=== PATIENT | male | born 1960 | race Caucasian/White ===

== ENCOUNTER 2023-12-30 13:49 | Inpatient (IN) | payer MEDICARE, BC ==
--- NOTE | 2023-12-30 14:33 | ED ---
Recheck HPI - General Chief Complaint: Extremity Problem,Nontraumatic Stated Complaint: L leg blistering Time Seen by Provider: 12/30/23 13:58 Source: patient, RN notes reviewed, old records reviewed Mode of arrival: wheelchair Limitations: no limitations - History of Present Illness Initial Comments: This is a 63-year-old male to the ER today. This patient [place] for evaluation regards to left lower extremity pain swelling redness significant swelling and edema both lower extremities overall weakness and fatigue recent diagnosis of pneumonia. Pneumonia with low blood pressure and significant IV resuscitation. Patient was at different hospital yesterday and presents to the ER for evaluation today MD Complaint: other (Weakness low blood pressure left lower extremity pain and swelling) -: days(s) Returns Today for: needs IV antibiotics, persistent/worsening pain related to initial visit Symptoms Since Prior Visit: worsening pain, worsening swelling, worsening redness Context: called for abnormal lab result Associated Symptoms: shortness of breath, malaise Treatments Prior to Arrival: Given Antibiotics on - Related Data Home Medications Medication Instructions Recorded Confirmed Glucosam/Artem-Msm1/C/Antoni/Bosw 1 tab PO DAILY 12/30/23 12/30/23 [Glucosamine-Chondroitin Tablet] Levothyroxine Sodium [Synthroid] 100 mcg PO DAILY 12/30/23 12/30/23 Multivit-Mins/Iron/Folic/Lycop 1 tab PO DAILY 12/30/23 12/30/23 [Centrum Men's Tablet] [place]-3/Dha/Epa/Fish Oil [Fish Oil 1 cap PO DAILY 12/30/23 12/30/23 1,000 mg Softgel] Zinc Gluconate [Zinc] 50 mg PO DAILY 12/30/23 12/30/23 Previous Rx's Medication Instructions Recorded Furosemide [Lasix] 20 mg PO DAILY #30 tab 01/09/24 Linezolid [Zyvox] 600 mg PO Q12HR 7 Days #14 tab 01/09/24 methylPREDNISolone Dose Pack 4 mg PO DIRECTED #1 packet 01/09/24 [Medrol Dose Pack] Allergies Allergy/AdvReac Type Severity Reaction Status Date / Time No Known Allergies Allergy Verified 12/30/23 15:04 Review of Systems ROS Statement: Those systems with pertinent positive or pertinent negative responses have been documented in the HPI. ROS Other: All systems not noted in ROS Statement are negative. Past Medical History Past Medical History: Thyroid Disorder Additional Past Surgical History / Comment(s): cataracts Smoking Status: Never smoker Past Alcohol Use History: None Reported Past Drug Use History: None Reported General Exam Limitations: no limitations General appearance: alert, in no apparent distress Head exam: Present: atraumatic, normocephalic, normal inspection Eye exam: Present: normal appearance, PERRL, EOMI. Absent: scleral icterus, conjunctival injection, periorbital swelling ENT exam: Present: normal exam, mucous membranes moist Neck exam: Present: normal inspection. Absent: tenderness, meningismus, lymphadenopathy Respiratory exam: Present: normal lung sounds bilaterally. Absent: respiratory distress, wheezes, rales, rhonchi, stridor Cardiovascular Exam: Present: regular rate, normal rhythm, normal heart sounds. Absent: systolic murmur, diastolic murmur, rubs, gallop, clicks GI/Abdominal exam: Present: soft, normal bowel sounds. Absent: distended, tenderness, guarding, rebound, rigid Extremities exam: Present: normal inspection, full ROM, normal capillary refill. Absent: tenderness, pedal edema, joint swelling, calf tenderness Back exam: Present: normal inspection Neurological exam: Present: alert, oriented X3, CN II-XII intact Psychiatric exam: Present: normal affect, normal mood Skin exam: Present: warm, dry, intact, normal color. Absent: rash Course Vital Signs 12/30/23 12/30/23 12/30/23 14:09 15:26 16:43 Temperature 98.3 F 99.0 F Pulse Rate 85 81 76 Pulse Rate [ Pulse Oximetery ] Respiratory 20 22 18 Rate Blood Pressure 111/58 103/67 102/56 Blood Pressure [Left Arm] O2 Sat by Pulse 97 98 98 Oximetry 12/30/23 12/31/23 12/31/23 21:23 00:19 06:25 Temperature Pulse Rate 89 97 96 Pulse Rate [ Pulse Oximetery ] Respiratory 18 18 18 Rate Blood Pressure 123/62 133/67 Blood Pressure [Left Arm] O2 Sat by Pulse 98 98 96 Oximetry 12/31/23 12/31/23 12/31/23 07:40 09:00 10:00 Temperature 99.2 F Pulse Rate 97 68 86 Pulse Rate [ Pulse Oximetery ] Respiratory 20 16 16 Rate Blood Pressure 91/47 100/60 120/80 Blood Pressure [Left Arm] O2 Sat by Pulse 98 98 98 Oximetry 12/31/23 12/31/23 12/31/23 12:00 14:43 14:54 Temperature 98.7 F Pulse Rate 86 86 Pulse Rate [ 92 Pulse Oximetery ] Respiratory 16 16 20 Rate Blood Pressure 119/66 116/60 Blood Pressure 113/71 [Left Arm] O2 Sat by Pulse 98 98 99 Oximetry - Reevaluation(s) Reevaluation #1: 12/30/23 16:09 Medical records reviewed Reevaluation #2: 12/30/23 16:09 Patient symptoms unchanged Reevaluation #3: 12/30/23 16:09 Patient informed of results and questions answered Reevaluation #4: Was pt. sent in by a medical professional or institution (KRISTIAN Childs, FREIGHT RATE CLERK, urgent care, hospital, or [facility]...) When possible be specific @ -no Did you speak to anyone other than the patient for history (EMS, parent, family, police, friend...)? What history was obtained from this source @ -no Did you review nursing and triage notes (agree or disagree)? Why? @ -agree Are old charts reviewed (outside hosp., previous admission, EMS record, old EKG, old radiological studies, urgent care reports/EKG's, [facility] records)? Report findings @ -yes Differential Diagnosis (chest pain, altered mental status, abdominal pain women, abdominal pain men, vaginal bleeding, weakness, fever, dyspnea, syncope, headache, dizziness, GI bleed, back pain, seizure, CVA, palpatations, mental health, musculoskeletal)? @ -prior EKG interpreted by me (3pts min.). @ -yes X-rays interpreted by me (1pt min.). @ -yes negative for acute disease CT interpreted by me (1pt min.). @ -no U/S interpreted by me (1pt. min.). @ -no What testing was considered but not performed or refused? (CT, X-rays, U/S, labs)? Why? @ -none What meds were considered but not given or refused? Why? @ -none Did you discuss the management of the patient with other professionals (professionals i.e. KRISTIAN Childs, FREIGHT RATE CLERK, lab, RT, psych nurse, social work nurse, yarn preparation supervisor, teacher, bsa/aml compliance officer, lining caser)? Give summary @ -no Was smoking cessation discussed for >3mins.? @ -no Was critical care preformed (if so, how long)? @ -no Were there social determinants of health that impacted care today? How? (Homelessness, low income, unemployed, alcoholism, drug addiction, transportation, low edu. Level, literacy, decrease access to med. care, long term, rehab)? @ -none Was there de-escalation of care discussed even if they declined (Discuss DNR or withdrawal of care, Hospice)? DNR status @ -no What co-morbidities impacted this encounter? (DM, HTN, Smoking, COPD, CAD, Cancer, CVA, ARF, Chemo, Hep., AIDS, mental health diagnosis, sleep apnea, morbid obesity)? @ -none Was patient admitted / discharged? Hospital course, mention meds given and route, prescriptions, significant lab abnormalities, going to OR and other pertinent info. @ - 63 male will be admitted patient presents with left lower extremity cellulitis significant lower extremity edema bilateral significant and pneumonia Discharge cellulitis and pneumonia Undiagnosed new problem with uncertain prognosis? @ -no Drug Therapy requiring intensive monitoring for toxicity (Heparin, Nitro, Insulin, Cardizem)? @ -no Were any procedures done? @ -no Diagnosis/symptom? @ - Acute, or Chronic, or Acute on Chronic? @ -Acute Uncomplicated (without systemic symptoms) or Complicated (systemic symptoms)? @ -Complicated Side effects of treatment? @ -no Exacerbation, Progression, or Severe Exacerbation? @ -exacerbation Poses a threat to life or bodily function? How? (Chest pain, [place], [place], pneumonia, PE, COPD, DKA, ARF, appy, cholecystitis, CVA, Diverticulitis, Homicidal, Suicidal, threat to staff... and all critical care pts) @ -yes extremes of age Reevaluation #5: Differential Fever: Pneumonia, viral URI, endocarditis, myocarditis, pericarditis, otitis, sinusitis, peritonsillar Abscess, retropharyngeal Abscess, epiglottitis, peritonitis, appendicitis, Becki cystitis, diverticulitis, hepatitis, colitis, UTI, PID, TOA, pyelonephritis, prostatitis, epididymitis, meningitis, encephal itis, pulmonary embolism, CVA, thyroid storm, pancreatitis, adrenal crisis, cavernous sinus thrombosis, this is not meant to be an all-inclusive list. - Consultations Consultation #1: With [facility] who agrees to admit this patient Medical Decision Making - Medical Decision Making 63 male will be admitted patient presents with left lower extremity cellulitis significant lower extremity edema bilateral significant and pneumonia - Lab Data Result diagrams: 01/07/24 04:37 01/07/24 04:37 Lab Results 12/30/23 12/30/23 12/30/23 Range/Units 15:16 15:16 15:16 WBC 12.2 H (3.8-10.6) k/uL RBC 3.45 L (4.30-5.90) m/uL Hgb 10.9 L (13.0-17.5) gm/dL Hct 33.1 L (39.0-53.0) % MCV 95.8 (80.0-100.0) fL MCH 31.7 (25.0-35.0) pg MCHC 33.1 (31.0-37.0) g/dL RDW 13.7 (11.5-15.5) % Plt Count 211 (150-450) k/uL MPV 7.9 Neutrophils % 82 % Lymphocytes % 14 % Monocytes % 2 % Eosinophils % 1 % Basophils % 0 % Neutrophils # 10.0 H (1.3-7.7) k/uL Lymphocytes # 1.7 (1.0-4.8) k/uL Monocytes # 0.2 (0-1.0) k/uL Eosinophils # 0.1 (0-0.7) k/uL Basophils # 0.0 (0-0.2) k/uL PT 12.0 (10.0-12.5) sec INR 1.1 (<1.2) APTT 30.8 H (22.0-30.0) sec Sodium 127 L (137-145) mmol/L Potassium 3.2 L (3.5-5.1) mmol/L Chloride 94 L (98-107) mmol/L Carbon Dioxide 20 L (22-30) mmol/L Anion Gap 13 mmol/L BUN 18 (9-20) mg/dL Creatinine 1.04 (0.66-1.25) mg/dL Est GFR (CKD-EPI)AfAm 87 (>60 ml/min/1.73 sqM) Est GFR (CKD-EPI)NonAf 75 (>60 ml/min/1.73 sqM) Glucose 120 H (74-99) mg/dL Plasma Lactic Acid Seth (0.7-2.0) mmol/L Calcium 7.8 L (8.4-10.2) mg/dL Phosphorus 2.2 L (2.5-4.5) mg/dL Magnesium 2.0 (1.6-2.3) mg/dL Total Bilirubin 0.8 (0.2-1.3) mg/dL AST 64 H (17-59) U/L ALT 39 (4-49) U/L Alkaline Phosphatase 65 (38-126) U/L Troponin I (0.000-0.034) ng/mL C-Reactive Protein 30.2 H (<1.0) mg/dL NT-Pro-B Natriuret Pep 742 pg/mL Total Protein 6.2 L (6.3-8.2) g/dL Albumin 3.2 L (3.5-5.0) g/dL 12/30/23 12/30/23 Range/Units 15:16 15:16 WBC (3.8-10.6) k/uL RBC (4.30-5.90) m/uL Hgb (13.0-17.5) gm/dL Hct (39.0-53.0) % MCV (80.0-100.0) fL MCH (25.0-35.0) pg MCHC (31.0-37.0) g/dL RDW (11.5-15.5) % Plt Count (150-450) k/uL MPV Neutrophils % % Lymphocytes % % Monocytes % % Eosinophils % % Basophils % % Neutrophils # (1.3-7.7) k/uL Lymphocytes # (1.0-4.8) k/uL Monocytes # (0-1.0) k/uL Eosinophils # (0-0.7) k/uL Basophils # (0-0.2) k/uL PT (10.0-12.5) sec INR (<1.2) APTT (22.0-30.0) sec Sodium (137-145) mmol/L Potassium (3.5-5.1) mmol/L Chloride (98-107) mmol/L Carbon Dioxide (22-30) mmol/L Anion Gap mmol/L BUN (9-20) mg/dL Creatinine (0.66-1.25) mg/dL Est GFR (CKD-EPI)AfAm (>60 ml/min/1.73 sqM) Est GFR (CKD-EPI)NonAf (>60 ml/min/1.73 sqM) Glucose (74-99) mg/dL Plasma Lactic Acid Seth 1.3 (0.7-2.0) mmol/L Calcium (8.4-10.2) mg/dL Phosphorus (2.5-4.5) mg/dL Magnesium (1.6-2.3) mg/dL Total Bilirubin (0.2-1.3) mg/dL AST (17-59) U/L ALT (4-49) U/L Alkaline Phosphatase (38-126) U/L Troponin I <0.012 (0.000-0.034) ng/mL C-Reactive Protein (<1.0) mg/dL NT-Pro-B Natriuret Pep pg/mL Total Protein (6.3-8.2) g/dL Albumin (3.5-5.0) g/dL - EKG Data -: EKG Interpreted by Me (EKG is sinus 82 SC 160 QRS 109 QTc 427) - Radiology Data Radiology results: report reviewed (X-ray is positive for pneumonia), image reviewed Disposition Clinical Impression: Venous stasis, Edema of lower extremity, Cellulitis, Pneumonia Disposition: ADMITTED IP TO THIS HOSP Condition: Fair Is patient prescribed a controlled substance at d/c from ED?: No Time of Disposition: 16:00
[2023-12-30 15:29] LABS: Basophils % (A) 0 %; Eosinophils # (A) 0.1 k/uL (0-0.7); Eosinophils % (A) 1 %; HCT 33.1 % (39.0-53.0); HGB 10.9 gm/dL (13.0-17.5); Lymphocytes # (A) 1.7 k/uL (1.0-4.8); Lymphocytes % (A) 14 %; MCH 31.7 pg (25.0-35.0); MCHC 33.1 g/dL (31.0-37.0); MCV 95.8 fL (80.0-100.0); Mean Platelet Volume 7.9; Monocytes # (A) 0.2 k/uL (0-1.0); Monocytes % (A) 2 %; Neutrophils % (A) 82 %; Platelet Count 211 k/uL (150-450); RBC 3.45 m/uL (4.30-5.90); RDW 13.7 % (11.5-15.5); WBC 12.2 k/uL (3.8-10.6)
[2023-12-30] MEDS: CLINDAMYCIN 600 MG in DEXTROSE 5% IN WATER 50 ML IVPB STA (15:31)
[2023-12-30 15:39] LABS: Sodium 127 mmol/L (137-145)
[2023-12-30 15:42] LABS: ALT 39 U/L (4-49); AST 64 U/L (17-59); African American GFR (CKD) 87 (>60 ml/min/1.73 sqM); Albumin 3.2 g/dL (3.5-5.0); Alkaline Phosphatase 65 U/L (38-126); Anion Gap 13 mmol/L; Blood Urea Nitrogen 18 mg/dL (9-20); Calcium 7.8 mg/dL (8.4-10.2); Carbon Dioxide 20 mmol/L (22-30); Chloride 94 mmol/L (98-107); Glucose 120 mg/dL (74-99); Non-African American GFR(CKD) 75 (>60 ml/min/1.73 sqM); Phosphorus 2.2 mg/dL (2.5-4.5); Potassium 3.2 mmol/L (3.5-5.1); Total Bilirubin 0.8 mg/dL (0.2-1.3); Total Protein 6.2 g/dL (6.3-8.2)
[2023-12-30 15:48] LABS: NT-Pro-B-Type Natriuretic Pept 742 pg/mL
[2023-12-30 15:55] LABS: INR 1.1 (<1.2); Partial Thromboplastin Time 30.8 sec (22.0-30.0)
[2023-12-30] MEDS ORDERED: MORPHINE SULFATE 4 MG/ML SYRINGE IV PRN (16:06)
[2023-12-30] MEDS ORDERED: ONDANSETRON 4 MG/2 ML VIAL IVP PRN (16:06)
[2023-12-30] MEDS ORDERED: NALOXONE 0.4 MG/ML 1 ML VIAL IV PRN (16:06)
[2023-12-30 16:18] LABS: C Reactive Protein 30.2 mg/dL (<1.0)
[2023-12-30] MEDS: LEVOFLOXACIN 750MG-D5W PMX 750 MG in DEXTROSE/WATER 1 150ML.BAG IVPB STA (16:43)
--- NOTE | 2023-12-30 17:12 | XR ---
EXAMINATION TYPE: XR chest 2V DATE OF EXAM: 12/30/2023 COMPARISON: None HISTORY: 63-year-old male with weakness TECHNIQUE: AP and lateral views FINDINGS: Heart normal size. There is interstitial prominence. No pleural effusion. However, there is a focal o pacity at the posterior mid lung on the lateral view. IMPRESSION: Possible focal medial and posterior left midlung opacity. Pneumonia not excluded. Follow-up CT in 2-3 weeks to assess for clearance following treatment. [facility] 12/30/2023 5:07 PM [facility], , 12/30/2023 5:10 PM
[2023-12-31] MEDS: CLINDAMYCIN 600 MG/50 ML-D5W 600 MG in DEXTROSE/WATER 1 50ML.BAG IVPB SCH (00:21)
[2023-12-31] MEDS ORDERED: Phosphorus Replacement Protoco 1 EACH MISC MISCELLANE PRN (09:36)
[2023-12-31] MEDS ORDERED: Potassium Replacement Protocol 1 EACH MISC MISCELLANE PRN (09:36)
[2023-12-31 09:37] LABS: ALT 43 U/L (10-49); AST 60 U/L (14-35); Albumin/Globulin Ratio 1.07 Ratio (1.60-3.17); Alkaline Phosphatase 63 U/L (41-126); BUN/Creat Ratio 16.11 Ratio (12.00-20.00); Blood Urea Nitrogen 14.5 mg/dL (9.0-27.0); Calcium 7.9 mg/dL (8.7-10.3); Carbon Dioxide 23.3 mmol/L (21.6-31.8); Chloride 105 mmol/L (96-109); Globulin 2.8 g/dL (1.6-3.3); Glucose 115 mg/dL (70-110); Sodium 138 mmol/L (135-145); Total Bilirubin 0.6 mg/dL (0.3-1.2); Total Protein 5.8 g/dL (6.2-8.2)
[2023-12-31 09:52] LABS: Basophils # (A) 0.02 X 10*3/uL (0.00-0.10); Basophils % (A) 0.2 %; Eosinophils # (A) 0.01 X 10*3/uL (0.04-0.35); Eosinophils % (A) 0.1 %; HCT 33.1 % (39.6-50.0); Lymphocytes # (A) 1.37 X 10*3/uL (0.90-5.00); MCH 31.4 pg (27.0-32.0); MCHC 33.2 g/dL (32.0-37.0); MCV 94.6 FL (80.0-97.0); Mean Platelet Volume 11.4 FL (9.5-12.2); Monocytes # (A) 0.95 X 10*3/uL (0.20-1.00); Monocytes % (A) 8.3 %; NRBC Per 100 WBC 0 X 10*3/uL (0.00-0.01); Neutrophils # (A) 9.04 X 10*3/uL (1.80-7.70); Neutrophils % (A) 78.8 %; Platelet Count 196 X 10*3/uL (140-440); WBC 11.46 X 10*3/uL (4.50-10.00)
[2023-12-31] MEDS: MULTIVITAMINS, THERA 1 EACH TAB PO SCH (10:26)
[2023-12-31] MEDS: LEVOTHYROXINE 100 MCG TAB PO SCH (10:26)
[2023-12-31] MEDS: ENOXAPARIN 40 MG/0.4 ML SYRINGE SQ SCH (10:26)
[2023-12-31] MEDS: SODIUM CHLORIDE 0.9% 1,000 ML IV SCH (10:26)
--- NOTE | 2023-12-31 14:33 | P.HPIM ---
History of Present Illness H&P Date: 12/31/23 History of present illness: This is a 63-year-old male patient with past medical history significant for hypothyroidism who presented to ER with a complaint of left lower extremity pain, swelling, redness, fatigue and further evaluation of recently diagnosed pneumonia. Patient stated that he was recently seen in the ER at a different facility, was diagnosed to have pneumonia and was evaluated for low blood pressure and required significant IV fluid resuscitation. Patient stated that he was sent home on antibiotics cefdinir and doxycycline then he started to notice left leg purplish discoloration and blister. Patient complained of chills, denied any fever, denied any sore throat, chest pain, palpitations, nausea vomiting diarrhea constipation abdominal pain dysuria urgency frequency. Patient complaining of left lower extremity pain, swelling. Patient complained of swelling of both legs, worse after patient received IV fluids at different hospital. Patient afebrile, heart rate 85, respiratory rate 20, blood pressure 111/58, saturating 97% on room air. WBCs 12.2 with absolute neutrophils 10.0, hemoglobin 10.9, platelet 211. INR 1.1. Sodium was 127 improved to 138. Potassium was low 3.2 now improved to 4.0. Normal BUN/creatinine at 0.9. Mildly elevated AST at 60, otherwise unremarkable LFTs. Troponin unremarkable. Chest x-ray showed focal medial posterior left midlung opacity. REVIEW OF SYSTEMS: CONSTITUTIONAL: Complains of fatigue. HEENT: No recent visual problems or hearing problems. Denied any sore throat. CARDIOVASCULAR: No chest pain, orthopnea, PND, no palpitations, no syncope. PULMONARY: Cough shortness of breath. GASTROINTESTINAL: No diarrhea, no nausea, no vomiting, no abdominal pain. NEUROLOGICAL: No headaches, no weakness, no numbness. HEMATOLOGICAL: Denies any bleeding or petechiae. GENITOURINARY: Denies any burning micturition, frequency, or urgency. MUSCULOSKELETAL/RHEUMATOLOGICAL: Denies any joint pain, swelling, or any muscle pain. Complains of lower extremity edema. ENDOCRINE: Denies any polyuria or polydipsia. The rest of the 14-point review of systems is negative. PHYSICAL EXAMINATION: GENERAL: The patient is A&O x3, NAD HEENT: EOMI, Sclerae anicteric, Moist Mucous membranes Neck: Supple, Non tender, No JVD PULMONARY: Equal breath souds B/L, No wheezing, No crackles. CARDIOVASCULAR: S1, S2 present. No murmurs, rubs, or gallops. ABDOMEN: Soft, nontender, nondistended, normoactive bowel sounds. No guarding or rebound tenderness. MUSCULOSKELETAL: No edema, No cyanosis. No clubbing. Normal ROM. Intact peripheral pulses. EXTREMITIES: Bilateral lower extremity edema, worse on left. Left crisostomo blister, erythema, skin peeling, tenderness. NEUROLOGICAL: CN 2-12 grossly intact. 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 Lower extremity edema: Hyponatremia: Improved Hypokalemia: Improved Recently treated with cefdinir and doxycycline for pneumonia, received IV fluids at different hospital for low blood pressure Hold off doxycycline Septrin Currently on clindamycin and Levaquin Blood cultures. Infectious disease consulted Ultrasound venous to rule out DVT Echocardiogram Hypothyroidism: Continue Synthroid DVT prophylaxis Subcutaneous Lovenox Monitor vital signs and labs Continue telemetry monitoring Labs and medication were reviewed. Continue same treatment. Resume home medication. Further recommendations as per clinical course of the patient Dictation was produced using [employer] dictation software. please excuse any grammatical, word or spelling errors. Past Medical History Past Medical History: Thyroid Disorder Additional Past Surgical History / Comment(s): cataracts Smoking Status: Never smoker Past Alcohol Use History: None Reported Past Drug Use History: None Reported Medications and Allergies Home Medications Medication Instructions Recorded Confirmed Type Cefdinir [Omnicef] 300 mg PO BID 12/30/23 12/30/23 History Doxycycline Hyclate 100 mg PO BID 12/30/23 12/30/23 History Glucosam/Artem-Msm1/C/Antoni/Bosw 1 tab PO DAILY 12/30/23 12/30/23 History [Glucosamine-Chondroitin Tablet] Levothyroxine Sodium [Synthroid] 100 mcg PO DAILY 12/30/23 12/30/23 History Multivit-Mins/Iron/Folic/Lycop 1 tab PO DAILY 12/30/23 12/30/23 History [Centrum Men's Tablet] [place]-3/Dha/Epa/Fish Oil [Fish Oil 1 cap PO DAILY 12/30/23 12/30/23 History 1,000 mg Softgel] Zinc Gluconate [Zinc] 50 mg PO DAILY 12/30/23 12/30/23 History Allergies Allergy/AdvReac Type Severity Reaction Status Date / Time No Known Allergies Allergy Verified 12/30/23 15:04 Physical Exam Vitals: Vital Signs Temp Pulse Resp BP Pulse Ox 12/31/23 12:00 86 16 119/66 98 12/31/23 10:00 86 16 120/80 98 12/31/23 09:00 68 16 100/60 98 12/31/23 07:40 99.2 F 97 20 91/47 98 12/31/23 06:25 96 18 133/67 96 12/31/23 00:19 97 18 123/62 98 12/30/23 21:23 89 18 98 12/30/23 16:43 76 18 102/56 98 12/30/23 15:26 99.0 F 81 22 103/67 98 Results CBC & Chem 7: 12/31/23 06:17 12/31/23 06:17 Labs: Abnormal Lab Results - Last 24 Hours (Table) 12/30/23 12/30/23 12/30/23 Range/Units 15:16 15:16 15:16 WBC 12.2 H (3.8-10.6) k/uL RBC 3.45 L (4.30-5.90) m/uL Hgb 10.9 L (13.0-17.5) gm/dL Hct 33.1 L (39.0-53.0) % Immature Gran # (0.00-0.04) X 10*3/uL Neutrophils # 10.0 H (1.3-7.7) k/uL Eosinophils # (0.04-0.35) X 10*3/uL APTT 30.8 H (22.0-30.0) sec Sodium 127 L (137-145) mmol/L Potassium 3.2 L (3.5-5.1) mmol/L Chloride 94 L (98-107) mmol/L Carbon Dioxide 20 L (22-30) mmol/L Glucose 120 H (74-99) mg/dL Calcium 7.8 L (8.4-10.2) mg/dL Phosphorus 2.2 L (2.5-4.5) mg/dL AST 64 H (17-59) U/L C-Reactive Protein 30.2 H (<1.0) mg/dL Total Protein 6.2 L (6.3-8.2) g/dL Albumin 3.2 L (3.5-5.0) g/dL Albumin/Globulin Ratio (1.60-3.17) Ratio 12/31/23 12/31/23 Range/Units 06:17 06:17 WBC 11.46 H (3.8-10.6) k/uL RBC 3.50 L (4.30-5.90) m/uL Hgb 11.0 L (13.0-17.5) gm/dL Hct 33.1 L (39.0-53.0) % Immature Gran # 0.07 H (0.00-0.04) X 10*3/uL Neutrophils # 9.04 H (1.3-7.7) k/uL Eosinophils # 0.01 L (0.04-0.35) X 10*3/uL APTT (22.0-30.0) sec Sodium (137-145) mmol/L Potassium (3.5-5.1) mmol/L Chloride (98-107) mmol/L Carbon Dioxide (22-30) mmol/L Glucose 115 H (74-99) mg/dL Calcium 7.9 L (8.4-10.2) mg/dL Phosphorus 2.0 L (2.5-4.5) mg/dL AST 60 H (17-59) U/L C-Reactive Protein (<1.0) mg/dL Total Protein 5.8 L (6.3-8.2) g/dL Albumin 3.0 L (3.5-5.0) g/dL Albumin/Globulin Ratio 1.07 L (1.60-3.17) Ratio
[2023-12-31] MEDS: LEVOFLOXACIN 750MG-D5W PMX 750 MG in DEXTROSE/WATER 1 150ML.BAG IVPB SCH (15:16)
--- NOTE | 2023-12-31 16:26 | US ---
EXAMINATION TYPE: US venous doppler duplex LE BI DATE OF EXAM: 12/31/2023 2:33 PM COMPARISON: NONE CLINICAL INDICATION: Male, 63 years old with history of Edema; Edema SIDE PERFORMED: bilateral TECHNIQUE: The lower extremity deep venous system is examined utilizing real time linear array sonog rob with graded compression, doppler sonography and color-flow sonography. VESSELS IMAGED: Common Femoral Vein Deep Femoral Vein Greater Saphenous Vein * Femoral Vein Popliteal Vein Small Saphenous Vein * Proximal Calf Veins (* superficial vessels) Manager Learning notes: Technical limitations due to patient's body habitus. Right Leg: no evidence of DVT as visualized Left Leg: no evidence of DVT as visualized. Lymph node left groin = 4.2 x 1.5 x 4.5cm IMPRESSION: 1. No evidence for DVT within the bilateral lower extremities imaged from the groin to the upper calv es. Some technical limitations as above. 2. An enlarged lymph node in the left inguinal region measuring up to 4.2 cm short axis. This may be reactive/post inflammatory and should be followed clinically to ensure stability/involution in order to exclude a neoplastic etiology [facility], , 12/31/2023 4:24 PM
[2023-12-31] MEDS: ceFAZolin 3 GM in SODIUM CHLORIDE 0.9% 100 ML IVPB SCH (17:06)
[2024-01-01] MEDS ORDERED: DEXTROSE IVPB SCH
[2024-01-01] MEDS ORDERED: CLINDAMYCIN IVPB SCH
[2024-01-01] MEDS ORDERED: WATER IVPB SCH
[2024-01-01] MEDS ORDERED: [UNRECOGNIZED DRUG - OTHER] IVPB SCH
[2024-01-01] MEDS: CLINDAMYCIN 900 MG in DEXTROSE 5% IN WATER 50 ML IVPB SCH (00:34)
--- NOTE | 2024-01-01 07:57 | P.CONS ---
History of Present Illness - Reason for Consult Consult date: 12/31/23 Left lower extremity cellulitis, pneumonia Requesting physician: Yefri Cruz - Chief Complaint Increasing swelling redness to the left leg x 2 days - History of Present Illness Patient is a 63-year-old male with a past medical history significant for thyroid disorder presenting to the hospital for evaluation of left lower extremity pain swelling and redness symptom has been going on for about 2 days patient mention he started having symptoms of weakness low blood pressure and dizziness for the patient was evaluated at the ER in [place] with the vince ent has been diagnosed with the pneumonia and has been discharged on Ceftin on and doxycycline patient subsequently noticed to having increasing swelling redness and blister formation to the left lower extremity and also started having pain to the left leg describing it to be sharp almost 10 of 10 in severity with associated swelling and redness and blister formation but no open wound or any drainage did have some chills and low-grade fever for the patient was evaluated on presentation to the hospital he did have low-grade fever of 99 degrees pulmonary patient was nontachycardic hypotensive or hypoxic and no need for supplemental oxygen he did have white count of 12.2 with a left shift creat inine has been normal AST is mildly elevated CRP elevated patient did have a chest x-ray possible focal medial posterior left midlung opacity pneumonia not excluded patient did have a venous Doppler study no evidence of DVT left known left groin patient was started on Levaquin and clindamycin infectious disease was consulted for further management of antibiotic therapy Review of Systems Positive point and negatives has been mentioned in the HPI, complete review of systems was performed and all other systems are negative Past Medical History Past Medical History: Thyroid Disorder Additional Past Surgical History / Comment(s): cataracts Smoking Status: Never smoker Past Alcohol Use History: None Reported Past Drug Use History: None Reported Medications and Allergies Home Medications Medication Instructions Recorded Confirmed Type Cefdinir [Omnicef] 300 mg PO BID 12/30/23 12/30/23 History Doxycycline Hyclate 100 mg PO BID 12/30/23 12/30/23 History Glucosam/Artem-Msm1/C/Antoni/Bosw 1 tab PO DAILY 12/30/23 12/30/23 History [Glucosamine-Chondroitin Tablet] Levothyroxine Sodium [Synthroid] 100 mcg PO DAILY 12/30/23 12/30/23 History Multivit-Mins/Iron/Folic/Lycop 1 tab PO DAILY 12/30/23 12/30/23 History [Centrum Men's Tablet] Purchase-3/Dha/Epa/Fish Oil [Fish Oil 1 cap PO DAILY 12/30/23 12/30/23 History 1,000 mg Softgel] Zinc Gluconate [Zinc] 50 mg PO DAILY 12/30/23 12/30/23 History Allergies Allergy/AdvReac Type Severity Reaction Status Date / Time No Known Allergies Allergy Verified 12/30/23 15:04 Physical Exam Vitals: Vital Signs Temp Pulse Resp BP Pulse Ox 12/31/23 12:00 86 16 119/66 98 12/31/23 10:00 86 16 120/80 98 12/31/23 09:00 68 16 100/60 98 12/31/23 07:40 99.2 F 97 20 91/47 98 12/31/23 06:25 96 18 133/67 96 12/31/23 00:19 97 18 123/62 98 12/30/23 21:23 89 18 98 12/30/23 16:43 76 18 102/56 98 12/30/23 15:26 99.0 F 81 22 103/67 98 12/30/23 14:09 98.3 F 85 20 111/58 97 GENERAL DESCRIPTION: Elderly male up in bed, no distress. No tachypnea or accessory muscle of respiration use. HEENT: Shows Pallor , no scleral icterus. Oral mucous membrane is dry. No pha ryngeal erythema or thrush NECK: Trachea central, no thyromegaly. LUNGS: Unlabored breathing. Decreased breath sound the base. No wheeze or crackle. HEART: S1, S2, regular rate and rhythm. No loud murmur ABDOMEN: Soft, no tenderness , guarding or rigidity, no organomegaly EXTREMITIES: Left lower extremity diffuse swelling redness and blister formation which is warm and tender to touch SKIN: No rash, no masses palpable. NEUROLOGICAL: The patient is awake, alert, oriented x3, mood and affect normal. Results CBC & Chem 7: 12/31/23 06:17 12/31/23 06:17 Labs: Abnormal Lab Results - Last 24 Hours (Table) 12/30/23 12/30/23 12/30/23 Range/Units 15:16 15:16 15:16 WBC 12.2 H (3.8-10.6) k/uL RBC 3.45 L (4.30-5.90) m/uL Hgb 10.9 L (13.0-17.5) gm/dL Hct 33.1 L (39.0-53.0) % Immature Gran # (0.00-0.04) X 10*3/uL Neutrophils # 10.0 H (1.3-7.7) k/uL Eosinophils # (0.04-0.35) X 10*3/uL APTT 30.8 H (22.0-30.0) sec Sodium 127 L (137-145) mmol/L Potassium 3.2 L (3.5-5.1) mmol/L Chloride 94 L (98-107) mmol/L Carbon Dioxide 20 L (22-30) mmol/L Glucose 120 H (74-99) mg/dL Calcium 7.8 L (8.4-10.2) mg/dL Phosphorus 2.2 L (2.5-4.5) mg/dL AST 64 H (17-59) U/L C-Reactive Protein 30.2 H (<1.0) mg/dL Total Protein 6.2 L (6.3-8.2) g/dL Albumin 3.2 L (3.5-5.0) g/dL Albumin/Globulin Ratio (1.60-3.17) Ratio 12/31/23 12/31/23 Range/Units 06:17 06:17 WBC 11.46 H (3.8-10.6) k/uL RBC 3.50 L (4.30-5.90) m/uL Hgb 11.0 L (13.0-17.5) gm/dL Hct 33.1 L (39.0-53.0) % Immature Gran # 0.07 H (0.00-0.04) X 10*3/uL Neutrophils # 9.04 H (1.3-7.7) k/uL Eosinophils # 0.01 L (0.04-0.35) X 10*3/uL APTT (22.0-30.0) sec Sodium (137-145) mmol/L Potassium (3.5-5.1) mmol/L Chloride (98-107) mmol/L Carbon Dioxide (22-30) mmol/L Glucose 115 H (74-99) mg/dL Calcium 7.9 L (8.4-10.2) mg/dL Phosphorus 2.0 L (2.5-4.5) mg/dL AST 60 H (17-59) U/L C-Reactive Protein (<1.0) mg/dL Total Protein 5.8 L (6.3-8.2) g/dL Albumin 3.0 L (3.5-5.0) g/dL Albumin/Globulin Ratio 1.07 L (1.60-3.17) Ratio Assessment and Plan (1) Left leg cellulitis Current Visit: Yes Status: Acute Code(s): L03.116 - CELLULITIS OF LEFT LOWER LIMB SNOMED Code(s): 54741291175650318 Plan: 1patient presented hospital with extensive left lower extremity cellulitis in this patient noted to have diffuse swelling redness blister formation likely s treptococcal cellulitis failing outpatient oral antibiotic therapy patient is clinically not behaving as pneumonia with no significant cough respiratory symptoms not hypoxic or for supplemental oxygen. 2discontinue Levaquin. 3we will increase the dose of clindamycin to 900 mg and add cefazolin keeping in mind extensive cellulitis. 4local wound care to the left leg with ABD to the blistered area followed by Jacoby wrap from just above the toe to below the knee change daily. We will follow on clinical condition and cultures to further adjust medication if needed Thank you for this consultation we will follow the patient along with you Dictation was produced using [employer] dictation software. please excuse any grammatical, word or spelling errors. Time with Patient: Greater than 30
[2024-01-01 08:40] LABS: Basophils # (A) 0.04 X 10*3/uL (0.00-0.10); Basophils % (A) 0.3 %; Eosinophils # (A) 0.08 X 10*3/uL (0.04-0.35); Eosinophils % (A) 0.6 %; HCT 32.1 % (39.6-50.0); HGB 10.5 g/dL (13.0-17.0); Lymphocytes % (A) 15.3 %; MCH 31.2 pg (27.0-32.0); MCHC 32.7 g/dL (32.0-37.0); MCV 95.3 FL (80.0-97.0); Mean Platelet Volume 11.6 FL (9.5-12.2); Monocytes # (A) 1.21 X 10*3/uL (0.20-1.00); Monocytes % (A) 8.8 %; NRBC Per 100 WBC 0 X 10*3/uL (0.00-0.01); Neutrophils % (A) 73.8 %; Platelet Count 217 X 10*3/uL (140-440); RBC 3.37 X 10*6/uL (4.40-5.60); RDW 14.3 % (11.5-14.5)
[2024-01-01 08:58] LABS: Blood Urea Nitrogen 11.6 mg/dL (9.0-27.0); Calcium 7.8 mg/dL (8.7-10.3); Carbon Dioxide 22.5 mmol/L (21.6-31.8); Chloride 105 mmol/L (96-109); Glucose 121 mg/dL (70-110); Potassium 3.9 mmol/L (3.5-5.5); Sodium 138 mmol/L (135-145)
--- NOTE | 2024-01-01 12:44 | P.PN ---
Subjective Progress Note Date: 01/01/24 Principal diagnosis: Reason for follow-up is left lower extremity cellulitis and leukocytosis Patient is a 63-year-old male with a past medical history significant for thyroid disorder presenting to the hospital for evaluation of left lower extremity pain swelling and redness that has been going on for about 2 days before presentation to the hospital. On today's evaluation that is 01/01/2024, patient has been afebrile, patient is breathing comfortably and is currently on room air, patient denies having any significant cough no chest pain shortness of breath, patient denies nausea vomiting or diarrhea and no abdominal pain, left lower extremity pain and swelling redness slightly decreased. Patient white count slightly up to 13.70, creatinine is 1.0 blood cultures are pending Objective - Vital Signs Vital signs: Vital Signs Temp 97.9 F 01/01/24 08:25 Pulse 93 01/01/24 08:25 Resp 17 01/01/24 08:25 BP 132/73 01/01/24 08:25 Pulse Ox 98 01/01/24 08:25 FiO2 Intake & Output 12/31/23 01/01/24 01/01/24 18:59 06:59 18:59 Intake Total 250 Balance 250 Weight 127.006 kg Intake: Intake, IV Titration 250 Amount Levofloxacin 750Mg-D5w 150 Pmx 750 mg In Dextrose/ Water 1 150ml.bag @ 100 mls/hr IVPB Q24H [facility] Rx#: [id number] ceFAZolin 3 gm In Sodium 100 Chloride 0.9% 100 ml @ 200 mls/hr IVPB Q8HR [facility] Rx#:[id number] Other: Voiding Method Toilet # Voids 1 - Exam GENERAL DESCRIPTION: An elderly male up in the chair in no distress RESPIRATORY SYSTEM: Unlabored breathing , decreased breath sounds at bases HEART: S1 S2 regular rate and rhythm , ABDOMEN: Soft , no tenderness EXTREMITIES: Left leg swelling redness slightly decreased did have some open blister with clear drainage which has been cultured - Labs CBC & Chem 7: 01/01/24 05:55 01/01/24 05:55 Labs: Abnormal Lab Results - Last 24 Hours (Table) 01/01/24 01/01/24 Range/Units 05:55 05:55 WBC 13.70 H (4.50-10.00) X 10*3/uL RBC 3.37 L (4.40-5.60) X 10*6/uL Hgb 10.5 L (13.0-17.0) g/dL Hct 32.1 L (39.6-50.0) % Immature Gran # 0.17 H (0.00-0.04) X 10*3/uL Neutrophils # 10.10 H (1.80-7.70) X 10*3/uL Monocytes # 1.21 H (0.20-1.00) X 10*3/uL BUN/Creatinine Ratio 11.60 L (12.00-20.00) Ratio Glucose 121 H (70-110) mg/dL Calcium 7.8 L (8.7-10.3) mg/dL Microbiology - Last 24 Hours (Table) 12/30/23 15:16 Blood Culture - Preliminary Blood Assessment and Plan (1) Left leg cellulitis Current Visit: Yes Status: Acute Code(s): L03.116 - CELLULITIS OF LEFT LOWER LIMB SNOMED Code(s): 94643337003966321 Plan: 1patient [facility] hospital with extensive left lower extremity cellulitis in this patient noted to have diffuse swelling redness blister formation likely streptococcal cellulitis failing outpatient oral antibiotic therapy patient is clinically not behaving as pneumonia with no significant cough respiratory symptoms not hypoxic or for supplemental oxygen. 2patient redness slightly decreased however slight worsening of the white count need to monitor closely local culture has been obtained results will be followed And will continue with the clindamycin and cefazolin reevaluate the leg tomorrow questions answered Dictation was produced using [employer] dictation software. please excuse any grammatical, word or spelling errors. Time with Patient: Less than 30
--- NOTE | 2024-01-01 13:55 | P.PN ---
Subjective Progress Note Date: 01/01/24 This is a 63-year-old male patient with past medical history significant for hypothyroidism who presented to ER with a complaint of left lower extremity pain, swelling, redness, fatigue and further evaluation of recently diagnosed pneumonia. Patient stated that he was recently seen in the ER at a different facility, was diagnosed to have pneumonia and was evaluated for low blood pressure and required significant IV fluid resuscitation. Patient stated that he was sent home on antibiotics cefdinir and doxycycline then he started to notice left leg purplish discoloration and blister. Patient complained of chills, denied any fever, denied any sore throat, chest pain, palpitations, nausea vomiting diarrhea constipation abdominal pain dysuria urgency frequency. Patient complaining of left lower extremity pain, swelling. Patient complained of swelling of both legs, worse after patient received IV fluids at different hospital. Patient afebrile, heart rate 85, respiratory rate 20, blood pressure 111/58, saturating 97% on room air. WBCs 12.2 with absolute neutrophils 10.0, hemoglobin 10.9, platelet 211. INR 1.1. Sodium was 127 improved to 138. Potassium was low 3.2 now improved to 4.0. Normal BUN/creatinine at 0.9. Mildly elevated AST at 60, otherwise unremarkable LFTs. Troponin unremarkable. Chest x-ray showed focal medial posterior left midlung opacity. 12/31. Patient seen and examined. Blood work done this morning showed WBC 13.7, hematin 0.5, platelet count 217, sodium 138, potassium 3.9. Duplex ultrasound showed no evidence of DVT in lower extremities. Patient had low-grade fevers overnight Still has redness of left lower extremity REVIEW OF SYSTEMS: CONSTITUTIONAL: As mentioned above CARDIOVASCULAR: No chest pain, no palpitations, no syncope. PULMONARY: No shortness of breath, no cough, GASTROINTESTINAL: No diarrhea, no nausea, no vomiting, no abdominal pain. NEUROLOGICAL: No headaches, no weakness, PHYSICAL EXAMINATION: GENERAL: The patient is alert and oriented x3, not in any acute distress. Well developed, well nourished. HEENT: Pupils are round and equally reacting to light. EOMI. No scleral icterus. No conjunctival pallor. Normocephalic, atraumatic. No pharyngeal erythema. No thyromegaly. CARDIOVASCULAR: S1 and S2 present. No murmurs, rubs, or gallops. PULMONARY: Chest is clear to auscultation, no wheezing or crackles. ABDOMEN: Soft, nontender, nondistended, normoactive bowel sounds. No palpable organomegaly. MUSCULOSKELETAL: Left lower extremity erythema EXTREMITIES: No cyanosis, clubbing, or pedal edema. NEUROLOGICAL: Gross neurological examination did not reveal any focal deficits. SKIN: No rashes. Assessment and plan Left lower EXTR cellulitis Pneumonia Left leg blister Hyponatremia Hypokalemia Monitor vital signs Monitor CBC Monitor CMP Follow-up blood culture Follow-up on wound culture Continue IV clindamycin and cefazolin Continue Synthroid ID following Labs and medication were reviewed.. Continue same treatment. Continue with symptomatic treatment. Resume home medication. Monitor labs and vitals. DVT and GI prophylaxis. Further recommendations as per clinical course of the patient Dictation was produced using [employer] dictation software. please excuse any grammatical, word or spelling errors. Objective - Vital Signs Vital signs: Vital Signs Temp 99.9 F H 01/01/24 01:32 Pulse 92 01/01/24 01:32 Resp 18 01/01/24 01:32 BP 97/56 01/01/24 01:32 Pulse Ox 96 01/01/24 01:32 FiO2 Intake & Output 12/31/23 01/01/24 01/01/24 18:59 06:59 18:59 Intake Total 250 Balance 250 Weight 127.006 kg Intake: Intake, IV Titration 250 Amount Levofloxacin 750Mg-D5w 150 Pmx 750 mg In Dextrose/ Water 1 150ml.bag @ 100 mls/hr IVPB Q24H [facility] Rx#: [id number] ceFAZolin 3 gm In Sodium 100 Chloride 0.9% 100 ml @ 200 mls/hr IVPB Q8HR [facility] Rx#:[id number] Other: Voiding Method Toilet # Voids 1 - Labs CBC & Chem 7: 01/01/24 05:55 01/01/24 05:55 Labs: Abnormal Lab Results - Last 24 Hours (Table) 12/31/23 12/31/23 01/01/24 Range/Units 06:17 06:17 05:55 WBC 11.46 H 13.70 H (4.50-10.00) X 10*3/uL RBC 3.50 L 3.37 L (4.40-5.60) X 10*6/uL Hgb 11.0 L 10.5 L (13.0-17.0) g/dL Hct 33.1 L 32.1 L (39.6-50.0) % Immature Gran # 0.07 H 0.17 H (0.00-0.04) X 10*3/uL Neutrophils # 9.04 H 10.10 H (1.80-7.70) X 10*3/uL Monocytes # 1.21 H (0.20-1.00) X 10*3/uL Eosinophils # 0.01 L (0.04-0.35) X 10*3/uL BUN/Creatinine Ratio (12.00-20.00) Ratio Glucose 115 H (70-110) mg/dL Calcium 7.9 L (8.7-10.3) mg/dL AST 60 H (14-35) U/L Total Protein 5.8 L (6.2-8.2) g/dL Albumin 3.0 L (3.8-4.9) g/dL Albumin/Globulin Ratio 1.07 L (1.60-3.17) Ratio 01/01/24 Range/Units 05:55 WBC (4.50-10.00) X 10*3/uL RBC (4.40-5.60) X 10*6/uL Hgb (13.0-17.0) g/dL Hct (39.6-50.0) % Immature Gran # (0.00-0.04) X 10*3/uL Neutrophils # (1.80-7.70) X 10*3/uL Monocytes # (0.20-1.00) X 10*3/uL Eosinophils # (0.04-0.35) X 10*3/uL BUN/Creatinine Ratio 11.60 L (12.00-20.00) Ratio Glucose 121 H (70-110) mg/dL Calcium 7.8 L (8.7-10.3) mg/dL AST (14-35) U/L Total Protein (6.2-8.2) g/dL Albumin (3.8-4.9) g/dL Albumin/Globulin Ratio (1.60-3.17) Ratio Microbiology - Last 24 Hours (Table) 12/30/23 15:16 Blood Culture - Preliminary Blood
--- NOTE | 2024-01-01 17:52 | CA ---
Transthoracic Echo Report Name: Tin Chavez Age: 63 Gender: M : 1960 Exam Date: 01/01/2024 07:38 Exam Location: [facility] Ht (in): 71 Wt (lb): 280 Ordering Physician: Yefri Cruz MD Attending/Referring Phys: Floor Refinisher Jewels Cheema RDCS Procedure CPT: Indications: edema Cardiac Hx: Technical Quality: Technically difficult study Contrast 1: Definity Total Dose (mL): 2 Contrast 2: Total Dose (mL): MEASUREMENTS (Male / Female) Normal Values 2D ECHO LV Diastolic Diameter PLAX 5.0 cm 4.2 - 5.9 / 3.9 - 5.3 cm LV Systolic Diameter PLAX 3.2 cm IVS Diastolic Thickness 1.1 cm 0.6 - 1.0 / 0.6 - 0.9 cm LVPW Diastolic Thickness 1.2 cm 0.6 - 1.0 / 0.6 - 0.9 cm LV Relative Wall Thickness 0.5 LVOT Diameter 2.5 cm LV Diastolic Volume MOD BP 160.2 cm??? 67 - 155 / 56 - 104 cm??? LV Systolic Volume MOD BP 62.7 cm??? 22 - 58 / 19 - 49 cm??? LV Ejection Fraction MOD BP 60.9 % >= 55 % LV Cardiac Index MOD BP 3218.9 cm???/min???m??? LV Diastolic Volume MOD 4C 180.6 cm??? LV Systolic Volume MOD 4C 61.6 cm??? LV Ejection Fraction MOD 4C 65.9 % LV Cardiac Index MOD 4C 3927.0 cm???/min???m??? LV Diastolic Length 4C 9.9 cm LV Systolic Length 4C 7.4 cm LV Diastolic Volume MOD 2C 134.5 cm??? LV Systolic Volume MOD 2C 59.5 cm??? LV Ejection Fraction MOD 2C 55.8 % LV Cardiac Index MOD 2C 2476.1 cm???/min???m??? LV Diastolic Length 2C 9.3 cm LV Systolic Length 2C 8.0 cm LA Volume 76.6 cm??? 18 - 58 / 22 - 52 cm??? LA Volume Index 29.7 cm???/m??? 16 - 28 cm???/m??? Ascending Aorta Diameter 3.6 cm DOPPLER AV Peak Velocity 192.9 cm/s AV Peak Gradient 14.9 mmHg AV Mean Velocity 137.3 cm/s AV Mean Gradient 8.4 mmHg AV Velocity Time Integral 37.4 cm LVOT Peak Velocity 130.2 cm/s LVOT Peak Gradient 6.8 mmHg LVOT Velocity Time Integral 26.8 cm LVOT Stroke Volume 130.9 cm??? LVOT Stroke Volume Index 53.8 ml/m??? LVOT Cardiac Index 4320.4 cm???/min???m??? AV Area Cont Eq vti 3.5 cm??? AV Area Cont Eq pk 3.3 cm??? MV Area PHT 4.1 cm??? Mitral E Point Velocity 98.0 cm/s Mitral A Point Velocity 66.9 cm/s Mitral E to A Ratio 1.5 MV Deceleration Time 183.0 ms TR Peak Velocity 254.4 cm/s TR Peak Gradient 25.9 mmHg Right Atrial Pressure 5.0 mmHg Pulmonary Artery Systolic Pressu 30.9 mmHg Right Ventricular Systolic Press 30.9 mmHg PV Peak Velocity 127.6 cm/s PV Peak Gradient 6.5 mmHg FINDINGS Left Ventricle Left ventricular ejection fraction is estimated at 55-60 %. Mildly increased left ventricular diastolic volume. Mildly increased left ventricular systolic volume. No obvious regional wall motion abnormalities. Left ventricular wall thickness normal. Right Ventricle Normal right ventricular size and function. Right ventricular systolic pressure within normal limits. Right Atrium Normal right atrial size. Left Atrium Mildly increased left atrial volume. Mildly increased left atrial area. Mitral Valve Structurally normal mitral valve. No evidence for mitral valve prolapse. No mitral stenosis. Trace mitral regurgitation. Aortic Valve Trileaflet aortic valve. No aortic valve stenosis or regurgitation. Tricuspid Valve Structurally normal tricuspid valve. No tricuspid stenosis. Mild tricuspid regurgitation. Pulmonic Valve Structurally normal pulmonic valve. No pulmonic stenosis. Trace pulmonic regurgitation. Pericardium No pericardial effusion. Aorta Normal size aortic root and proximal ascending aorta. CONCLUSIONS Diagnosis: Bilateral lower extremity edema, evaluate for CHF Mildly enlarged left ventricle with preserved systolic function Biatrial enlargement Previewed by: Dr. Abdiel Teran MD (Electronically Signed) Final Date: 01 January 2024 17:51
[2024-01-02 08:49] LABS: Basophils # (A) 0.06 X 10*3/uL (0.00-0.10); Basophils % (A) 0.4 %; Eosinophils # (A) 0.22 X 10*3/uL (0.04-0.35); Eosinophils % (A) 1.5 %; HCT 30.1 % (39.6-50.0); HGB 9.8 g/dL (13.0-17.0); Lymphocytes # (A) 1.94 X 10*3/uL (0.90-5.00); Lymphocytes % (A) 12.9 %; MCH 30.8 pg (27.0-32.0); MCHC 32.6 g/dL (32.0-37.0); MCV 94.7 FL (80.0-97.0); Mean Platelet Volume 11.2 FL (9.5-12.2); Monocytes # (A) 1.28 X 10*3/uL (0.20-1.00); Monocytes % (A) 8.5 %; NRBC Per 100 WBC 0 X 10*3/uL (0.00-0.01); Neutrophils # (A) 10.95 X 10*3/uL (1.80-7.70); Neutrophils % (A) 72.5 %; Platelet Count 189 X 10*3/uL (140-440); RBC 3.18 X 10*6/uL (4.40-5.60); RDW 14.6 % (11.5-14.5); WBC 15.09 X 10*3/uL (4.50-10.00)
[2024-01-02 10:35] LABS: ALT 150 U/L (10-49); AST 183 U/L (14-35); Albumin 2.7 g/dL (3.8-4.9); Albumin/Globulin Ratio 1.04 Ratio (1.60-3.17); Alkaline Phosphatase 77 U/L (41-126); BUN/Creat Ratio 15.62 Ratio (12.00-20.00); Blood Urea Nitrogen 12.5 mg/dL (9.0-27.0); Calcium 7.7 mg/dL (8.7-10.3); Carbon Dioxide 21.7 mmol/L (21.6-31.8); Chloride 107 mmol/L (96-109); Globulin 2.6 g/dL (1.6-3.3); Glucose 110 mg/dL (70-110); Potassium 4.1 mmol/L (3.5-5.5); Sodium 138 mmol/L (135-145); Total Bilirubin 0.4 mg/dL (0.3-1.2); Total Protein 5.3 g/dL (6.2-8.2)
--- NOTE | 2024-01-02 12:39 | P.PN ---
Subjective Progress Note Date: 01/02/24 This is a 63-year-old male patient with past medical history significant for hypothyroidism who presented to ER with a complaint of left lower extremity pain, swelling, redness, fatigue and further evaluation of recently diagnosed pneumonia. Patient stated that he was recently seen in the ER at a different facility, was diagnosed to have pneumonia and was evaluated for low blood pressure and required significant IV fluid resuscitation. Patient stated that he was sent home on antibiotics cefdinir and doxycycline then he started to notice left leg purplish discoloration and blister. Patient complained of chills, denied any fever, denied any sore throat, chest pain, palpitations, nausea vomiting diarrhea constipation abdominal pain dysuria urgency frequency. Patient complaining of left lower extremity pain, swelling. Patient complained of swelling of both legs, worse after patient received IV fluids at different hospital. Patient afebrile, heart rate 85, respiratory rate 20, blood pressure 111/58, saturating 97% on room air. WBCs 12.2 with absolute neutrophils 10.0, hemoglobin 10.9, platelet 211. INR 1.1. Sodium was 127 improved to 138. Potassium was low 3.2 now improved to 4.0. Normal BUN/creatinine at 0.9. Mildly elevated AST at 60, otherwise unremarkable LFTs. Troponin unremarkable. Chest x-ray showed focal medial posterior left midlung opacity. 12/31. Patient seen and examined. Blood work done this morning showed WBC 13.7, hematin 0.5, platelet count 217, sodium 138, potassium 3.9. Duplex ultrasound showed no evidence of DVT in lower extremities. Patient had low-grade fevers overnight Still has redness of left lower extremity 01/01. Patient seen and examined. Blood work done this morning showed WBC 15.09, hemoglobin 9.8, platelet count 189. 2D echo done showed mildly enlarged left ventricle with preserved systolic function, biatrial enlargement. Complaining of increasing redness of left upper extremity. REVIEW OF SYSTEMS: CONSTITUTIONAL: As mentioned above CARDIOVASCULAR: No chest pain, no palpitations, no syncope. PULMONARY: No shortness of breath, no cough, GASTROINTESTINAL: No diarrhea, no nausea, no vomiting, no abdominal pain. NEUROLOGICAL: No headaches, no weakness, PHYSICAL EXAMINATION: GENERAL: The patient is alert and oriented x3, not in any acute distress. Well developed, well nourished. HEENT: Pupils are round and equally reacting to light. EOMI. No scleral icterus. No conjunctival pallor. Normocephalic, atraumatic. No pharyngeal erythema. No thyromegaly. CARDIOVASCULAR: S1 and S2 present. No murmurs, rubs, or gallops. PULMONARY: Chest is clear to auscultation, no wheezing or crackles. ABDOMEN: Soft, nontender, nondistended, normoactive bowel sounds. No palpable organomegaly. MUSCULOSKELETAL: Left lower extremity erythema EXTREMITIES: No cyanosis, clubbing, or pedal edema. NEUROLOGICAL: Gross neurological examination did not reveal any focal deficits. SKIN: No rashes. Assessment and plan Left lower EXTR cellulitis Pneumonia Left leg blister Hyponatremia Hypokalemia Monitor vital signs Monitor CBC Monitor CMP Follow-up blood culture Follow-up on wound culture Continue IV clindamycin and cefazolin And Lasix 20 mg daily Continue Synthroid ID following Labs and medication were reviewed.. Continue same treatment. Continue with symptomatic treatment. Resume home medication. Monitor labs and vitals. DVT and GI prophylaxis. Further recommendations as per clinical course of the patient Dictation was produced using [employer] dictation software. please excuse any grammatical, word or spelling errors. Objective - Vital Signs Vital signs: Vital Signs Temp 98.0 F 01/02/24 07:35 Pulse 84 01/02/24 07:35 Resp 16 01/02/24 07:35 BP 95/63 01/02/24 07:35 Pulse Ox 96 01/02/24 07:35 FiO2 Intake & Output 01/01/24 01/02/24 01/02/24 18:59 06:59 18:59 Intake Total 950 Balance 950 Intake: Intake, IV Titration 950 Amount Clindamycin 900 mg In 50 Dextrose 5% in Water 50 ml @ 56 mls/hr IVPB Q8HR [facility] Rx#:[id number] Sodium Chloride 0.9% 1, 800 000 ml @ 75 mls/hr IV . [id number] [facility] Rx#:[id number] ceFAZolin 3 gm In Sodium 100 Chloride 0.9% 100 ml @ 200 mls/hr IVPB Q8HR [facility] Rx#:[id number] Other: Voiding Method Toilet # Voids 3 - Labs CBC & Chem 7: 01/02/24 05:18 01/02/24 05:18 Labs: Abnormal Lab Results - Last 24 Hours (Table) 01/02/24 Range/Units 05:18 WBC 15.09 H (4.50-10.00) X 10*3/uL RBC 3.18 L (4.40-5.60) X 10*6/uL Hgb 9.8 L (13.0-17.0) g/dL Hct 30.1 L (39.6-50.0) % RDW 14.6 H (11.5-14.5) % Immature Gran # 0.64 H (0.00-0.04) X 10*3/uL Neutrophils # 10.95 H (1.80-7.70) X 10*3/uL Monocytes # 1.28 H (0.20-1.00) X 10*3/uL Microbiology - Last 24 Hours (Table) 01/01/24 11:19 Wound Culture - Preliminary Leg - Left 12/30/23 15:16 Blood Culture - Preliminary Blood
--- NOTE | 2024-01-02 12:39 | P.PN ---
Subjective Progress Note Date: 01/02/24 Principal diagnosis: Reason for follow-up is left lower extremity cellulitis and leukocytosis Patient is a 63-year-old male with a past medical history significant for thyroid disorder presenting to the hospital for evaluation of left lower extremity pain swelling and redness that has been going on for about 2 days before presentation to the hospital. On today's evaluation that is 01/02/2024, Patient is afebrile this morning, he did have low-grade fever of 99.4 at 1:42 AM patient denies having any chest pain shortness of breath or cough, the patient is breathing comfortably and currently on room air, patient denies any abdominal pain no diarrhea no nausea no vo miting, has been complaining of some pressure to the left lower extremity noticed to have more redness to the left medial thigh area. Patient white count is up to 15.09, creatinine 0.8 cultures currently pending Objective - Vital Signs Vital signs: Vital Signs Temp 98.0 F 01/02/24 07:35 Pulse 84 01/02/24 07:35 Resp 16 01/02/24 07:35 BP 95/63 01/02/24 07:35 Pulse Ox 96 01/02/24 07:35 FiO2 Intake & Output 01/01/24 01/02/24 01/02/24 18:59 06:59 18:59 Intake Total 950 Balance 950 Intake: Intake, IV Titration 950 Amount Clindamycin 900 mg In 50 Dextrose 5% in Water 50 ml @ 56 mls/hr IVPB Q8HR [facility] Rx#:[id number] Sodium Chloride 0.9% 1, 800 000 ml @ 75 mls/hr IV . [id number] [facility] Rx#:[id number] ceFAZolin 3 gm In Sodium 100 Chloride 0.9% 100 ml @ 200 mls/hr IVPB Q8HR [facility] Rx#:[id number] Other: Voiding Method Toilet # Voids 3 - Exam GENERAL DESCRIPTION: An elderly male up in the chair in no distress RESPIRATORY SYSTEM: Unlabored breathing , decreased breath sounds at bases HEART: S1 S2 regular rate and rhythm , ABDOMEN: Soft , no tenderness EXTREMITIES: Left leg swelling redness slightly decreased did have some open blister, more redness to the left medial thigh - Labs CBC & Chem 7: 01/02/24 05:18 01/02/24 05:18 Labs: Abnormal Lab Results - Last 24 Hours (Table) 01/02/24 01/02/24 Range/Units 05:18 05:18 WBC 15.09 H (4.50-10.00) X 10*3/uL RBC 3.18 L (4.40-5.60) X 10*6/uL Hgb 9.8 L (13.0-17.0) g/dL Hct 30.1 L (39.6-50.0) % RDW 14.6 H (11.5-14.5) % Immature Gran # 0.64 H (0.00-0.04) X 10*3/uL Neutrophils # 10.95 H (1.80-7.70) X 10*3/uL Monocytes # 1.28 H (0.20-1.00) X 10*3/uL Calcium 7.7 L (8.7-10.3) mg/dL AST 183 H (14-35) U/L ALT 150 H (10-49) U/L Total Protein 5.3 L (6.2-8.2) g/dL Albumin 2.7 L (3.8-4.9) g/dL Albumin/Globulin Ratio 1.04 L (1.60-3.17) Ratio Microbiology - Last 24 Hours (Table) 01/01/24 11:19 Wound Culture - Preliminary Leg - Left 12/30/23 15:16 Blood Culture - Preliminary Blood Assessment and Plan (1) Left leg cellulitis Current Visit: Yes Status: Acute Code(s): L03.116 - CELLULITIS OF LEFT LOWER LIMB SNOMED Code(s): 97623461508872050 Plan: 1patient presented hospital with extensive left lower extremity cellulitis in this patient noted to have diffuse swelling redness blister formation likely streptococcal cellulitis failing outpatient oral antibiotic therapy patient is clinically not behaving as pneumonia with no significant cough respiratory symptoms not hypoxic or for supplemental oxygen. 2patient seem to have not well responded to the initial antibiotic regime did have more erythema to the left medial thigh white count slightly up we will switch antibiotic to cefepime and daptomycin and see clinical response discontinue cefazolin and clindamycin Dictation was produced using [employer] dictation software. please excuse any grammatical, word or spelling errors. Time with Patient: Less than 30
[2024-01-02] MEDS: CEFEPIME 2 GM in SODIUM CHLORIDE 0.9% 100 ML IVPB SCH (15:26)
[2024-01-03] MEDS: HYDROcodone/APAP 5-325MG 1 EACH TAB PO PRN (05:41)
[2024-01-03] MEDS: FUROSEMIDE 20 MG TAB PO SCH (08:36)
[2024-01-03 09:35] LABS: ALT 179 U/L (10-49); AST 181 U/L (14-35); Albumin 2.9 g/dL (3.8-4.9); Albumin/Globulin Ratio 0.94 Ratio (1.60-3.17); Alkaline Phosphatase 87 U/L (41-126); BUN/Creat Ratio 15.62 Ratio (12.00-20.00); Blood Urea Nitrogen 12.5 mg/dL (9.0-27.0); Calcium 8.3 mg/dL (8.7-10.3); Carbon Dioxide 22.2 mmol/L (21.6-31.8); Chloride 105 mmol/L (96-109); Globulin 3.1 g/dL (1.6-3.3); Glucose 123 mg/dL (70-110); Potassium 4.4 mmol/L (3.5-5.5); Sodium 137 mmol/L (135-145); Total Bilirubin 0.7 mg/dL (0.3-1.2)
[2024-01-03 11:16] LABS: Basophils # (M) 0.17 X 10*3/uL (0.00-0.10); Crenated RBC 2+; Eosinophils # (M) 0.34 X 10*3/uL (0.04-0.35); HCT 32.1 % (39.6-50.0); HGB 10.6 g/dL (13.0-17.0); Lymphocytes # (M) 2.89 X 10*3/uL (0.90-5.00); MCH 31.5 pg (27.0-32.0); MCV 95.3 FL (80.0-97.0); Mean Platelet Volume 11.5 FL (9.5-12.2); Myelocytes % 6 % (0-0); NRBC Per 100 WBC 0 X 10*3/uL (0.00-0.01); Neutrophils # (M) 10.89 X 10*3/uL (1.80-7.70); Neutrophils % (M) 64 %; Platelet Count 260 X 10*3/uL (140-440); RBC 3.37 X 10*6/uL (4.40-5.60); RDW 14.6 % (11.5-14.5); WBC 17.02 X 10*3/uL (4.50-10.00)
--- NOTE | 2024-01-03 13:29 | P.PN ---
Subjective Progress Note Date: 01/03/24 This is a 63-year-old male patient with past medical history significant for hypothyroidism who presented to ER with a complaint of left lower extremity pain, swelling, redness, fatigue and further evaluation of recently diagnosed pneumonia. Patient stated that he was recently seen in the ER at a different facility, was diagnosed to have pneumonia and was evaluated for low blood pressure and required significant IV fluid resuscitation. Patient stated that he was sent home on antibiotics cefdinir and doxycycline then he started to notice left leg purplish discoloration and blister. Patient complained of chills, denied any fever, denied any sore throat, chest pain, palpitations, nausea vomiting diarrhea constipation abdominal pain dysuria urgency frequency. Patient complaining of left lower extremity pain, swelling. Patient complained of swelling of both legs, worse after patient received IV fluids at different hospital. Patient afebrile, heart rate 85, respiratory rate 20, blood pressure 111/58, saturating 97% on room air. WBCs 12.2 with absolute neutrophils 10.0, hemoglobin 10.9, platelet 211. INR 1.1. Sodium was 127 improved to 138. Potassium was low 3.2 now improved to 4.0. Normal BUN/creatinine at 0.9. Mildly elevated AST at 60, otherwise unremarkable LFTs. Troponin unremarkable. Chest x-ray showed focal medial posterior left midlung opacity. 12/31. Patient seen and examined. Blood work done this morning showed WBC 13.7, hematin 0.5, platelet count 217, sodium 138, potassium 3.9. Duplex ultrasound showed no evidence of DVT in lower extremities. Patient had low-grade fevers overnight Still has redness of left lower extremity 01/01. Patient seen and examined. Blood work done this morning showed WBC 15.09, hemoglobin 9.8, platelet count 189. 2D echo done showed mildly enlarged left ventricle with preserved systolic function, biatrial enlargement. Complaining of increasing redness of left upper extremity. 01/02. Patient seen and examined. States he feels much better compared to yesterday, redness of left extremity has improved. Patient was ambulating in the hallways REVIEW OF SYSTEMS: CONSTITUTIONAL: As mentioned above CARDIOVASCULAR: No chest pain, no palpitations, no syncope. PULMONARY: No shortness of breath, no cough, GASTROINTESTINAL: No diarrhea, no nausea, no vomiting, no abdominal pain. NEUROLOGICAL: No headaches, no weakness, PHYSICAL EXAMINATION: GENERAL: The patient is alert and oriented x3, not in any acute distress. Well developed, well nourished. HEENT: Pupils are round and equally reacting to light. EOMI. No scleral icterus. No conjunctival pallor. Normocephalic, atraumatic. No pharyngeal erythema. No thyromegaly. CARDIOVASCULAR: S1 and S2 present. No murmurs, rubs, or gallops. PULMONARY: Chest is clear to auscultation, no wheezing or crackles. ABDOMEN: Soft, nontender, nondistended, normoactive bowel sounds. No palpable organomegaly. MUSCULOSKELETAL: Left lower extremity erythema EXTREMITIES: No cyanosis, clubbing, or pedal edema. NEUROLOGICAL: Gross neurological examination did not reveal any focal deficits. SKIN: No rashes. Assessment and plan Left lower EXTR cellulitis Pneumonia Left leg blister Hyponatremia Hypokalemia Transaminitis Monitor vital signs Monitor CBC Monitor CMP Follow-up blood culture Follow-up on wound culture Antibiotics changed to Dapto and cefepime Continue Lasix 20 mg daily Continue Synthroid ID following Labs and medication were reviewed.. Continue same treatment. Continue with symptomatic treatment. Resume home medication. Monitor labs and vitals. DVT and GI prophylaxis. Further recommendations as per clinical course of the patient Dictation was produced using [employer] dictation software. please excuse any grammatical, word or spelling errors. Objective - Vital Signs Vital signs: Vital Signs Temp 99.3 F 01/03/24 12:50 Pulse 92 01/03/24 12:50 Resp 18 01/03/24 12:50 BP 94/61 01/03/24 12:50 Pulse Ox 97 01/03/24 12:50 FiO2 Intake & Output 01/02/24 01/03/24 01/03/24 18:59 06:59 18:59 Intake Total 260 Balance 260 Intake: Intake, IV Titration 260 Amount Cefepime 2 gm In Sodium 100 Chloride 0.9% 100 ml @ 25 mls/hr IVPB Q8HR [facility] Rx# :[id number] Sodium Chloride 0.9% 1, 160 000 ml @ 75 mls/hr IV . [id number] [facility] Rx#:[id number] Other: Voiding Method Toilet # Voids 6 - Labs CBC & Chem 7: 01/03/24 05:26 01/03/24 05:26 Labs: Abnormal Lab Results - Last 24 Hours (Table) 01/03/24 01/03/24 Range/Units 05:26 05:26 WBC 17.02 H (4.50-10.00) X 10*3/uL RBC 3.37 L (4.40-5.60) X 10*6/uL Hgb 10.6 L (13.0-17.0) g/dL Hct 32.1 L (39.6-50.0) % RDW 14.6 H (11.5-14.5) % Neutrophils # (Manual) 10.89 H (1.80-7.70) X 10*3/uL Monocytes # (Manual) 1.70 H (0.20-1.00) X 10*3/uL Basophils # (Manual) 0.17 H (0.00-0.10) X 10*3/uL Crenated Cell 2+ A Glucose 123 H (70-110) mg/dL Calcium 8.3 L (8.7-10.3) mg/dL AST 181 H (14-35) U/L ALT 179 H (10-49) U/L Total Protein 6.0 L (6.2-8.2) g/dL Albumin 2.9 L (3.8-4.9) g/dL Albumin/Globulin Ratio 0.94 L (1.60-3.17) Ratio Microbiology - Last 24 Hours (Table) 01/01/24 11:19 Gram Stain - Final Leg - Left Wound Culture - Final 12/30/23 15:16 Blood Culture - Preliminary Blood
--- NOTE | 2024-01-03 14:11 | XR ---
EXAMINATION TYPE: XR chest 2V DATE OF EXAM: 01/03/2024 COMPARISON: 12/30/2023 HISTORY: 63-year-old male cough and sputum production TECHNIQUE: PA and lateral views FINDINGS: Heart normal size. Mild interstitial prominence and mild hyperinflation. There is a 6.6 cm posterior left midlung mass/focal opacity. No other consolidation or pleural effusion. IMPRESSION: COPD with focal opacity, possible 6.6 cm posterior left midlung mass/neoplasm. [facility], , 01/03/2024 2:09 PM
[2024-01-04 08:41] LABS: HCT 31.2 % (39.6-50.0); HGB 10.3 g/dL (13.0-17.0); MCH 30.8 pg (27.0-32.0); MCV 93.4 FL (80.0-97.0); Mean Platelet Volume 10.8 FL (9.5-12.2); NRBC Per 100 WBC 0 X 10*3/uL (0.00-0.01); Platelet Count 306 X 10*3/uL (140-440); RBC 3.34 X 10*6/uL (4.40-5.60); RDW 14.5 % (11.5-14.5); WBC 17.11 X 10*3/uL (4.50-10.00)
[2024-01-04 10:20] LABS: Basophils # (M) 0 X 10*3/uL (0.00-0.10); Eosinophils # (M) 0.68 X 10*3/uL (0.04-0.35); Lymphocytes # (M) 3.25 X 10*3/uL (0.90-5.00); Metamyelocytes % 4 % (0-0); Monocytes # (M) 1.71 X 10*3/uL (0.20-1.00); Neutrophils # (M) 10.78 X 10*3/uL (1.80-7.70); Neutrophils % (M) 63 %; RBC Morphology Normal (Normal)
[2024-01-04 10:31] LABS: ALT 219 U/L (10-49); AST 167 U/L (14-35); Albumin 2.8 g/dL (3.8-4.9); Albumin/Globulin Ratio 0.97 Ratio (1.60-3.17); Alkaline Phosphatase 80 U/L (41-126); BUN/Creat Ratio 19.71 Ratio (12.00-20.00); Blood Urea Nitrogen 13.8 mg/dL (9.0-27.0); Calcium 8.1 mg/dL (8.7-10.3); Carbon Dioxide 23.2 mmol/L (21.6-31.8); Chloride 103 mmol/L (96-109); Globulin 2.9 g/dL (1.6-3.3); Glucose 105 mg/dL (70-110); Potassium 4.4 mmol/L (3.5-5.5); Sodium 138 mmol/L (135-145); Total Bilirubin 0.6 mg/dL (0.3-1.2); Total Protein 5.7 g/dL (6.2-8.2)
--- NOTE | 2024-01-04 10:53 | CT ---
EXAMINATION TYPE: CT chest angio for PE DATE OF EXAM: 01/04/2024 COMPARISON: HISTORY: short of breath, mass? CT DLP: 653 mGycm Automated exposure control for dose reduction was used. CONTRAST: CT Chest for pulmonary embolism performed with with IV Contrast, patient injected with 100 ml mL of I sovue 370. FINDINGS: There is a 6.7 x 4.6 cm spiculated mass in the left lower lobe highly suspicious for neoplasm and bio psy is recommended. There are no filling defects within the pulmonary arterial circulation to suggest pulmonary embolus There are no other lung nodules. There is no pleural effusion or pneumothorax. The great vessels just normal and is no mediastinal, hilar or axillary adenopathy. Limited scanning through the upper abdomen reveals no gross abnormality No focal osseous lesions are seen. IMPRESSION: 1. No evidence of pulmonary embolus. 2. 6.7 x 4.6 cm spiculated mass left lower lobe highly suspicious for neoplasm and biopsy is recommen ded. [facility], Workstation: [email or web address] 01/04/2024 10:50 AM
--- NOTE | 2024-01-04 12:51 | P.PN ---
Subjective Progress Note Date: 01/04/24 This is a 63-year-old male patient with past medical history significant for hypothyroidism who presented to ER with a complaint of left lower extremity pain, swelling, redness, fatigue and further evaluation of recently diagnosed pneumonia. Patient stated that he was recently seen in the ER at a different facility, was diagnosed to have pneumonia and was evaluated for low blood pressure and required significant IV fluid resuscitation. Patient stated that he was sent home on antibiotics cefdinir and doxycycline then he started to notice left leg purplish discoloration and blister. Patient complained of chills, denied any fever, denied any sore throat, chest pain, palpitations, nausea vomiting diarrhea constipation abdominal pain dysuria urgency frequency. Patient complaining of left lower extremity pain, swelling. Patient complained of swelling of both legs, worse after patient received IV fluids at different hospital. Patient afebrile, heart rate 85, respiratory rate 20, blood pressure 111/58, saturating 97% on room air. WBCs 12.2 with absolute neutrophils 10.0, hemoglobin 10.9, platelet 211. INR 1.1. Sodium was 127 improved to 138. Potassium was low 3.2 now improved to 4.0. Normal BUN/creatinine at 0.9. Mildly elevated AST at 60, otherwise unremarkable LFTs. Troponin unremarkable. Chest x-ray showed focal medial posterior left midlung opacity. 12/31. Patient seen and examined. Blood work done this morning showed WBC 13.7, hematin 0.5, platelet count 217, sodium 138, potassium 3.9. Duplex ultrasound showed no evidence of DVT in lower extremities. Patient had low-grade fevers overnight Still has redness of left lower extremity 01/01. Patient seen and examined. Blood work done this morning showed WBC 15.09, hemoglobin 9.8, platelet count 189. 2D echo done showed mildly enlarged left ventricle with preserved systolic function, biatrial enlargement. Complaining of increasing redness of left upper extremity. 01/02. Patient seen and examined. States he feels much better compared to yesterday, redness of left extremity has improved. Patient was ambulating in the hallways 01/03. Patient seen and examined. Patient continues to have leukocytosis, chest x-ray done this morning showed COPD with focal opacity possible 6.6 cm posterior left midlung mass/neoplasm, CT chest ordered REVIEW OF SYSTEMS: CONSTITUTIONAL: As mentioned above CARDIOVASCULAR: No chest pain, no palpitations, no syncope. PULMONARY: No shortness of breath, no cough, GASTROINTESTINAL: No diarrhea, no nausea, no vomiting, no abdominal pain. NEUROLOGICAL: No headaches, no weakness, PHYSICAL EXAMINATION: GENERAL: The patient is alert and oriented x3, not in any acute distress. Well developed, well nourished. HEENT: Pupils are round and equally reacting to light. EOMI. No scleral icterus. No conjunctival pallor. Normocephalic, atraumatic. No pharyngeal erythema. No thyromegaly. CARDIOVASCULAR: S1 and S2 present. No murmurs, rubs, or gallops. PULMONARY: Chest is clear to auscultation, no wheezing or crackles. ABDOMEN: Soft, nontender, nondistended, normoactive bowel sounds. No palpable organomegaly. MUSCULOSKELETAL: Left lower extremity erythema EXTREMITIES: No cyanosis, clubbing, or pedal edema. NEUROLOGICAL: Gross neurological examination did not reveal any focal deficits. SKIN: No rashes. Assessment and plan Left lower EXTR cellulitis Pneumonia Left leg blister Hyponatremia Hypokalemia Transaminitis Monitor vital signs Monitor CBC Monitor CMP Follow-up blood culture Follow-up on wound culture Continue Dapto and cefepime CT chest PE protocol ordered Continue Lasix 20 mg daily Continue Synthroid ID following Pulmonology consult Labs and medication were reviewed.. Continue same treatment. Continue with symptomatic treatment. Resume home medication. Monitor labs and vitals. DVT and GI prophylaxis. Further recommendations as per clinical course of the patient Dictation was produced using [employer] dictation software. please excuse any grammatical, word or spelling errors. Objective - Vital Signs Vital signs: Vital Signs Temp 98.2 F 01/04/24 07:03 Pulse 97 01/04/24 07:03 Resp 18 01/04/24 07:03 BP 108/68 01/04/24 07:03 Pulse Ox 95 01/04/24 07:03 FiO2 Intake & Output 01/03/24 01/04/24 01/04/24 18:59 06:59 18:59 Other: Voiding Method Toilet # Voids 6 2 # Bowel Movements 1 - Labs CBC & Chem 7: 01/04/24 04:32 01/03/24 05:26 Labs: Abnormal Lab Results - Last 24 Hours (Table) 01/03/24 01/04/24 Range/Units 05:26 04:32 WBC 17.02 H 17.11 H (4.50-10.00) X 10*3/uL RBC 3.37 L 3.34 L (4.40-5.60) X 10*6/uL Hgb 10.6 L 10.3 L (13.0-17.0) g/dL Hct 32.1 L 31.2 L (39.6-50.0) % RDW 14.6 H (11.5-14.5) % Neutrophils # (Manual) 10.89 H (1.80-7.70) X 10*3/uL Monocytes # (Manual) 1.70 H (0.20-1.00) X 10*3/uL Basophils # (Manual) 0.17 H (0.00-0.10) X 10*3/uL Crenated Cell 2+ A Microbiology - Last 24 Hours (Table) 01/01/24 11:19 Gram Stain - Final Leg - Left Wound Culture - Final
--- NOTE | 2024-01-04 13:11 | P.CNPUL ---
History of Present Illness Consult date: 01/04/24 Requesting physician: Magno Thomas Reason for consult: cough, lung mass, abnormal CXR/CT Chief complaint: Abnormal chest x-ray and CAT scan. History of present illness: Pulmonary consult dated January 04, 2024. This is a 63-year-old male who presented to the emergency department on December 29. He came in with swelling of the left leg, with blistering. It was quite painful, with swelling and redness, in both lower extremities, left greater than right. Recently, the patient was diagnosed as having pneumonia, was complaining of being weak and fatigued. In addition, he has had this persi stent nonproductive cough, for some time. His states that he does have shortness of breath on exertion. I was consulted, because a chest x-ray revealed an infiltrate/mass, initially, in the left lung, but a CT scan suggest a 6.7 cm x 4.6 cm mass, in the left lower lobe. The patient did smoke for about 20 years. He quit a number of years back. 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 The patient has not been feeling well lately, including the weakness and fatigue as mentioned previously. The patient states that he is quite active, and he does kayaking, and flyfishing. It appears that his only major medical problem is hypothyroidism, a nd cataracts. He was on Synthroid, as an outpatient. It also appears that he was on antibiotics as an outpatient. Review of Systems REVIEW OF SYSTEMS: CONSTITUTIONAL: Fatigue and weakness. NEUROLOGIC: [ Negative.] HEENT: [ Negative.] CARDIAC: [Negative.] PULMONARY: Dry cough and shortness of breath on exertion. GI: [Negative.] : [Negative.] RHEUMATOLOGIC: [ Negative.] IMMUNOLOGIC: [ Negative.] ENDOCRINE: [Negative. ] DERMATOLOGIC: Swelling and redness of the left lower extremity. Past Medical History Past Medical History: Thyroid Disorder History of Any Multi-Drug Resistant Organisms: None Reported Additional Past Surgical History / Comment(s): cataracts Smoking Status: Never smoker Past Alcohol Use History: None Reported Past Drug Use History: None Reported Medications and Allergies Home Medications Medication Instructions Recorded Confirmed Type Cefdinir [Omnicef] 300 mg PO BID 12/30/23 12/30/23 History Doxycycline Hyclate 100 mg PO BID 12/30/23 12/30/23 History Glucosam/Artem-Msm1/C/Antoni/Bosw 1 tab PO DAILY 12/30/23 12/30/23 History [Glucosamine-Chondroitin Tablet] Levothyroxine Sodium [Synthroid] 100 mcg PO DAILY 12/30/23 12/30/23 History Multivit-Mins/Iron/Folic/Lycop 1 tab PO DAILY 12/30/23 12/30/23 History [Centrum Men's Tablet] Morton-3/Dha/Epa/Fish Oil [Fish Oil 1 cap PO DAILY 12/30/23 12/30/23 History 1,000 mg Softgel] Zinc Gluconate [Zinc] 50 mg PO DAILY 12/30/23 12/30/23 History Allergies Allergy/AdvReac Type Severity Reaction Status Date / Time No Known Allergies Allergy Verified 12/30/23 15:04 Physical Exam Osteopathic Statement: *. No significant issues noted on an osteopathic structural exam other than those noted in the History and Physical/Consult. Vitals: Vital Signs Temp Pulse Resp BP Pulse Ox 01/04/24 07:03 98.2 F 97 18 108/68 95 01/04/24 01:10 99.0 F 91 17 97/62 93 L 01/03/24 20:21 98.9 F 94 17 142/70 97 Intake and Output 01/03/24 01/04/24 01/04/24 22:59 06:59 14:59 Other: Voiding Method Toilet # Voids 6 2 # Bowel Movements 1 No acute distress, oriented 3. Currently on room air. No acute distress. Saturations are 95%. HEENT examination is grossly unremarkable. Mucous membranes are moist. No oral lesions. Neck supple. Full range of motion. No adenopathy thyromegaly or neck vein distention. Cardiovascular examination reveals regular rhythm rate. S1-S2 normal. No S3 or S4. No discernible murmur noted. Heart rate 97 bpm. Lungs reveal clear breath sounds. Breath sounds are equal bilaterally. No adventitious lung sounds including wheezes rhonchi or crackles. Abdomen soft bowel sounds are heard. No masses or tenderness. Extremities are intact. The left leg is wrapped. It is clearly edematous. No clubbing or cyanosis. Skin is without rash or lesion. Neurologic examination is brief but nonfocal. Results - Laboratory Findings CBC and BMP: 01/04/24 04:32 01/04/24 04:32 PT/INR, D-dimer PT 12.0 sec (10.0-12.5) 12/30/23 15:16 INR 1.1 (<1.2) 12/30/23 15:16 Abnormal lab findings: Abnormal Labs 12/30/23 12/30/23 12/30/23 15:16 15:16 15:16 WBC 12.2 H RBC 3.45 L Hgb 10.9 L Hct 33.1 L RDW Immature Gran # Neutrophils # 10.0 H Neutrophils # (Manual) Monocytes # Monocytes # (Manual) Eosinophils # Eosinophils # (Manual) Basophils # (Manual) Crenated Cell APTT 30.8 H Sodium 127 L Potassium 3.2 L Chloride 94 L Carbon Dioxide 20 L BUN/Creatinine Ratio Glucose 120 H Calcium 7.8 L Phosphorus 2.2 L AST 64 H ALT C-Reactive Protein 30.2 H Total Protein 6.2 L Albumin 3.2 L Albumin/Globulin Ratio 12/31/23 12/31/23 01/01/24 06:17 06:17 05:55 WBC 11.46 H 13.70 H RBC 3.50 L 3.37 L Hgb 11.0 L 10.5 L Hct 33.1 L 32.1 L RDW Immature Gran # 0.07 H 0.17 H Neutrophils # 9.04 H 10.10 H Neutrophils # (Manual) Monocytes # 1.21 H Monocytes # (Manual) Eosinophils # 0.01 L Eosinophils # (Manual) Basophils # (Manual) Crenated Cell APTT Sodium Potassium Chloride Carbon Dioxide BUN/Creatinine Ratio Glucose 115 H Calcium 7.9 L Phosphorus 2.0 L AST 60 H ALT C-Reactive Protein Total Protein 5.8 L Albumin 3.0 L Albumin/Globulin Ratio 1.07 L 01/01/24 01/02/24 01/02/24 05:55 05:18 05:18 WBC 15.09 H RBC 3.18 L Hgb 9.8 L Hct 30.1 L RDW 14.6 H Immature Gran # 0.64 H Neutrophils # 10.95 H Neutrophils # (Manual) Monocytes # 1.28 H Monocytes # (Manual) Eosinophils # Eosinophils # (Manual) Basophils # (Manual) Crenated Cell APTT Sodium Potassium Chloride Carbon Dioxide BUN/Creatinine Ratio 11.60 L Glucose 121 H Calcium 7.8 L 7.7 L Phosphorus AST 183 H ALT 150 H C-Reactive Protein Total Protein 5.3 L Albumin 2.7 L Albumin/Globulin Ratio 1.04 L 01/03/24 01/03/24 01/04/24 05:26 05:26 04:32 WBC 17.02 H 17.11 H RBC 3.37 L 3.34 L Hgb 10.6 L 10.3 L Hct 32.1 L 31.2 L RDW 14.6 H Immature Gran # Neutrophils # Neutrophils # (Manual) 10.89 H 10.78 H Monocytes # Monocytes # (Manual) 1.70 H 1.71 H Eosinophils # Eosinophils # (Manual) 0.68 H Basophils # (Manual) 0.17 H Crenated Cell 2+ A APTT Sodium Potassium Chloride Carbon Dioxide BUN/Creatinine Ratio Glucose 123 H Calcium 8.3 L Phosphorus AST 181 H ALT 179 H C-Reactive Protein Total Protein 6.0 L Albumin 2.9 L Albumin/Globulin Ratio 0.94 L 01/04/24 04:32 WBC RBC Hgb Hct RDW Immature Gran # Neutrophils # Neutrophils # (Manual) Monocytes # Monocytes # (Manual) Eosinophils # Eosinophils # (Manual) Basophils # (Manual) Crenated Cell APTT Sodium Potassium Chloride Carbon Dioxide BUN/Creatinine Ratio Glucose Calcium 8.1 L Phosphorus AST 167 H ALT 219 H C-Reactive Protein 14.50 H Total Protein 5.7 L Albumin 2.8 L Albumin/Globulin Ratio 0.97 L - Diagnostic Findings Chest x-ray: image reviewed CT scan - chest: image reviewed Assessment and Plan Assessment: Left lower extremity cellulitis, currently on daptomycin and cefepime as per infectious diseases. 6.7 x 4.6 cm spiculated mass, left lower lobe, suspicious for lung cancer. Prior history of 20 years of tobacco use. Shortness of breath on exertion, may relate to underlying COPD. History of hypothyroidism. Plan: Plan dated January 04, 2024. I had a conversation with the patient and patient's . The patient will need a follow-up in the office, with complete pulmonary function testing. In addition, the patient will need an outpatient PET scan. Currently, the patient is receiving cefepime and daptomycin for his left lower extremity cellulitis. Labs, x-rays, and all medications are reviewed. The lesion in the lung, is suspicious for primary bronchogenic carcinoma. Time with Patient: Greater than 30
--- NOTE | 2024-01-04 15:03 | P.PN ---
Subjective Progress Note Date: 01/03/24 Principal diagnosis: Reason for follow-up is left lower extremity cellulitis and leukocytosis Patient is a 63-year-old male with a past medical history significant for thyroid disorder presenting to the hospital for evaluation of left lower extremity pain swelling and redness that has been going on for about 2 days before presentation to the hospital. On today's evaluation that is 01/03/2024,the patient denies any fever or any chills, patient is breathing comfortably on room air, the patient denies chest pain shortness of breath he did have some cough and bring up some bloodstained sputum, patient denies abdominal pain, no nausea vomiting or diarrhea. Still c omplaining of some pressure to the left lower extremity. The patient white count is 17.02, creatinine 0.8 Objective - Vital Signs Vital signs: Vital Signs Temp 97.8 F 01/03/24 07:03 Pulse 82 01/03/24 07:03 Resp 17 01/03/24 07:03 BP 108/70 01/03/24 07:03 Pulse Ox 95 01/03/24 07:03 FiO2 Intake & Output 01/02/24 01/03/24 01/03/24 18:59 06:59 18:59 Intake Total 260 Balance 260 Intake: Intake, IV Titration 260 Amount Cefepime 2 gm In Sodium 100 Chloride 0.9% 100 ml @ 25 mls/hr IVPB Q8HR [facility] Rx# :[id number] Sodium Chloride 0.9% 1, 160 000 ml @ 75 mls/hr IV . [id number] [facility] Rx#:[id number] Other: Voiding Method Toilet # Voids 6 - Exam GENERAL DESCRIPTION: An elderly male up in the chair in no distress RESPIRATORY SYSTEM: Unlabored breathing , decreased breath sounds at bases HEART: S1 S2 regular rate and rhythm , ABDOMEN: Soft , no tenderness EXTREMITIES: Left leg currently dressed in Jacoby wrap no drainage - Labs CBC & Chem 7: 01/04/24 04:32 01/04/24 04:32 Labs: Abnormal Lab Results - Last 24 Hours (Table) 01/03/24 Range/Units 05:26 Glucose 123 H (70-110) mg/dL Calcium 8.3 L (8.7-10.3) mg/dL AST 181 H (14-35) U/L ALT 179 H (10-49) U/L Total Protein 6.0 L (6.2-8.2) g/dL Albumin 2.9 L (3.8-4.9) g/dL Albumin/Globulin Ratio 0.94 L (1.60-3.17) Ratio Microbiology - Last 24 Hours (Table) 01/01/24 11:19 Gram Stain - Final Leg - Left Wound Culture - Final 12/30/23 15:16 Blood Culture - Preliminary Blood Assessment and Plan (1) Left leg cellulitis Current Visit: Yes Status: Acute Code(s): L03.116 - CELLULITIS OF LEFT LOWER LIMB SNOMED Code(s): 67213389814681737 Plan: 1patient presented hospital with extensive left lower extremity cellulitis in this patient noted to have diffuse swelling redness blister formation likely streptococcal cellulitis failing outpatient oral antibiotic therapy patient is clinically not behaving as pneumonia with no significant cough respiratory symptoms not hypoxic or for supplemental oxygen. 2patient is afebrile left leg swelling redness slightly decreased continue with the daptomycin and cefepime there was started yesterday 3patient complaining of some respiratory symptom of cough bring up some sputum did have some abnormality on initial chest x-ray we will repeat a chest x-ray try to obtain a sputum and check a procalcitonin level Dictation was produced using [employer] dictation software. please excuse any grammatical, word or spelling errors. Time with Patient: Less than 30
--- NOTE | 2024-01-04 15:04 | P.PN ---
Subjective Progress Note Date: 01/04/24 Principal diagnosis: Reason for follow-up is left lower extremity cellulitis and leukocytosis Patient is a 63-year-old male with a past medical history significant for thyroid disorder presenting to the hospital for evaluation of left lower extremity pain swelling and redness that has been going on for about 2 days before presentation to the hospital. On today's evaluation that is 01/04/2024,the patient remains to be afebrile, patient is on room air not requiring supplemental oxygen and denies any shortness of breath no chest pain or cough.Patient denies having any nausea or vomiting, no abdominal pain and no diarrhea has been reported, the patient still complaining of pressure to the left lower extremity. The patient white count is 17.11 creatinine 0.7 Pro-Thiago 0.[address] a [address] of the chest concerning for left lower lobe mass suspicious for malignancy Objective - Vital Signs Vital signs: Vital Signs Temp 98.2 F 01/04/24 07:03 Pulse 97 01/04/24 07:03 Resp 18 01/04/24 07:03 BP 108/68 01/04/24 07:03 Pulse Ox 95 01/04/24 07:03 FiO2 Intake & Output 01/03/24 01/04/24 01/04/24 18:59 06:59 18:59 Other: Voiding Method Toilet # Voids 6 2 # Bowel Movements 1 - Exam GENERAL DESCRIPTION: An elderly male up in the chair in no distress RESPIRATORY SYSTEM: Unlabored breathing , decreased breath sounds at bases HEART: S1 S2 regular rate and rhythm , ABDOMEN: Soft , no tenderness EXTREMITIES: Left leg redness has improved still has significant swelling some clear drainage - Labs CBC & Chem 7: 01/04/24 04:32 01/04/24 04:32 Labs: Abnormal Lab Results - Last 24 Hours (Table) 01/04/24 01/04/24 Range/Units 04:32 04:32 WBC 17.11 H (4.50-10.00) X 10*3/uL RBC 3.34 L (4.40-5.60) X 10*6/uL Hgb 10.3 L (13.0-17.0) g/dL Hct 31.2 L (39.6-50.0) % Neutrophils # (Manual) 10.78 H (1.80-7.70) X 10*3/uL Monocytes # (Manual) 1.71 H (0.20-1.00) X 10*3/uL Eosinophils # (Manual) 0.68 H (0.04-0.35) X 10*3/uL Calcium 8.1 L (8.7-10.3) mg/dL AST 167 H (14-35) U/L ALT 219 H (10-49) U/L C-Reactive Protein 14.50 H (0.00-0.80) mg/dL Total Protein 5.7 L (6.2-8.2) g/dL Albumin 2.8 L (3.8-4.9) g/dL Albumin/Globulin Ratio 0.97 L (1.60-3.17) Ratio Microbiology - Last 24 Hours (Table) 01/01/24 11:19 Gram Stain - Final Leg - Left Wound Culture - Final Assessment and Plan (1) Left leg cellulitis Current Visit: Yes Status: Acute Code(s): L03.116 - CELLULITIS OF LEFT LOWER LIMB SNOMED Code(s): 02134505176242438 Plan: 1patient presented hospital with extensive left lower extremity cellulitis in this patient noted to have diffuse swelling redness blister formation likely streptococcal cellulitis failing outpatient oral antibiotic therapy patient is clinically not behaving as pneumonia with no significant cough respiratory symptoms not hypoxic or for supplemental oxygen. 2patient is afebrile left leg swelling redness slightly decreased continue with the daptomycin and cefepime discussed with admitting team regarding starting the patient on IV Lasix to get some of the swelling down 3patient did have some respiratory symptoms he did have a chest x-ray followed by CTA with left lower lobe mass concerning for malignancy pulmonary has been consulted clinically not behaving as pneumonia did have normal procalcitonin Dictation was produced using [employer] dictation software. please excuse any grammatical, word or spelling errors. Time with Patient: Less than 30
[2024-01-04 15:26] VITALS: BMI 39.0
[2024-01-04] MEDS: FUROSEMIDE 10 MG/ML 2 ML VIAL IV SCH (22:47)
--- NOTE | 2024-01-05 12:57 | P.PN ---
Subjective Progress Note Date: 01/05/24 This is a 63-year-old male patient with past medical history significant for hypothyroidism who presented to ER with a complaint of left lower extremity pain, swelling, redness, fatigue and further evaluation of recently diagnosed pneumonia. Patient stated that he was recently seen in the ER at a different facility, was diagnosed to have pneumonia and was evaluated for low blood pressure and required significant IV fluid resuscitation. Patient stated that he was sent home on antibiotics cefdinir and doxycycline then he started to notice left leg purplish discoloration and blister. Patient complained of chills, denied any fever, denied any sore throat, chest pain, palpitations, nausea vomiting diarrhea constipation abdominal pain dysuria urgency frequency. Patient complaining of left lower extremity pain, swelling. Patient complained of swelling of both legs, worse after patient received IV fluids at different hospital. Patient afebrile, heart rate 85, respiratory rate 20, blood pressure 111/58, saturating 97% on room air. WBCs 12.2 with absolute neutrophils 10.0, hemoglobin 10.9, platelet 211. INR 1.1. Sodium was 127 improved to 138. Potassium was low 3.2 now improved to 4.0. Normal BUN/creatinine at 0.9. Mildly elevated AST at 60, otherwise unremarkable LFTs. Troponin unremarkable. Chest x-ray showed focal medial posterior left midlung opacity. 12/31. Patient seen and examined. Blood work done this morning showed WBC 13.7, hematin 0.5, platelet count 217, sodium 138, potassium 3.9. Duplex ultrasound showed no evidence of DVT in lower extremities. Patient had low-grade fevers overnight Still has redness of left lower extremity 01/01. Patient seen and examined. Blood work done this morning showed WBC 15.09, hemoglobin 9.8, platelet count 189. 2D echo done showed mildly enlarged left ventricle with preserved systolic function, biatrial enlargement. Complaining of increasing redness of left upper extremity. 01/02. Patient seen and examined. States he feels much better compared to yesterday, redness of left extremity has improved. Patient was ambulating in the hallways 01/03. Patient seen and examined. Patient continues to have leukocytosis, chest x-ray done this morning showed COPD with focal opacity possible 6.6 cm posterior left midlung mass/neoplasm, CT chest ordered /. Patient seen and examined. CT chest done showed 6.7 x 4.6 spiculated mass left lower lobe suspicious for neoplasm. Order CT abdomen and pelvis. Still has redness of left lower extremity REVIEW OF SYSTEMS: CONSTITUTIONAL: As mentioned above CARDIOVASCULAR: No chest pain, no palpitations, no syncope. PULMONARY: No shortness of breath, no cough, GASTROINTESTINAL: No diarrhea, no nausea, no vomiting, no abdominal pain. NEUROLOGICAL: No headaches, no weakness, PHYSICAL EXAMINATION: GENERAL: The patient is alert and oriented x3, not in any acute distress. Well developed, well nourished. HEENT: Pupils are round and equally reacting to light. EOMI. No scleral icterus. No conjunctival pallor. Normocephalic, atraumatic. No pharyngeal erythema. No thyromegaly. CARDIOVASCULAR: S1 and S2 present. No murmurs, rubs, or gallops. PULMONARY: Chest is clear to auscultation, no wheezing or crackles. ABDOMEN: Soft, nontender, nondistended, normoactive bowel sounds. No palpable organomegaly. MUSCULOSKELETAL: Left lower extremity erythema EXTREMITIES: No cyanosis, clubbing, or pedal edema. NEUROLOGICAL: Gross neurological examination did not reveal any focal deficits. SKIN: No rashes. Assessment and plan Left lower EXTR cellulitis Pneumonia Left lower lobe lung mass suspicious for bronchogenic carcinoma Left leg blister Hyponatremia Hypokalemia Transaminitis Monitor vital signs Monitor CBC Monitor CMP Follow-up blood culture Follow-up on wound culture Continue Dapto and cefepime Continue Lasix 20 mg daily Continue Synthroid Ordered CT abdominal pelvis ID following Pulmonology following, recommend outpatient PFTs and PET scan Labs and medication were reviewed.. Continue same treatment. Continue with symptomatic treatment. Resume home medication. Monitor labs and vitals. DVT and GI prophylaxis. Further recommendations as per clinical course of the patient Dictation was produced using [employer] dictation software. please excuse any grammatical, word or spelling errors. Objective - Vital Signs Vital signs: Vital Signs Temp 98.8 F 01/05/24 06:50 Pulse 85 01/05/24 06:50 Resp 18 01/05/24 06:50 BP 108/66 01/05/24 06:50 Pulse Ox 96 01/05/24 06:50 FiO2 Intake & Output 01/04/24 01/05/24 01/05/24 18:59 06:59 18:59 Intake Total 100 Balance 100 Weight 127.006 kg Intake: Intake, IV Titration 100 Amount Cefepime 2 gm In Sodium 100 Chloride 0.9% 100 ml @ 25 mls/hr IVPB Q8HR [facility] Rx# :[id number] Other: # Voids 4 3 - Labs CBC & Chem 7: 01/04/24 04:32 01/04/24 04:32 Labs: Abnormal Lab Results - Last 24 Hours (Table) 01/04/24 01/04/24 Range/Units 04:32 04:32 Neutrophils # (Manual) 10.78 H (1.80-7.70) X 10*3/uL Monocytes # (Manual) 1.71 H (0.20-1.00) X 10*3/uL Eosinophils # (Manual) 0.68 H (0.04-0.35) X 10*3/uL Calcium 8.1 L (8.7-10.3) mg/dL AST 167 H (14-35) U/L ALT 219 H (10-49) U/L C-Reactive Protein 14.50 H (0.00-0.80) mg/dL Total Protein 5.7 L (6.2-8.2) g/dL Albumin 2.8 L (3.8-4.9) g/dL Albumin/Globulin Ratio 0.97 L (1.60-3.17) Ratio Microbiology - Last 24 Hours (Table) 12/30/23 15:16 Blood Culture - Final Blood
--- NOTE | 2024-01-05 13:17 | P.PN ---
Subjective Progress Note Date: 01/05/24 Principal diagnosis: Reason for follow-up is left lower extremity cellulitis and leukocytosis Patient is a 63-year-old male with a past medical history significant for thyroid disorder presenting to the hospital for evaluation of left lower extremity pain swelling and redness that has been going on for about 2 days before presentation to the hospital. On today's evaluation that is 01/05/2024, the patient continues to be afebrile, the patient is on room air and breathing comfortably, the Pt denies having any chest pain or cough, the patient denies having any abdominal pain no vomiting or any diarrhea overall pain is down to the left leg slightly decreased in int ensity. Labs are pending from this morning Objective - Vital Signs Vital signs: Vital Signs Temp 98.8 F 01/05/24 06:50 Pulse 85 01/05/24 06:50 Resp 18 01/05/24 06:50 BP 108/66 01/05/24 06:50 Pulse Ox 96 01/05/24 06:50 FiO2 Intake & Output 01/04/24 01/05/24 01/05/24 18:59 06:59 18:59 Intake Total 100 Balance 100 Weight 127.006 kg Intake: Intake, IV Titration 100 Amount Cefepime 2 gm In Sodium 100 Chloride 0.9% 100 ml @ 25 mls/hr IVPB Q8HR [facility] Rx# :[id number] Other: # Voids 4 3 - Exam GENERAL DESCRIPTION: An elderly male up in the chair in no distress RESPIRATORY SYSTEM: Unlabored breathing , decreased breath sounds at bases HEART: S1 S2 regular rate and rhythm , ABDOMEN: Soft , no tenderness EXTREMITIES: Left leg swelling redness slightly decreased - Labs CBC & Chem 7: 01/04/24 04:32 01/04/24 04:32 Labs: Microbiology - Last 24 Hours (Table) 12/30/23 15:16 Blood Culture - Final Blood Assessment and Plan (1) Left leg cellulitis Current Visit: Yes Status: Acute Code(s): L03.116 - CELLULITIS OF LEFT LOWER LIMB SNOMED Code(s): 18365829149630664 Plan: 1patient presented hospital with extensive left lower extremity cellulitis in this patient noted to have diffuse swelling redness blister formation likely streptococcal cellulitis failing outpatient oral antibiotic therapy patient is clinically not behaving as pneumonia with no significant cough respiratory symptoms not hypoxic or for supplemental oxygen. 2patient is afebrile left leg swelling redness slightly decreased continue with the daptomycin and cefepime along with diuretics to get some of the swelling down in Jacoby wrap and will reevaluate patient tomorrow question concern were answered Dictation was produced using [employer] dictation software. please excuse any gra mmatical, word or spelling errors. Time with Patient: Less than 30
--- NOTE | 2024-01-05 14:27 | P.PN ---
Subjective Progress Note Date: 01/05/24 Principal diagnosis: Lung mass. Pulmonary consult dated January 04, 2024. This is a 63-year-old male who presented to the emergency department on December 29. He came in with swelling of the left leg, with blistering. It was quite painful, with swelling and redness, in both lower extremities, left greater than right. Recently, the patient was diagnosed as having pneumonia, was complaining of being weak and fatigued. In addition, he has had this persistent nonproductive cough, for some time. His states that he does have shortness of breath on exertion. I was consulted, because a chest x-ray revealed an infiltrate/mass, initially, in the left lung, but a CT scan suggest a 6.7 cm x 4.6 cm mass, in the left lower lobe. The patient did smoke for about 20 years. He quit a number of years back. 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 The patient has not been feeling well lately, including the weakness and fatigue as mentioned previously. The patient states that he is quite active, and he does kayaking, and flyfishing. It appears that his only major medical problem is hypothyroidism, and cataracts. He was on Synthroid, as an outpatient. It also appears that he was on antibiotics as an outpatient. Progress note dated January 05, 2024. 63-year-old male seen yesterday in consultation. He had a chest x-ray and a CT scan which suggested a 6.7 x 4.6 cm mass in the left lower lobe. The patient w as a smoker in the past. Does not smoke currently. I did mention to him that he will need some pulmonary function testing, PET scan, and eventually a biopsy. Currently, he is being admitted for cellulitis of the left lower extremity. Current laboratory data is not noted. The patient's last middle lab work was done yesterday, January 03. Objective - Vital Signs Vital signs: Vital Signs Temp 98.8 F 01/05/24 06:50 Pulse 85 01/05/24 06:50 Resp 18 01/05/24 06:50 BP 108/66 01/05/24 06:50 Pulse Ox 96 01/05/24 06:50 FiO2 Intake & Output 01/04/24 01/05/24 01/05/24 18:59 06:59 18:59 Intake Total 100 Balance 100 Weight 127.006 kg Intake: Intake, IV Titration 100 Amount Cefepime 2 gm In Sodium 100 Chloride 0.9% 100 ml @ 25 mls/hr IVPB Q8HR [facility] Rx# :[id number] Other: # Voids 4 3 - Exam No acute distress, oriented 3. Currently on room air. No acute distress. Saturations are 97 %. HEENT examination is grossly unremarkable. Mucous membranes are moist. No oral lesions. Neck supple. Full range of motion. No adenopathy thyromegaly or neck vein distention. Cardiovascular examination reveals regular rhythm rate. S1-S2 normal. No S3 or S4. No discernible murmur noted. Heart rate is 85 bpm. Lungs reveal clear breath sounds. Breath sounds are equal bilaterally. No adventitious lung sounds including wheezes rhonchi or crackles. Abdomen soft bowel sounds are heard. No masses or tenderness. Extremities are intact. The left leg is wrapped. It is clearly edematous. No clubbing or cyanosis. Skin is without rash or lesion. Neurologic examination is brief but nonfocal. - Labs CBC & Chem 7: 01/04/24 04:32 01/04/24 04:32 Labs: Microbiology - Last 24 Hours (Table) 12/30/23 15:16 Blood Culture - Final Blood Assessment and Plan Assessment: Left lower extremity cellulitis, currently on daptomycin and cefepime as per infectious diseases. 6.7 x 4.6 cm spiculated mass, left lower lobe, suspicious for lung cancer. Prior history of 20 years of tobacco use. Shortness of breath on exertion, may relate to underlying COPD. History of hypothyroidism. Plan: Plan dated January 04, 2024. I had a conversation with the patient and patient's . The patient will need a follow-up in the office, with complete pulmonary function testing. In addition, the patient will need an outpatient PET scan. Currently, the patient is receiving cefepime and daptomycin for his left lower extremity cellulitis. Labs, x-rays, and all medications are reviewed. The lesion in the lung, is suspicious for primary bronchogenic carcinoma. Plan dated January 13, 2024. The patient is seen today. We discussed the plan. The plan is for him to continue antibiotics, for his left lower extremity cellulitis. As an outpatient he will visit with me in the office, he will have a complete pulmonary function test and a PET scan as an outpatient. Additional recommendations and suggestions are forthcoming. He is very comfortable with this plan. Time with Patient: Less than 30
--- NOTE | 2024-01-05 14:33 | US ---
EXAMINATION TYPE: US abdomen limited DATE OF EXAM: 01/05/2024 COMPARISON: NONE CLINICAL INDICATION: Male, 63 years old with history of Elevated LFTs; Abnormal labs. TECHNIQUE: Multiple sonographic images of the right upper quadrant are obtained. FINDINGS: EXAM MEASUREMENTS: Liver Length: 17.3 cm Gallbladder Wall: 0.1 cm CBD: 0.5 cm Right Kidney: 11.0 x 5.2 x 6.7 cm Pancreas: Tail obscured by overlying bowel gas. Echogenic in appearance. Body - 2.0 cm. Trace flu id seen near pancreatic head Liver: Increased attenuation, decreased visualization of vessels suggestive of fatty infiltrate. Ec hogenic and heterogenous. Gallbladder: No stones or wall thickening seen. Evidence for sonographic Shetty's sign: neg CBD: wnl, limited visualization Right Kidney: No hydronephrosis or masses seen IMPRESSION: 1. Mild hepatomegaly and echotexture consistent with fatty infiltration. No focal liver mass. 2. Normal gallbladder and biliary tree 3. Mildly echogenic bilaterally head of the pancreas. The tail is obscured by bowel gas. [facility], , 01/05/2024 2:30 PM
[2024-01-05 14:54] LABS: African American GFR (CKD) >90 (>60 ml/min/1.73 sqM); Blood Urea Nitrogen 22 mg/dL (9-20); Non-African American GFR(CKD) >90 (>60 ml/min/1.73 sqM)
--- NOTE | 2024-01-05 17:12 | CT ---
EXAMINATION TYPE: CT abdomen pelvis w con DATE OF EXAM: 01/05/2024 COMPARISON: None INDICATION: Elevated LFTs, lung mass DLP: 2391.5 mGycm, Automated exposure control for dose reduction was used. CONTRAST: 100 ml mL of Isovue 300. Study performed without Oral Contrast TECHNIQUE: Axial images were obtained from above the diaphragm to the pubic rami in the axial plane a t 5 mm thick sections. Reconstructed images are reviewed on the computer in the coronal plane. FINDINGS: Limited CT sections are obtained the lung bases. The lung bases are clear. CT ABDOMEN: Liver: Normal Spleen: Normal Pancreas: Normal Adrenal glands: The adrenal glands are normal. Gallbladder: Normal Kidneys: No masses are evident. No hydronephrosis is present. No cysts are present. No suspicious changes on delayed images. Aorta: Vascular calcification is within the aorta. Inferior vena cava: Normal. CT PELVIS: Loops of bowel within the abdomen and pelvis are normal. Fecal debris is seen within colon. Study is without oral contrast limits bowel evaluation. Appendix: Normal as visualized. Urinary bladder: Decompressed limiting evaluation. Genitourinary structures: Prostate is normal Osseous structures: No suspicious lytic or sclerotic lesions. Facet degenerative changes are in the l ower lumbar spine. IMPRESSION: 1. No suspicious acute changes. Follow-up can be performed as clinically indicated. [facility], , 01/05/2024 5:10 PM
--- NOTE | 2024-01-06 11:09 | P.PN ---
Subjective Progress Note Date: 01/06/24 Principal diagnosis: Lung mass. Pulmonary consult dated January 04, 2024. This is a 63-year-old male who presented to the emergency department on December 29. He came in with swelling of the left leg, with blistering. It was quite painful, with swelling and redness, in both lower extremities, left greater than right. Recently, the patient was diagnosed as having pneumonia, was complaining of being weak and fatigued. In addition, he has had this persistent nonproductive cough, for some time. His states that he does have shortness of breath on exertion. I was consulted, because a chest x-ray revealed an infiltrate/mass, initially, in the left lung, but a CT scan suggest a 6.7 cm x 4.6 cm mass, in the left lower lobe. The patient did smoke for about 20 years. He quit a number of years back. 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 The patient has not been feeling well lately, including the weakness and fatigue as mentioned previously. The patient states that he is quite active, and he does kayaking, and flyfishing. It appears that his only major medical problem is hypothyroidism, and cataracts. He was on Synthroid, as an outpatient. It also appears that he was on antibiotics as an outpatient. Progress note dated January 05, 2024. 63-year-old male seen yesterday in consultation. He had a chest x-ray and a CT scan which suggested a 6.7 x 4.6 cm mass in the left lower lobe. The patient w as a smoker in the past. Does not smoke currently. I did mention to him that he will need some pulmonary function testing, PET scan, and eventually a biopsy. Currently, he is being admitted for cellulitis of the left lower extremity. Current laboratory data is not noted. The patient's last middle lab work was done yesterday, January 03. Progress note dated January 06, 2024. 63-year-old male seen in room 454. The patient is on room air. He continues on cefepime and daptomycin. He is getting saline at 20 cc an hour. The patient was actually admitted for cellulitis of the left lower extremity. CT scan revealed a 6.7 x 4.6 cm mass in the left lower lobe. The plan is to bring the patient back to the office for complete pulmonary function testing, and outpatient PET scan. No new labs today. Blood and wound cultures are negative thus far. Objective - Vital Signs Vital signs: Vital Signs Temp 98.4 F 01/06/24 07:41 Pulse 87 01/06/24 07:41 Resp 17 01/06/24 07:41 BP 132/68 01/06/24 07:41 Pulse Ox 97 01/06/24 07:41 FiO2 Intake & Output 01/05/24 01/06/24 01/06/24 18:59 06:59 18:59 Other: # Voids 5 1 # Bowel Movements 2 - Exam No acute distress, oriented 3. Currently on room air. No acute distress. HEENT examination is grossly unremarkable. Mucous membranes are moist. No oral lesions. Neck supple. Full range of motion. No adenopathy thyromegaly or neck vein distention. Cardiovascular examination reveals regular rhythm rate. S1-S2 normal. No S3 or S4. No discernible murmur noted. Lungs reveal clear breath sounds. Breath sounds are equal bilaterally. No adventitious lung sounds including wheezes rhonchi or crackles. Abdomen soft bowel sounds are heard. No masses or tenderness. Extremities are intact. The left leg is wrapped. It is clearly edematous. No clubbing or cyanosis. Skin is without rash or lesion. Neurologic examination is brief but nonfocal. - Labs CBC & Chem 7: 01/04/24 04:32 01/05/24 14:11 Labs: Abnormal Lab Results - Last 24 Hours (Table) 01/05/24 Range/Units 14:11 BUN 22 H (9-20) mg/dL Assessment and Plan Assessment: Left lower extremity cellulitis, currently on daptomycin and cefepime as per inf ectious diseases. 6.7 x 4.6 cm spiculated mass, left lower lobe, suspicious for lung cancer. Prior history of 20 years of tobacco use. Shortness of breath on exertion, may relate to underlying COPD. History of hypothyroidism. Plan: Plan dated January 04, 2024. I had a conversation with the patient and patient's . The patient will need a follow-up in the office, with complete pulmonary function testing. In addition, the patient will need an outpatient PET scan. Currently, the patient is receiving cefepime and daptomycin for his left lower extremity cellulitis. Labs, x-rays, and all medications are reviewed. The lesion in the lung, is suspicious for primary bronchogenic carcinoma. Plan dated January 13, 2024. The patient is seen today. We discussed the plan. The plan is for him to continue antibiotics, for his left lower extremity cellulitis. As an outpatient he will visit with me in the office, he will have a complete pulmonary function test and a PET scan as an outpatient. Additional recommendations and suggestions are forthcoming. He is very comfortable with this plan. Plan dated January 06, 2024. The patient is stable from the pulmonary standpoint. The patient will need an outpatient PET scan, and pulmonary function testing. Additional recommendations and suggestions are forthcoming. His CT scan of the abdomen, did not reveal any significant pathology. We will continue to follow. Prognosis is guarded. No additional recommendations are made. All questions have been answered. Time with Patient: Less than 30
--- NOTE | 2024-01-06 13:47 | P.PN ---
Subjective Progress Note Date: 01/06/24 This is a 63-year-old male patient with past medical history significant for hypothyroidism who presented to ER with a complaint of left lower extremity pain, swelling, redness, fatigue and further evaluation of recently diagnosed pneumonia. Patient stated that he was recently seen in the ER at a different facility, was diagnosed to have pneumonia and was evaluated for low blood pressure and required significant IV fluid resuscitation. Patient stated that he was sent home on antibiotics cefdinir and doxycycline then he started to notice left leg purplish discoloration and blister. Patient complained of chills, denied any fever, denied any sore throat, chest pain, palpitations, nausea vomiting diarrhea constipation abdominal pain dysuria urgency frequency. Patient complaining of left lower extremity pain, swelling. Patient complained of swelling of both legs, worse after patient received IV fluids at different hospital. Patient afebrile, heart rate 85, respiratory rate 20, blood pressure 111/58, saturating 97% on room air. WBCs 12.2 with absolute neutrophils 10.0, hemoglobin 10.9, platelet 211. INR 1.1. Sodium was 127 improved to 138. Potassium was low 3.2 now improved to 4.0. Normal BUN/creatinine at 0.9. Mildly elevated AST at 60, otherwise unremarkable LFTs. Troponin unremarkable. Chest x-ray showed focal medial posterior left midlung opacity. 12/31. Patient seen and examined. Blood work done this morning showed WBC 13.7, hematin 0.5, platelet count 217, sodium 138, potassium 3.9. Duplex ultrasound showed no evidence of DVT in lower extremities. Patient had low-grade fevers overnight Still has redness of left lower extremity 01/01. Patient seen and examined. Blood work done this morning showed WBC 15.09, hemoglobin 9.8, platelet count 189. 2D echo done showed mildly enlarged left ventricle with preserved systolic function, biatrial enlargement. Complaining of increasing redness of left upper extremity. 01/02. Patient seen and examined. States he feels much better compared to yesterday, redness of left extremity has improved. Patient was ambulating in the hallways 01/03. Patient seen and examined. Patient continues to have leukocytosis, chest x-ray done this morning showed COPD with focal opacity possible 6.6 cm posterior left midlung mass/neoplasm, CT chest ordered /. Patient seen and examined. CT chest done showed 6.7 x 4.6 spiculated mass left lower lobe suspicious for neoplasm. Order CT abdomen and pelvis. Still has redness of left lower extremity. Pulmonology recommended outpatient PFTs and PET scan 01/05. Patient seen and examined. CT abdomen done did not show any acute intra- abdominal pathology. REVIEW OF SYSTEMS: CONSTITUTIONAL: As mentioned above CARDIOVASCULAR: No chest pain, no palpitations, no syncope. PULMONARY: No shortness of breath, no cough, GASTROINTESTINAL: No diarrhea, no nausea, no vomiting, no abdominal pain. NEUROLOGICAL: No headaches, no weakness, PHYSICAL EXAMINATION: GENERAL: The patient is alert and oriented x3, not in any acute distress. Well developed, well nourished. HEENT: Pupils are round and equally reacting to light. EOMI. No scleral icterus. No conjunctival pallor. Normocephalic, atraumatic. No pharyngeal erythema. No thyromegaly. CARDIOVASCULAR: S1 and S2 present. No murmurs, rubs, or gallops. PULMONARY: Chest is clear to auscultation, no wheezing or crackles. ABDOMEN: Soft, nontender, nondistended, normoactive bowel sounds. No palpable organomegaly. MUSCULOSKELETAL: Left lower extremity erythema EXTREMITIES: No cyanosis, clubbing, or pedal edema. NEUROLOGICAL: Gross neurological examination did not reveal any focal deficits. SKIN: No rashes. Assessment and plan Left lower EXTR cellulitis Pneumonia Left lower lobe lung mass suspicious for bronchogenic carcinoma Left leg blister Hyponatremia Hypokalemia Transaminitis Monitor vital signs Monitor CBC Monitor CMP Follow-up blood culture Follow-up on wound culture Continue Dapto and cefepime Continue Lasix 20 mg daily Continue Synthroid ID following Pulmonology following, recommend outpatient PFTs and PET scan Labs and medication were reviewed.. Continue same treatment. Continue with symptomatic treatment. Resume home medication. Monitor labs and vitals. DVT and GI prophylaxis. Further recommendations as per clinical course of the patient Dictation was produced using [email or web address] dictation software. please excuse any grammatical, word or spelling errors. Objective - Vital Signs Vital signs: Vital Signs Temp 98.4 F 01/06/24 07:41 Pulse 87 01/06/24 07:41 Resp 17 01/06/24 07:41 BP 132/68 01/06/24 07:41 Pulse Ox 97 01/06/24 07:41 FiO2 Intake & Output 01/05/24 01/06/24 01/06/24 18:59 06:59 18:59 Other: # Voids 5 1 # Bowel Movements 2 - Labs CBC & Chem 7: 01/04/24 04:32 01/05/24 14:11 Labs: Abnormal Lab Results - Last 24 Hours (Table) 01/05/24 Range/Units 14:11 BUN 22 H (9-20) mg/dL
--- NOTE | 2024-01-06 15:37 | P.PN ---
Subjective Progress Note Date: 01/06/24 Principal diagnosis: Reason for follow-up is left lower extremity cellulitis and leukocytosis Patient is a 63-year-old male with a past medical history significant for thyroid disorder presenting to the hospital for evaluation of left lower extremity pain swelling and redness that has been going on for about 2 days before presentation to the hospital. On today's evaluation that is 01/06/2024, Patient is afebrile patient is currently on room air and denies having any shortness of breath, the patient denies any chest pain or cough, the patient denies any nausea vomiting did not have any abdominal pain and no diarrhea left leg swelling and pain has slightly decreased intensity. No new labs were obtained today Objective - Vital Signs Vital signs: Vital Signs Temp 98.4 F 01/06/24 07:41 Pulse 87 01/06/24 07:41 Resp 17 01/06/24 07:41 BP 132/68 01/06/24 07:41 Pulse Ox 97 01/06/24 07:41 FiO2 Intake & Output 01/05/24 01/06/24 01/06/24 18:59 06:59 18:59 Other: # Voids 5 1 # Bowel Movements 2 - Exam GENERAL DESCRIPTION: An elderly male up in the chair in no distress RESPIRATORY SYSTEM: Unlabored breathing , decreased breath sounds at bases HEART: S1 S2 regular rate and rhythm , ABDOMEN: Soft , no tenderness EXTREMITIES: Left leg swelling redness slightly decreased, no drainage on the dressing - Labs CBC & Chem 7: 01/04/24 04:32 01/05/24 14:11 Labs: Abnormal Lab Results - Last 24 Hours (Table) 01/05/24 Range/Units 14:11 BUN 22 H (9-20) mg/dL Assessment and Plan (1) Left leg cellulitis Current Visit: Yes Status: Acute Code(s): L03.116 - CELLULITIS OF LEFT LOWER LIMB SNOMED Code(s): 48803538539440671 Plan: 1patient presented hospital with extensive left lower extremity cellulitis in this patient noted to have diffuse swelling redness blister formation likely streptococcal cellulitis failing outpatient oral antibiotic therapy 2patient is afebrile left leg swelling redness slightly decreased, we will repeat a CBC with a.m. lab continue with the cefepime however discontinue daptomycin and continue with the diuretics and compression question concern answered Dictation was produced using dragon dictation software. please excuse any gra mmatical, word or spelling errors. Time with Patient: Less than 30
[2024-01-07 10:02] LABS: Basophils # (A) 0.09 X 10*3/uL (0.00-0.10); Basophils % (A) 0.6 %; Eosinophils # (A) 0.35 X 10*3/uL (0.04-0.35); Eosinophils % (A) 2.1 %; HCT 32.6 % (39.6-50.0); HGB 10.6 g/dL (13.0-17.0); Lymphocytes # (A) 1.78 X 10*3/uL (0.90-5.00); Lymphocytes % (A) 10.9 %; MCH 30.9 pg (27.0-32.0); MCHC 32.5 g/dL (32.0-37.0); Mean Platelet Volume 10.1 FL (9.5-12.2); Monocytes # (A) 1.21 X 10*3/uL (0.20-1.00); Monocytes % (A) 7.4 %; NRBC Per 100 WBC 0 X 10*3/uL (0.00-0.01); Neutrophils # (A) 12.43 X 10*3/uL (1.80-7.70); Neutrophils % (A) 76.3 %; Platelet Count 406 X 10*3/uL (140-440); RBC 3.43 X 10*6/uL (4.40-5.60); RDW 14.2 % (11.5-14.5)
[2024-01-07 10:05] LABS: ALT 246 U/L (10-49); AST 142 U/L (14-35); Albumin/Globulin Ratio 0.91 Ratio (1.60-3.17); Alkaline Phosphatase 76 U/L (41-126); BUN/Creat Ratio 28.29 Ratio (12.00-20.00); Blood Urea Nitrogen 19.8 mg/dL (9.0-27.0); Carbon Dioxide 24.4 mmol/L (21.6-31.8); Chloride 102 mmol/L (96-109); Globulin 3.3 g/dL (1.6-3.3); Glucose 112 mg/dL (70-110); Potassium 4.5 mmol/L (3.5-5.5); Sodium 138 mmol/L (135-145); Total Bilirubin 0.4 mg/dL (0.3-1.2); Total Protein 6.3 g/dL (6.2-8.2)
--- NOTE | 2024-01-07 12:17 | P.PN ---
Subjective Progress Note Date: 01/07/24 Principal diagnosis: Lung mass. Pulmonary consult dated January 04, 2024. This is a 63-year-old male who presented to the emergency department on December 29. He came in with swelling of the left leg, with blistering. It was quite painful, with swelling and redness, in both lower extremities, left greater than right. Recently, the patient was diagnosed as having pneumonia, was complaining of being weak and fatigued. In addition, he has had this persistent nonproductive cough, for some time. His states that he does have shortness of breath on exertion. I was consulted, because a chest x-ray revealed an infiltrate/mass, initially, in the left lung, but a CT scan suggest a 6.7 cm x 4.6 cm mass, in the left lower lobe. The patient did smoke for about 20 years. He quit a number of years back. 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 The patient has not been feeling well lately, including the weakness and fatigue as mentioned previously. The patient states that he is quite active, and he does kayaking, and flyfishing. It appears that his only major medical problem is hypothyroidism, and cataracts. He was on Synthroid, as an outpatient. It also appears that he was on antibiotics as an outpatient. Progress note dated January 05, 2024. 63-year-old male seen yesterday in consultation. He had a chest x-ray and a CT scan which suggested a 6.7 x 4.6 cm mass in the left lower lobe. The patient w as a smoker in the past. Does not smoke currently. I did mention to him that he will need some pulmonary function testing, PET scan, and eventually a biopsy. Currently, he is being admitted for cellulitis of the left lower extremity. Current laboratory data is not noted. The patient's last middle lab work was done yesterday, January 03. Progress note dated January 06, 2024. 63-year-old male seen in room 454. The patient is on room air. He continues on cefepime and daptomycin. He is getting saline at 20 cc an hour. The patient was actually admitted for cellulitis of the left lower extremity. CT scan revealed a 6.7 x 4.6 cm mass in the left lower lobe. The plan is to bring the patient back to the office for complete pulmonary function testing, and outpatient PET scan. No new labs today. Blood and wound cultures are negative thus far. Progress note dated January 07, 2024. 63-year-old male seen in room 454. He is currently remains on room air. He also continues on daptomycin and cefepime, for his left leg cellulitis. Laboratory data includes a white count of 16.3, hemoglobin 10.6, hematocrit 32.6, and platelet count of 406,000. Sodium 138, potassium 4.5, chlorides 102, CO2 24, BUN is 19.8 and creatinine 0.7. Glucose is 102. Procalcitonin level done on the was 0.34. Objective - Vital Signs Vital signs: Vital Signs Temp 97.8 F 01/07/24 07:25 Pulse 85 01/07/24 07:25 Resp 17 01/07/24 07:25 BP 101/66 01/07/24 07:25 Pulse Ox 94 L 01/07/24 07:25 FiO2 Intake & Output 01/06/24 01/07/24 01/07/24 18:59 06:59 18:59 Other: Voiding Method Toilet # Voids 5 2 # Bowel Movements 2 - Exam No acute distress, oriented 3. Currently on room air. No acute distress. HEENT examination is grossly unremarkable. Mucous membranes are moist. No oral lesions. Neck supple. Full range of motion. No adenopathy thyromegaly or neck vein distention. Cardiovascular examination reveals regular rhythm rate. S1-S2 normal. No S3 or S4. No discernible murmur noted. Lungs reveal clear breath sounds. Breath sounds are equal bilaterally. No adventitious lung sounds including wheezes rhonchi or crackles. Abdomen soft bowel sounds are heard. No masses or tenderness. Extremities are intact. The left leg is wrapped. It is clearly edematous. No clubbing or cyanosis. Skin is without rash or lesion. Neurologic examination is brief but nonfocal. - Labs CBC & Chem 7: 01/07/24 04:37 01/07/24 04:37 Labs: Abnormal Lab Results - Last 24 Hours (Table) 01/07/24 01/07/24 Range/Units 04:37 04:37 WBC 16.30 H (4.50-10.00) X 10*3/uL RBC 3.43 L (4.40-5.60) X 10*6/uL Hgb 10.6 L (13.0-17.0) g/dL Hct 32.6 L (39.6-50.0) % Immature Gran # 0.44 H (0.00-0.04) X 10*3/uL Neutrophils # 12.43 H (1.80-7.70) X 10*3/uL Monocytes # 1.21 H (0.20-1.00) X 10*3/uL BUN/Creatinine Ratio 28.29 H (12.00-20.00) Ratio Glucose 112 H (70-110) mg/dL Calcium 8.0 L (8.7-10.3) mg/dL AST 142 H (14-35) U/L ALT 246 H (10-49) U/L Albumin 3.0 L (3.8-4.9) g/dL Albumin/Globulin Ratio 0.91 L (1.60-3.17) Ratio Assessment and Plan Assessment: Left lower extremity cellulitis, currently on daptomycin and cefepime as per infectious diseases. 6.7 x 4.6 cm spiculated mass, left lower lobe, suspicious for lung cancer. Prior history of 20 years of tobacco use. Shortness of breath on exertion, may relate to underlying COPD. History of hypothyroidism. Plan: Plan dated January 04, 2024. I had a conversation with the patient and patient's . The patient will need a follow-up in the office, with complete pulmonary function testing. In addition, the patient will need an outpatient PET scan. Currently, the patient is receiving cefepime and daptomycin for his left lower extremity cellulitis. Labs, x-rays, and all medications are reviewed. The lesion in the lung, is suspicious for primary bronchogenic carcinoma. Plan dated January 13, 2024. The patient is seen today. We discussed the plan. The plan is for him to continue antibiotics, for his left lower extremity cellulitis. As an outpatient he will visit with me in the office, he will have a complete pulmonary function test and a PET scan as an outpatient. Additional recommendations and suggesti ons are forthcoming. He is very comfortable with this plan. Plan dated January 06, 2024. The patient is stable from the pulmonary standpoint. The patient will need an outpatient PET scan, and pulmonary function testing. Additional recommendations and suggestions are forthcoming. His CT scan of the abdomen, did not reveal any significant pathology. We will continue to follow. Prognosis is guarded. No additional recommendations are made. All questions have been answered. Plan dated January 07, 2024. The patient is currently receiving antibiotics for his left lower extremity cellulitis. The patient will eventually need complete pulmonary function test, and an outpatient PET scan. The patient will also eventually need a biopsy. Additional recommendations and suggestions are forthcoming. Labs, x-rays, and medications are reviewed. Clinically, the patient is very stable. Time with Patient: Less than 30
--- NOTE | 2024-01-07 14:04 | P.PN ---
Subjective Progress Note Date: 01/07/24 This is a 63-year-old male patient with past medical history significant for hypothyroidism who presented to ER with a complaint of left lower extremity pain, swelling, redness, fatigue and further evaluation of recently diagnosed pneumonia. Patient stated that he was recently seen in the ER at a different facility, was diagnosed to have pneumonia and was evaluated for low blood pressure and required significant IV fluid resuscitation. Patient stated that he was sent home on antibiotics cefdinir and doxycycline then he started to notice left leg purplish discoloration and blister. Patient complained of chills, denied any fever, denied any sore throat, chest pain, palpitations, nausea vomiting diarrhea constipation abdominal pain dysuria urgency frequency. Patient complaining of left lower extremity pain, swelling. Patient complained of swelling of both legs, worse after patient received IV fluids at different hospital. Patient afebrile, heart rate 85, respiratory rate 20, blood pressure 111/58, saturating 97% on room air. WBCs 12.2 with absolute neutrophils 10.0, hemoglobin 10.9, platelet 211. INR 1.1. Sodium was 127 improved to 138. Potassium was low 3.2 now improved to 4.0. Normal BUN/creatinine at 0.9. Mildly elevated AST at 60, otherwise unremarkable LFTs. Troponin unremarkable. Chest x-ray showed focal medial posterior left midlung opacity. 12/31. Patient seen and examined. Blood work done this morning showed WBC 13.7, hematin 0.5, platelet count 217, sodium 138, potassium 3.9. Duplex ultrasound showed no evidence of DVT in lower extremities. Patient had low-grade fevers overnight Still has redness of left lower extremity 01/01. Patient seen and examined. Blood work done this morning showed WBC 15.09, hemoglobin 9.8, platelet count 189. 2D echo done showed mildly enlarged left ventricle with preserved systolic function, biatrial enlargement. Complaining of increasing redness of left upper extremity. 01/02. Patient seen and examined. States he feels much better compared to yesterday, redness of left extremity has improved. Patient was ambulating in the hallways 01/03. Patient seen and examined. Patient continues to have leukocytosis, chest x-ray done this morning showed COPD with focal opacity possible 6.6 cm posterior left midlung mass/neoplasm, CT chest ordered /. Patient seen and examined. CT chest done showed 6.7 x 4.6 spiculated mass left lower lobe suspicious for neoplasm. Order CT abdomen and pelvis. Still has redness of left lower extremity. Pulmonology recommended outpatient PFTs and PET scan 01/05. Patient seen and examined. CT abdomen done did not show any acute intra- abdominal pathology. 01/06. Patient seen and examined. Swelling of of left lower extremity has improved, erythema is also improved. Patient is complaining of rash on his torso REVIEW OF SYSTEMS: CONSTITUTIONAL: As mentioned above CARDIOVASCULAR: No chest pain, no palpitations, no syncope. PULMONARY: No shortness of breath, no cough, GASTROINTESTINAL: No diarrhea, no nausea, no vomiting, no abdominal pain. NEUROLOGICAL: No headaches, no weakness, PHYSICAL EXAMINATION: GENERAL: The patient is alert and oriented x3, not in any acute distress. Well developed, well nourished. HEENT: Pupils are round and equally reacting to light. EOMI. No scleral icterus. No conjunctival pallor. Normocephalic, atraumatic. No pharyngeal erythema. No thyromegaly. CARDIOVASCULAR: S1 and S2 present. No murmurs, rubs, or gallops. PULMONARY: Chest is clear to auscultation, no wheezing or crackles. ABDOMEN: Soft, nontender, nondistended, normoactive bowel sounds. No palpable organomegaly. MUSCULOSKELETAL: Left lower extremity erythema EXTREMITIES: No cyanosis, clubbing, or pedal edema. NEUROLOGICAL: Gross neurological examination did not reveal any focal deficits. SKIN: No rashes. Assessment and plan Left lower EXTR cellulitis Pneumonia Left lower lobe lung mass suspicious for bronchogenic carcinoma Left leg blister Hyponatremia Hypokalemia Transaminitis Monitor vital signs Monitor CBC Monitor CMP Follow-up blood culture Follow-up on wound culture Continue Dapto and cefepime Continue Lasix 20 mg daily Continue Synthroid ID following Pulmonology following, recommend outpatient PFTs and PET scan Labs and medication were reviewed.. Continue same treatment. Continue with symptomatic treatment. Resume home medication. Monitor labs and vitals. DVT and GI prophylaxis. Further recommendations as per clinical course of the patient Dictation was produced using [employer] dictation software. please excuse any grammatical, word or spelling errors. Objective - Vital Signs Vital signs: Vital Signs Temp 98.4 F 09/22/24 14:00 Pulse 62 01/07/24 14:00 Resp 17 01/07/24 14:00 BP 110/76 01/07/24 14:00 Pulse Ox 97 01/07/24 14:00 FiO2 Intake & Output 01/06/24 01/07/24 01/07/24 18:59 06:59 18:59 Other: Voiding Method Toilet # Voids 5 2 # Bowel Movements 2 - Labs CBC & Chem 7: 01/07/24 04:37 01/07/24 04:37 Labs: Abnormal Lab Results - Last 24 Hours (Table) 01/07/24 01/07/24 Range/Units 04:37 04:37 WBC 16.30 H (4.50-10.00) X 10*3/uL RBC 3.43 L (4.40-5.60) X 10*6/uL Hgb 10.6 L (13.0-17.0) g/dL Hct 32.6 L (39.6-50.0) % Immature Gran # 0.44 H (0.00-0.04) X 10*3/uL Neutrophils # 12.43 H (1.80-7.70) X 10*3/uL Monocytes # 1.21 H (0.20-1.00) X 10*3/uL BUN/Creatinine Ratio 28.29 H (12.00-20.00) Ratio Glucose 112 H (70-110) mg/dL Calcium 8.0 L (8.7-10.3) mg/dL AST 142 H (14-35) U/L ALT 246 H (10-49) U/L Albumin 3.0 L (3.8-4.9) g/dL Albumin/Globulin Ratio 0.91 L (1.60-3.17) Ratio
[2024-01-07] MEDS: diphenhydrAMINE 25 MG CAP PO SCH (14:12)
--- NOTE | 2024-01-07 16:10 | P.PN ---
Subjective Progress Note Date: 01/07/24 Principal diagnosis: Reason for follow-up is left lower extremity cellulitis and leukocytosis Patient is a 63-year-old male with a past medical history significant for thyroid disorder presenting to the hospital for evaluation of left lower extremity pain swelling and redness that has been going on for about 2 days before presentation to the hospital. On today's evaluation that is 01/07/2024, patient has been afebrile, patient is breathing comfortably and is currently on room air, patient denies having any significant cough no chest pain shortness of breath, patient denies nausea vomiting or diarrhea and no abdominal pain, left lower extremity pain and swelling has decreased patient has developed a rash mostly to the back and left leg. The patient white count 16.30 creatinine 0.7 Objective - Vital Signs Vital signs: Vital Signs Temp 98.4 F 01/07/24 14:00 Pulse 62 01/07/24 14:00 Resp 17 01/07/24 14:00 BP 110/76 01/07/24 14:00 Pulse Ox 97 01/07/24 14:00 FiO2 Intake & Output 01/06/24 01/07/24 01/07/24 18:59 06:59 18:59 Other: Voiding Method Toilet # Voids 5 2 # Bowel Movements 2 - Exam GENERAL DESCRIPTION: An elderly male up in the chair in no distress RESPIRATORY SYSTEM: Unlabored breathing , decreased breath sounds at bases HEART: S1 S2 regular rate and rhythm , ABDOMEN: Soft , no tenderness EXTREMITIES: Left leg swelling redness slightly decreased, patient did have erythematous rash to the left leg and back - Labs CBC & Chem 7: 01/07/24 04:37 01/07/24 04:37 Labs: Abnormal Lab Results - Last 24 Hours (Table) 01/07/24 01/07/24 Range/Units 04:37 04:37 WBC 16.30 H (4.50-10.00) X 10*3/uL RBC 3.43 L (4.40-5.60) X 10*6/uL Hgb 10.6 L (13.0-17.0) g/dL Hct 32.6 L (39.6-50.0) % Immature Gran # 0.44 H (0.00-0.04) X 10*3/uL Neutrophils # 12.43 H (1.80-7.70) X 10*3/uL Monocytes # 1.21 H (0.20-1.00) X 10*3/uL BUN/Creatinine Ratio 28.29 H (12.00-20.00) Ratio Glucose 112 H (70-110) mg/dL Calcium 8.0 L (8.7-10.3) mg/dL AST 142 H (14-35) U/L ALT 246 H (10-49) U/L Albumin 3.0 L (3.8-4.9) g/dL Albumin/Globulin Ratio 0.91 L (1.60-3.17) Ratio Assessment and Plan (1) Left leg cellulitis Current Visit: Yes Status: Acute Code(s): L03.116 - CELLULITIS OF LEFT LOWER LIMB SNOMED Code(s): 24096587385406639 (2) Leukocytosis Current Visit: Yes Status: Acute Code(s): D72.829 - ELEVATED WHITE BLOOD CELL COUNT, UNSPECIFIED SNOMED Code(s): 933374114 (3) Rash Current Visit: Yes Status: Acute Code(s): R21 - RASH AND OTHER NONSPECIFIC SKIN ERUPTION SNOMED Code(s): 543864494 Plan: 1patient presented hospital with extensive left lower extremity cellulitis in this patient noted to have diffuse swelling redness blister formation likely streptococcal cellulitis failing outpatient oral antibiotic therapy 2patient is afebrile left leg swelling redness slightly decreased, patient to continue with cefepime will discontinue daptomycin 3rash possibly contact dermatitis as rash is limited only to the left flank and the back area we will give a dose of Solu-Medrol advised calamine lotion to the rash Dictation was produced using [email or web address] dictation software. please excuse any grammatical, word or spelling errors. Time with Patient: Less than 30
[2024-01-07] MEDS: methylPREDNISolone SOD SUCCI 125 MG/2 ML VIAL IV STA (16:47)
[2024-01-08] MEDS: methylPREDNISolone SOD SUCCI 40 MG/ML 1 ML VIAL IV STA (01:21)
--- NOTE | 2024-01-08 12:54 | P.PN ---
Subjective Progress Note Date: 01/08/24 This is a 63-year-old male patient with past medical history significant for hypothyroidism who presented to ER with a complaint of left lower extremity pain, swelling, redness, fatigue and further evaluation of recently diagnosed pneumonia. Patient stated that he was recently seen in the ER at a different facility, was diagnosed to have pneumonia and was evaluated for low blood pressure and required significant IV fluid resuscitation. Patient stated that he was sent home on antibiotics cefdinir and doxycycline then he started to notice left leg purplish discoloration and blister. Patient complained of chills, denied any fever, denied any sore throat, chest pain, palpitations, nausea vomiting diarrhea constipation abdominal pain dysuria urgency frequency. Patient complaining of left lower extremity pain, swelling. Patient complained of swelling of both legs, worse after patient received IV fluids at different hospital. Patient afebrile, heart rate 85, respiratory rate 20, blood pressure 111/58, saturating 97% on room air. WBCs 12.2 with absolute neutrophils 10.0, hemoglobin 10.9, platelet 211. INR 1.1. Sodium was 127 improved to 138. Potassium was low 3.2 now improved to 4.0. Normal BUN/creatinine at 0.9. Mildly elevated AST at 60, otherwise unremarkable LFTs. Troponin unremarkable. Chest x-ray showed focal medial posterior left midlung opacity. 12/31. Patient seen and examined. Blood work done this morning showed WBC 13.7, hematin 0.5, platelet count 217, sodium 138, potassium 3.9. Duplex ultrasound showed no evidence of DVT in lower extremities. Patient had low-grade fevers overnight Still has redness of left lower extremity 01/01. Patient seen and examined. Blood work done this morning showed WBC 15.09, hemoglobin 9.8, platelet count 189. 2D echo done showed mildly enlarged left ventricle with preserved systolic function, biatrial enlargement. Complaining of increasing redness of left upper extremity. 01/02. Patient seen and examined. States he feels much better compared to yesterday, redness of left extremity has improved. Patient was ambulating in the hallways 01/03. Patient seen and examined. Patient continues to have leukocytosis, chest x-ray done this morning showed COPD with focal opacity possible 6.6 cm posterior left midlung mass/neoplasm, CT chest ordered /. Patient seen and examined. CT chest done showed 6.7 x 4.6 spiculated mass left lower lobe suspicious for neoplasm. Order CT abdomen and pelvis. Still has redness of left lower extremity. Pulmonology recommended outpatient PFTs and PET scan 01/05. Patient seen and examined. CT abdomen done did not show any acute intra- abdominal pathology. 01/06. Patient seen and examined. Swelling of of left lower extremity has improved, erythema is also improved. Patient is complaining of rash on his torso 01/07. Patient seen and examined patient has rash over his torso and legs. Cefepime was discontinued. REVIEW OF SYSTEMS: CONSTITUTIONAL: As mentioned above CARDIOVASCULAR: No chest pain, no palpitations, no syncope. PULMONARY: No shortness of breath, no cough, GASTROINTESTINAL: No diarrhea, no nausea, no vomiting, no abdominal pain. NEUROLOGICAL: No headaches, no weakness, PHYSICAL EXAMINATION: GENERAL: The patient is alert and oriented x3, not in any acute distress. Well developed, well nourished. HEENT: Pupils are round and equally reacting to light. EOMI. No scleral icterus. No conjunctival pallor. Normocephalic, atraumatic. No pharyngeal erythema. No thyromegaly. CARDIOVASCULAR: S1 and S2 present. No murmurs, rubs, or gallops. PULMONARY: Chest is clear to auscultation, no wheezing or crackles. ABDOMEN: Soft, nontender, nondistended, normoactive bowel sounds. No palpable organomegaly. MUSCULOSKELETAL: Left lower extremity erythema EXTREMITIES: No cyanosis, clubbing, or pedal edema. NEUROLOGICAL: Gross neurological examination did not reveal any focal deficits. SKIN: Maculopapular rash over the torso and limbs Assessment and plan Left lower EXTR cellulitis Pneumonia Left lower lobe lung mass suspicious for bronchogenic carcinoma Left leg blister Hyponatremia Hypokalemia Transaminitis Monitor vital signs Monitor CBC Monitor CMP Follow-up blood culture Follow-up on wound culture Continue Lasix 20 mg daily Continue daptomycin Continue Synthroid ID following Pulmonology following, recommend outpatient PFTs and PET scan Labs and medication were reviewed.. Continue same treatment. Continue with symptomatic treatment. Resume home medication. Monitor labs and vitals. DVT and GI prophylaxis. Further recommendations as per clinical course of the patient Dictation was produced using [employer] software. please excuse any grammatical, word or spelling errors. Objective - Vital Signs Vital signs: Vital Signs Temp 97.4 F L 01/08/24 09:03 Pulse 115 H 01/08/24 08:00 Resp 18 01/08/24 08:00 BP 132/73 01/08/24 08:00 Pulse Ox 98 01/08/24 08:00 FiO2 Intake & Output 01/07/24 01/08/24 01/08/24 18:59 06:59 18:59 Other: Voiding Method Toilet # Voids 4 2 - Labs CBC & Chem 7: 01/07/24 04:37 01/07/24 04:37 Labs: Abnormal Lab Results - Last 24 Hours (Table) 01/07/24 Range/Units 04:37 BUN/Creatinine Ratio 28.29 H (12.00-20.00) Ratio Glucose 112 H (70-110) mg/dL Calcium 8.0 L (8.7-10.3) mg/dL AST 142 H (14-35) U/L ALT 246 H (10-49) U/L Albumin 3.0 L (3.8-4.9) g/dL Albumin/Globulin Ratio 0.91 L (1.60-3.17) Ratio
[2024-01-08] MEDS: CALAMINE/ZINC OXIDE LOTION 177 ML BTL TOPICAL PRN (13:58)
[2024-01-08] MEDS: LINEZOLID 600 MG TAB PO SCH (13:59)
[2024-01-08] MEDS: methylPREDNISolone SOD SUCCI 125 MG/2 ML VIAL IV SCH (16:49)
--- NOTE | 2024-01-08 18:27 | P.PN ---
Subjective Progress Note Date: 01/08/24 This is a 63-year-old male who presented to the emergency department on December 29. He came in with swelling of the left leg, with blistering. It was quite painful, with swelling and redness, in both lower extremities, left greater than right. Recently, the patient was diagnosed as having pneumonia, was complaining of being weak and fatigued. In addition, he has had this persistent nonproductive cough, for some time. His states that he does have shortness of breath on exertion. I was consulted, because a chest x-ray revealed an infiltrate/mass, initially, in the left lung, but a CT scan suggest a 6.7 cm x 4.6 cm mass, in the left lower lobe. The patient did smoke for about 20 years. He quit a number of years back. 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 The patient has not been feeling well lately, including the weakness and fatigue as mentioned previously. The patient states that he is quite active, and he does kayaking, and flyfishing. It appears that his only major medical problem is hypothyroidism, and cataracts. He was on Synthroid, as an outpatient. It also appears that he was on antibiotics as an outpatient. Progress note dated January 05, 2024. 63-year-old male seen yesterday in consultation. He had a chest x-ray and a CT scan which suggested a 6.7 x 4.6 cm mass in the left lower lobe. The patient was a smoker in the past. Does not smoke currently. I did mention to him that he will need some pulmonary function testing, PET scan, and eventually a biopsy. Currently, he is being admitted for cellulitis of the left lower extremity. Current laboratory data is not noted. The patient's last middle lab work was done yesterday, January 03. Progress note dated January 06, 2024. 63-year-old male seen in room 454. The patient is on room air. He continues on cefepime and daptomycin. He is getting saline at 20 cc an hour. The patient was actually admitted for cellulitis of the left lower extremity. CT scan revealed a 6.7 x 4.6 cm mass in the left lower lobe. The plan is to bring the patient back to the office for complete pulmonary function testing, and outpatient PET scan. No new labs today. Blood and wound cultures are negative thus far. Progress note dated January 07, 2024. 63-year-old male seen in room 454. He is currently remains on room air. He also continues on daptomycin and cefepime, for his left leg cellulitis. Laboratory data includes a white count of 16.3, hemoglobin 10.6, hematocrit 32.6, and platelet count of 406,000. Sodium 138, potassium 4.5, chlorides 102, CO2 24, BUN is 19.8 and creatinine 0.7. Glucose is 102. Procalcitonin level done on the was 0.34. 01/08/2024, the patient is being seen for a follow-up. Still being treated for a cellulitis of the lower extremity. The patient developed an acute allergic reaction and based on that IV cefepime was discontinued and the patient was given IV Solu-Medrol. He is already feeling better. I also discussed with him the large left lower lobe mass is present on his CAT scan of the chest. This obviously malignancy and the patient may need to be biopsied at the later stage. No new labs from today. Most recent labs are from 01/07/2024. CBC showed a white cell count of 16 with a hemoglobin 10.6. Electrolytes are all within normal limits. His LFTs are slightly elevated with an AST of 142, ALT of 246. He has remote history of smoking. Procalcitonin level is at 0.34. At this point in time, the patient is on Zyvox. He is also on Lasix 20 mg IV every 12 hours. No evidence of DVT in the lower extremity. Objective - Vital Signs Vital signs: Vital Signs Temp 97.4 F L 01/08/24 09:03 Pulse 115 H 01/08/24 08:00 Resp 18 01/08/24 08:00 BP 132/73 01/08/24 08:00 Pulse Ox 98 01/08/24 08:00 FiO2 Intake & Output 01/07/24 01/08/24 01/08/24 18:59 06:59 18:59 Other: Voiding Method Toilet # Voids 4 2 - Exam No acute distress, oriented 3. Currently on room air. No acute distress. HEENT examination is grossly unremarkable. Mucous membranes are moist. No oral lesions. Neck supple. Full range of motion. No adenopathy thyromegaly or neck vein distention. Cardiovascular examination reveals regular rhythm rate. S1-S2 normal. No S3 or S4. No discernible murmur noted. Lungs reveal clear breath sounds. Breath sounds are equal bilaterally. No adventitious lung sounds including wheezes rhonchi or crackles. Abdomen soft bowel sounds are heard. No masses or tenderness. Extremities are intact. The left leg is wrapped. It is clearly edematous. No clubbing or cyanosis. Skin is without rash or lesion. There is cellulitis of the left lower extremity in the area is quite wrapped and there is still edema lower extremities bilaterally. Neurologic examination is brief but nonfocal. - Labs CBC & Chem 7: 01/07/24 04:37 01/07/24 04:37 Assessment and Plan Plan: Left lower extremity cellulitis, on daptomycin and cefepime that was switched to Zyvox as the patient developed an allergic skin reaction Allergic skin reaction/urticaria rash, likely drug induced, likely secondary to cephalosporin. Currently on Zyvox. 6.7 x 4.6 cm spiculated mass, left lower lobe, suspicious for lung cancer. Prior history of 20 years of tobacco use. Shortness of breath on exertion, may relate to underlying COPD. History of hypothyroidism. Mild transaminitis Obesity with a BMI of 31.1 Plan: Continue Zyvox Continue Benadryl Continue Lasix 20 mg IV every 12 hours Continue IV Solu-Medrol Monitor the rash Continue Zyvox Monitor cellulitis Lung biopsy once the patient is more stable.
--- NOTE | 2024-01-08 22:53 | P.PN ---
Subjective Progress Note Date: 01/08/24 Principal diagnosis: Reason for follow-up is left lower extremity cellulitis and leukocytosis Patient is a 63-year-old male with a past medical history significant for thyroid disorder presenting to the hospital for evaluation of left lower extremity pain swelling and redness that has been going on for about 2 days before presentation to the hospital. On today's evaluation that is 01/08/2024, Patient is afebrile this morning patient denies having any chest pain shortness of breath or cough, the patient is breathing comfortably on room air, patient denies any abdominal pain no diarrhea no nausea no vomiting, overall swelling to the left lower extremity has decreased has been complaining of itching and rash especially while in the left leg and the trunk denies having any difficulty breathing tongue swelling. Patient white count is 16.30, creatinine 0.7 Objective - Vital Signs Vital signs: Vital Signs Temp 97.4 F L 01/08/24 09:03 Pulse 115 H 01/08/24 08:00 Resp 18 01/08/24 08:00 BP 132/73 01/08/24 08:00 Pulse Ox 98 01/08/24 08:00 FiO2 Intake & Output 01/07/24 01/08/24 01/08/24 18:59 06:59 18:59 Other: Voiding Method Toilet # Voids 4 2 - Exam GENERAL DESCRIPTION: An elderly male up in the chair in no distress RESPIRATORY SYSTEM: Unlabored breathing , decreased breath sounds at bases HEART: S1 S2 regular rate and rhythm , ABDOMEN: Soft , no tenderness EXTREMITIES: Left leg swelling redness slightly decreased, patient did have more marked erythematous rash to the trunk and left lower extremity not to the right lower extremity - Labs CBC & Chem 7: 01/07/24 04:37 01/07/24 04:37 Assessment and Plan (1) Left leg cellulitis Current Visit: Yes Status: Acute Code(s): L03.116 - CELLULITIS OF LEFT LOWER LIMB SNOMED Code(s): 19923925067167655 (2) Leukocytosis Current Visit: Yes Status: Acute Code(s): D72.829 - ELEVATED WHITE BLOOD CELL COUNT, UNSPECIFIED SNOMED Code(s): 162772592 (3) Rash Current Visit: Yes Status: Acute Code(s): R21 - RASH AND OTHER NONSPECIFIC SKIN ERUPTION SNOMED Code(s): 786088586 Plan: 1patient presented hospital with extensive left lower extremity cellulitis in this patient noted to have diffuse swelling redness blister formation likely streptococcal cellulitis failing outpatient oral antibiotic therapy 2patient is afebrile left leg swelling redness slightly decreased, patient not developing significant rash questionably related to the cefepime which will be discontinued we will give him a short course of Solu-Medrol because of extensive rash and switch antibiotic therapy to oral Zyvox if overall improvement to the rash he may able to go home on oral Zyvox in the a.m. multiple question concern answered Dictation was produced using [employer] dictation software. please excuse any grammatical, word or spelling errors. Time with Patient: Less than 30
[2024-01-09 02:29] VITALS: RESP 17
[2024-01-09 07:33] VITALS: BP 133/78; PULSE 78; TEMP 97.8
--- NOTE | 2024-01-09 13:08 | P.DS ---
Providers Date of admission: 12/30/23 16:07 Expected date of discharge: 01/09/24 Attending physician: Cheyenne Pike Consults: 12/31/23 09:36 Consult Physician Routine Consulting Provider: Gerardo Davidson Consult Reason/Comments: LLE cellulitis, PNA Do you want consulting provider notified?: Yes 01/04/24 09:03 Consult Physician Routine Consulting Provider: Isacc Grubbs Consult Reason/Comments: abn chest xray, poss mass Do you want consulting provider notified?: Yes Primary care physician: Stated None Hospital Course: Discharge diagnoses; Left lower EXTR cellulitis Pneumonia Left lower lobe lung mass suspicious for bronchogenic carcinoma Left leg blister Hyponatremia Hypokalemia Transaminitis Allergic drug reaction Hospital course; This is a 63-year-old male patient with past medical history significant for hypothyroidism who presented to ER with a complaint of left lower extremity pain, swelling, redness, fatigue and further evaluation of recently diagnosed pneumonia. Patient stated that he was recently seen in the ER at a different facility, was diagnosed to have pneumonia and was evaluated for low blood pressure and required significant IV fluid resuscitation. Patient stated that he was sent home on antibiotics cefdinir and doxycycline then he started to notice left leg purplish discoloration and blister. Patient complained of chills, denied any fever, denied any sore throat, chest pain, palpitations, nausea vomiting diarrhea constipation abdominal pain dysuria urgency frequency. Patient complaining of left lower extremity pain, swelling. Patient complained of swelling of both legs, worse after patient received IV fluids at different hospital. Patient afebrile, heart rate 85, respiratory rate 20, blood pressure 111/58, saturating 97% on room air. WBCs 12.2 with absolute neutrophils 10.0, hemoglobin 10.9, platelet 211. INR 1.1. Sodium was 127 improved to 138. Potassium was low 3.2 now improved to 4.0. Normal BUN/creatinine at 0.9. Mildly elevated AST at 60, otherwise unremarkable LFTs. Troponin unremarkable. Chest x-ray showed focal medial posterior left midlung opacity. 12/31. Patient seen and examined. Blood work done this morning showed WBC 13.7, hematin 0.5, platelet count 217, sodium 138, potassium 3.9. Duplex ultrasound showed no evidence of DVT in lower extremities. Patient had low-grade fevers overnight Still has redness of left lower extremity 01/01. Patient seen and examined. Blood work done this morning showed WBC 15.09, hemoglobin 9.8, platelet count 189. 2D echo done showed mildly enlarged left ventricle with preserved systolic function, biatrial enlargement. Complaining of increasing redness of left upper extremity. 01/02. Patient seen and examined. States he feels much better compared to , redness of left extremity has improved. Patient was ambulating in the hallways 01/03. Patient seen and examined. Patient continues to have leukocytosis, chest x-ray done this morning showed COPD with focal opacity possible 6.6 cm posterior left midlung mass/neoplasm, CT chest ordered . Patient seen and examined. CT chest done showed 6.7 x 4.6 spiculated mass left lower lobe suspicious for neoplasm. Order CT abdomen and pelvis. Still has redness of left lower extremity. Pulmonology recommended outpatient PFTs and PET scan 01/05. Patient seen and examined. CT abdomen done did not show any acute intra- abdominal pathology. 01/06. Patient seen and examined. Swelling of of left lower extremity has improved, erythema is also improved. Patient is complaining of rash on his torso 01/07. Patient seen and examined patient has rash over his torso and legs. Cefepime was discontinued. 01/08. Patient seen and examined. Being discharged on Zyvox for 1 week. Outpatient follow-up with PCP and pulmonology PHYSICAL EXAMINATION: GENERAL: The patient is alert and oriented x3, not in any acute distress. Well developed, well nourished. HEENT: Pupils are round and equally reacting to light. EOMI. No scleral icterus. No conjunctival pallor. Normocephalic, atraumatic. No pharyngeal erythema. No thyromegaly. CARDIOVASCULAR: S1 and S2 present. No murmurs, rubs, or gallops. PULMONARY: Chest is clear to auscultation, no wheezing or crackles. ABDOMEN: Soft, nontender, nondistended, normoactive bowel sounds. No palpable organomegaly. MUSCULOSKELETAL: Left lower extremity erythema improved EXTREMITIES: No cyanosis, clubbing, or pedal edema. NEUROLOGICAL: Gross neurological examination did not reveal any focal deficits. SKIN: Maculopapular rash over the torso and limbs has improved Dictation was produced using [employer] software. please excuse any grammatical, word or spelling errors. Patient Condition at Discharge: Fair Plan - Discharge Summary New Discharge Prescriptions: New methylPREDNISolone Dose Pack [Medrol Dose Pack] 4 mg PO DIRECTED #1 packet Linezolid [Zyvox] 600 mg PO Q12HR 7 Days #14 tab Furosemide [Lasix] 20 mg PO DAILY #30 tab Continue Multivit-Mins/Iron/Folic/Lycop [Centrum Men's Tablet] 1 tab PO DAILY [place]-3/Dha/Epa/Fish Oil [Fish Oil 1,000 mg Softgel] 1 cap PO DAILY Zinc Gluconate [Zinc] 50 mg PO DAILY Levothyroxine Sodium [Synthroid] 100 mcg PO DAILY Glucosam/Artem-Msm1/C/Antoni/Bosw [Glucosamine-Chondroitin Tablet] 1 tab PO DAILY Discontinued Doxycycline Hyclate 100 mg PO BID Cefdinir [Omnicef] 300 mg PO BID Discharge Medication List Glucosam/Artem-Msm1/C/Antoni/Bosw [Glucosamine-Chondroitin Tablet] 1 tab PO DAILY 12/30/23 [History] Levothyroxine Sodium [Synthroid] 100 mcg PO DAILY 12/30/23 [History] Multivit-Mins/Iron/Folic/Lycop [Centrum Men's Tablet] 1 tab PO DAILY 12/30/23 [History] [place]-3/Dha/Epa/Fish Oil [Fish Oil 1,000 mg Softgel] 1 cap PO DAILY 12/30/23 [History] Zinc Gluconate [Zinc] 50 mg PO DAILY 12/30/23 [History] Furosemide [Lasix] 20 mg PO DAILY #30 tab 01/09/24 [Rx] Linezolid [Zyvox] 600 mg PO Q12HR 7 Days #14 tab 01/09/24 [Rx] methylPREDNISolone Dose Pack [Medrol Dose Pack] 4 mg PO DIRECTED #1 packet 01/09/24 [Rx] Follow up Appointment(s)/Referral(s): Shanell Amanda DO [REFERRING] - 1-2 Days Zak Zhu MD [STAFF PHYSICIAN] - 1 Week Discharge Disposition: HOME SELF-CARE
--- NOTE | 2024-01-09 15:19 | P.PN ---
Subjective Progress Note Date: 01/09/24 This is a 63-year-old male who presented to the emergency department on December 29. He came in with swelling of the left leg, with blistering. It was quite painful, with swelling and redness, in both lower extremities, left greater than right. Recently, the patient was diagnosed as having pneumonia, was complaining of being weak and fatigued. In addition, he has had this persistent nonproductive cough, for some time. His states that he does have shortness of breath on exertion. I was consulted, because a chest x-ray revealed an infiltrate/mass, initially, in the left lung, but a CT scan suggest a 6.7 cm x 4.6 cm mass, in the left lower lobe. The patient did smoke for about 20 years. He quit a number of years back. 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 The patient has not been feeling well lately, including the weakness and fatigue as mentioned previously. The patient states that he is quite active, and he does kayaking, and flyfishing. It appears that his only major medical problem is hypothyroidism, and cataracts. He was on Synthroid, as an outpatient. It also appears that he was on antibiotics as an outpatient. Progress note dated January 05, 2024. 63-year-old male seen yesterday in consultation. He had a chest x-ray and a CT scan which suggested a 6.7 x 4.6 cm mass in the left lower lobe. The patient was a smoker in the past. Does not smoke currently. I did mention to him that he will need some pulmonary function testing, PET scan, and eventually a biopsy. Currently, he is being admitted for cellulitis of the left lower extremity. Current laboratory data is not noted. The patient's last middle lab work was done yesterday, January 03. Progress note dated January 06, 2024. 63-year-old male seen in room 454. The patient is on room air. He continues on cefepime and daptomycin. He is getting saline at 20 cc an hour. The patient was actually admitted for cellulitis of the left lower extremity. CT scan revealed a 6.7 x 4.6 cm mass in the left lower lobe. The plan is to bring the patient back to the office for complete pulmonary function testing, and outpatient PET scan. No new labs today. Blood and wound cultures are negative thus far. Progress note dated January 07, 2024. 63-year-old male seen in room 454. He is currently remains on room air. He also continues on daptomycin and cefepime, for his left leg cellulitis. Laboratory data includes a white count of 16.3, hemoglobin 10.6, hematocrit 32.6, and platelet count of 406,000. Sodium 138, potassium 4.5, chlorides 102, CO2 24, BUN is 19.8 and creatinine 0.7. Glucose is 102. Procalcitonin level done on the was 0.34. 01/08/2024, the patient is being seen for a follow-up. Still being treated for a cellulitis of the lower extremity. The patient developed an acute allergic reaction and based on that IV cefepime was discontinued and the patient was given IV Solu-Medrol. He is already feeling better. I also discussed with him the large left lower lobe mass is present on his CAT scan of the chest. This obviously malignancy and the patient may need to be biopsied at the later stage. No new labs from today. Most recent labs are from 01/07/2024. CBC showed a white cell count of 16 with a hemoglobin 10.6. Electrolytes are all within normal limits. His LFTs are slightly elevated with an AST of 142, ALT of 246. He has remote history of smoking. Procalcitonin level is at 0.34. At this point in time, the patient is on Zyvox. He is also on Lasix 20 mg IV every 12 hours. No evidence of DVT in the lower extremity. On today's evaluation of 01/09/2024, seen the patient for a follow-up. The patient is doing well. No specific complaints. Left lower extremity cellulitis and edema is essentially improving and the patient is also recovered from his allergic reaction. No significant rash. No significant itching at this point in time. As for the right lower lobe mass, this will be done on an outpatient basis as the patient has a very suspicious left lower lobe mass which is highly suggestive of underlying malignancy. The patient remains on Zyvox. The patient is also on Lasix 20 mg p.o. daily. Objective - Vital Signs Vital signs: Vital Signs Temp 97.8 F 01/09/24 07:33 Pulse 78 01/09/24 07:33 Resp 17 01/09/24 07:33 BP 133/78 01/09/24 07:33 Pulse Ox 97 01/09/24 07:33 FiO2 Intake & Output 01/08/24 01/09/24 01/09/24 18:59 06:59 18:59 Intake Total 540 Balance 540 Intake: Oral 540 Other: Voiding Method Toilet # Voids 3 1 - Exam No acute distress, oriented 3. Currently on room air. No acute distress. HEENT examination is grossly unremarkable. Mucous membranes are moist. No oral lesions. Neck supple. Full range of motion. No adenopathy thyromegaly or neck vein distention. Cardiovascular examination reveals regular rhythm rate. S1-S2 normal. No S3 or S4. No discernible murmur noted. Lungs reveal clear breath sounds. Breath sounds are equal bilaterally. No adventitious lung sounds including wheezes rhonchi or crackles. Abdomen soft bowel sounds are heard. No masses or tenderness. Extremities are intact. The left leg is wrapped. It is clearly edematous. No clubbing or cyanosis. Skin is without rash or lesion. There is cellulitis of the left lower extremity in the area is quite wrapped and there is still edema lower extremities bilaterally. Neurologic examination is brief but nonfocal. - Labs CBC & Chem 7: 01/07/24 04:37 01/07/24 04:37 Assessment and Plan Plan: Left lower extremity cellulitis, on daptomycin and cefepime that was switched to Zyvox as the patient developed an allergic skin reaction, clinically improving Allergic skin reaction/urticaria rash, likely drug induced, likely secondary to cephalosporin. Currently on Zyvox. The patient was treated with steroids and the patient's rash is essentially improved., This will be also completed on an outpatient basis 6.7 x 4.6 cm spiculated mass, left lower lobe, suspicious for lung cancer. Prior history of 20 years of tobacco use. Shortness of breath on exertion, may relate to underlying COPD. History of hypothyroidism. Mild transaminitis Obesity with a BMI of 31.1 Plan: Continue Zyvox, this will be continued on an outpatient basis Lasix 20 mg p.o. daily Management of the cellulitis per medicine PET scan outpatient basis Lung biopsy, preferably robotic to be done on an outpatient basis.
--- NOTE | 2024-01-11 12:57 | P.PN ---
Subjective Progress Note Date: 01/09/24 Principal diagnosis: Reason for follow-up is left lower extremity cellulitis and leukocytosis Patient is a 63-year-old male with a past medical history significant for thyroid disorder presenting to the hospital for evaluation of left lower extremity pain swelling and redness that has been going on for about 2 days before presentation to the hospital. On today's evaluation that is 01/09/2024,the patient denies any fever or any chills, patient is breathing comfortably on room air, the patient denies chest pain shortness of breath and no significant cough, patient denies abdominal pain, no nausea vomiting or diarrhea. Patient left lower extremity swelling redness is much improved feeling better and rash has decreased in intensity. No new lab has been obtained today Objective - Vital Signs Vital signs: Vital Signs Temp 97.8 F 01/09/24 07:33 Pulse 78 01/09/24 07:33 Resp 17 01/09/24 07:33 BP 133/78 01/09/24 07:33 Pulse Ox 97 01/09/24 07:33 FiO2 Intake & Output 01/08/24 01/09/24 01/09/24 18:59 06:59 18:59 Intake Total 540 Balance 540 Intake: Oral 540 Other: Voiding Method Toilet # Voids 3 1 - Exam GENERAL DESCRIPTION: An elderly male up in the chair in no distress RESPIRATORY SYSTEM: Unlabored breathing , decreased breath sounds at bases HEART: S1 S2 regular rate and rhythm , ABDOMEN: Soft , no tenderness EXTREMITIES: Left leg swelling redness has decreased in intensity no drainage rash to the trunk has decreased in intensity - Labs CBC & Chem 7: 01/07/24 04:37 01/07/24 04:37 Assessment and Plan (1) Left leg cellulitis Status: Acute Code(s): L03.116 - CELLULITIS OF LEFT LOWER LIMB SNOMED Code(s): 03406844707735434 (2) Leukocytosis Status: Acute Code(s): D72.829 - ELEVATED WHITE BLOOD CELL COUNT, UNSPECIFIED SNOMED Code(s): 387229198 (3) Rash Status: Acute Code(s): R21 - RASH AND OTHER NONSPECIFIC SKIN ERUPTION SNOMED Code(s): 723248678 Plan: 1patient presented hospital with extensive left lower extremity cellulitis in this patient noted to have diffuse swelling redness blister formation likely streptococcal cellulitis failing outpatient oral antibiotic therapy 2patient is afebrile left leg swelling as well as cellulitis has decreased in intensity he will finish therapy with oral Zyvox advised to continue with the calamine lotion to the back if he did have a problem with itching and a close outpatient follow-up multiple questions were answered Dictation was produced using [employer] software. please excuse any grammatical, word or spelling errors. Time with Patient: Less than 30
== END 2024-01-09 14:04 | disposition home or self-care (01) | DRG 602 ==
LOC: EC 13:49 → 4SSUR 16:07
PROVIDERS: ADMIT Hospitalist; ATTEND Hospitalist
DX: L03.116 Cellulitis of left lower limb (principal); J18.9 Pneumonia, unspecified organism; J44.0 Chronic obstructive pulmonary disease with (acute) lower respiratory infection; E87.1 Hypo-osmolality and hyponatremia; C34.32 Malignant neoplasm of lower lobe, left bronchus or lung; I87.8 Other specified disorders of veins; E03.9 Hypothyroidism, unspecified; E87.6 Hypokalemia; H26.9 Unspecified cataract; R74.01 Elevation of levels of liver transaminase levels; S80.822A Blister (nonthermal), left lower leg, initial encounter; Z79.890 Hormone replacement therapy; Z79.899 Other long term (current) drug therapy; Z87.891 Personal history of nicotine dependence; Z28.310 Unvaccinated for COVID-19; Z71.3 Dietary counseling and surveillance
CPT/HCPCS: 36415; 71046; 71275; 74177; 76705; 80048; 80053; 82565; 83605; 83735; 83880; 84100; 84145; 84484; 84520; 85025; 85610; 85730; 86140; 87040; 87070; 87205; 93005; 93306; 93970; 96365; 96366; 96367; 96372; 99285

== ENCOUNTER → 2024-01-25 | Outpatient (CLI) | payer MEDICARE, BC ==
--- NOTE | 2024-01-25 22:11 | PE ---
EXAMINATION TYPE: PET CT fusion skull to thigh DATE OF EXAM: 01/25/2024 CLINICAL INDICATION:Male, 63 years old with history of R91.8 Lung Mass; TECHNIQUE: Following the intravenous administration of 10.28 mCi of F-18 FDG, whole body images are performed from the skull base to the midthigh. Images are reviewed on the computer in the coronal, axial, and sagittal planes. Reconstructed rotating images are created on independent workstation and reviewed on the computer. A non-contrast CT is performed in conjunction with the PET scan. Glucose level 114 mg/dL CT DLP: 1137.55 mGycm, Automated exposure control for dose reduction was used. COMPARISON: CT 01/05/2024, 01/04/2024, PET/CT None, MRI: None FINDINGS: Mediastinal SUV mean is 2.2. Hepatic parenchyma SUV mean is 2.7. SKULL BASE AND NECK: No suspicious radiotracer activity. CHEST, MEDIASTINUM, AND HILAR REGION: Left lower lobe pulmonary mass measuring 7.7 x 5.9 cm with a maximum SUV of 21.5. This extends into t he hilar region. Previously measured 7.3 x 5.8 cm on prior CTA chest. Subcarinal 1.2 cm short axis lymph node with a maximum SUV of 5.2. ABDOMEN AND PELVIS: No suspicious radiotracer activity. MUSCULOSKELETAL STRUCTURES: There is focal radiotracer uptake at the inferior aspect of the T7 spinous process without CT correla te. Demonstrates a maximum SUV of 5.2. Favored to represent interspinous process inflammation. OTHER CT: Bilateral aphakia. Bilateral gynecomastia. Mildly enlarged heart. Surgical anchors within t he right humeral head. Degenerative changes of the visualized spine. Left SI joint degenerative lion es with anterior bridging. Degenerative changes of the pubic symphysis. IMPRESSION: 1. Marginal increase in size of left lower lobe markedly FDG avid 7.7 cm pulmonary mass. Most consist ent with primary lung malignancy. 2. Mildly enlarged subcarinal lymph node with mild FDG uptake. Raises concern for metastasis. [facility], , 01/25/2024 10:09 PM
== END | disposition home or self-care (01) ==
LOC: RADPETMAIN 07:13
PROVIDERS: ATTEND Internal Medicine Critical Care Medicine
DX: R91.8 Other nonspecific abnormal finding of lung field
CPT/HCPCS: 78815

== ENCOUNTER → 2024-02-08 | Day surgery (SDC) | payer MEDICARE, BC ==
[2024-02-06 11:49] VITALS: BMI 37.5
[~2024-02-08] MED LIST: LACTATED RINGERS 1,000 ML IV SCH; LIDOCAINE 1% (10MG/ML) FOR IV START INTRADERMA PRN; LIDOCAINE 1% INJ 10MG/ML (20 ML MDV) ONE; PROPOFOL 10 MG/ML 20 ML VIAL IV ONE; ROCURONIUM 10 MG/ML (5 ML VIAL) IV ONE; SUCCINYLCHOLINE CHLORIDE 200 MG/10 ML VIAL IV ONE; SUGAMMADEX SODIUM 200 MG/2 ML SDV IV ONE; fentaNYL (PF) 50 MCG/ML 2 ML AMP ONE
--- NOTE | 2024-02-08 13:43 | CT ---
EXAMINATION TYPE: CT chest wo con CT DLP: 913.30 mGycm, Automated exposure control for dose reduction was used. DATE OF EXAM: 02/08/2024 1:20 PM COMPARISON: PET CT 01/25/2024, CTA chest 01/04/2024. CLINICAL INDICATION:Male, 63 years old with history of R91.8 abnormal lung findings; [facility], TECHNIQUE: Multiple axial images were obtained through the chest without IV contrast. Lack of IV or o ral contrast limits evaluation of solid and hollow organ viscera. . Coronal and sagittal reformats re viewed. FINDINGS: LUNGS/ PLEURA: No pleural effusion or pneumothorax. No focal consolidation. Marginal increase in size of spiculated left lower lobe mass that extends into the perihilar region. Measures 7.9 x 6.4 cm, pr eviously 7.7 x 5.9 cm. Was FDG avid on recent PET/CT. This encases the left lower lobe bronchi. No ne w suspicious pulmonary nodules. Small left posterior medial fat filled Bochdalek hernia. AIRWAY: Patent and unremarkable.. HEART: Mildly prominent size. No pericardial effusion. MEDIASTINUM: Mildly enlarged pretracheal 1.0 cm lymph node short axis. Mildly enlarged 1 cm short axi s subcarinal lymph node. VASCULATURE: No aortic aneurysm. MUSCULOSKELETAL: No acute osseous abnormalities. Surgical anchors within the right humeral head. No a ggressive osseous lesion. Degenerative changes of the visualized spine with anterior hypertrophic aaron nges. SOFT TISSUES/LYMPH NODES: Bilateral gynecomastia. LOWER NECK: No significant findings. UPPER ABDOMEN: No significant findings. IMPRESSION: 1. Marginal increase in size of left lower lobe spiculated pulmonary mass measuring up to 7.9 cm, pre viously 7.7 cm. Demonstrated marked FDG activity in prior PET CT and is most consistent primary lung cancer. 2. Couple of mildly enlarged mediastinal lymph nodes suspicious for possible metastasis. [facility], , 02/08/2024 1:40 PM
[2024-02-08] MEDS: LACTATED RINGERS 1,000 ML IV SCH (14:12)
[2024-02-08] MEDS: ONDANSETRON 4 MG/2 ML VIAL IVP STA (14:13)
[2024-02-08] MEDS: DEXAMETHASONE SOD PHOSPHATE 4 MG/ML 1 ML VIAL IVP STA (14:13)
[2024-02-08] MEDS: LACTATED RINGERS 1,000 ML IV ONE (14:17)
--- NOTE | 2024-02-08 15:50 | FL ---
EXAMINATION TYPE: FL bronchoscopy DATE OF EXAM: 02/08/2024 3:47 PM COMPARISON: Pre Operative Images if available both CT/MRI or plain film CLINICAL INDICATION: Male, 63 years old with history of ABNORMAL LUNG FINDINGS; TECHNIQUE: FL bronchoscopy, multiple fluoroscopic images provided for procedure. Total fluoroscopy time: 86.2 seconds Total submitted images to PACS: 1 DAP: [id number] mGym2 Gycm2 uGym2 cGycm2 or equivalent. FINDINGS: ION bronchoscopy images demonstrate bronchoscope terminating in the lung. No immediate complications identified, no pneumothorax identified. IMPRESSION: 1. No evidence for intraoperative complication. 2. Please see the operative/procedural note for further details. [facility], , 02/08/2024 3:48 PM
--- NOTE | 2024-02-08 15:56 | P.PCN ---
Date of Procedure: 02/08/24 Operative Findings: Preoperative Diagnosis: Left lower lobe mass Mediastinal lymphadenopathy Postoperative Diagnosis: Left lower lobe mass Mediastinal lymphadenopathy Procedure(s) Performed: Flexible bronchoscopy Robotic-assisted bronchoscopy and radial ultrasound evaluation of the left lower lobe mass Robotic-assisted transbronchial needle aspirate, transbronchial biopsy, transbronchial brushing of the left lower lobe mass Endobronchial ultrasound transbronchial needle aspirate subcarinal station 10 lymph node Anesthesia: BERTINA Surgeon: Zak Zhu Estimated Blood Loss (ml): 0 Pathology: other Condition: stable Disposition: same day Operative Findings: A physical exam was performed. Informed consent was obtained from the patient after explaining all the risks (pneumothorax, life threatening bleeding, infection and adverse effects due to medications), benefits and alternatives to the procedure which the patient appeared to understand and so stated. The patient was connected to the monitoring devices. General anesthesia was induced and the patient was intubated by anesthesia. A final timeout was performed and the procedure confirmed by the attending staff bronchoscopist. The bronchoscope was inserted and the airway examined. Airway examination of the airway showed a normal distal trachea. Examination of the right side included the right mainstem bronchus, right upper lobe bronchus, right middle lobe bronchus and the right lower lobe bronchus and right side examination was within normal limits. Left mainstem bronchus was normal. Left upper lobe bronchus and the lingular segment was within normal limits. Then the bronchoscope was moved to the left lower lobe and the airway was being gradually tapered off. The superior segment was essentially atelectatic. The anterior lateral and posterior segments were then visualized. The posterior segment of the left lower lobe was also atelectatic. There was some mass effect from the left lower lobe mass causing extrinsic compression of this airways. No endobronchial tumor was identified. The flexible bronchoscope was removed and the robotic bronchoscope was inserted. Registration was completed. I next guided the robotic bronchoscope using the navigation system into the left lower lobe superior segment and later on into the various subsegment based on the guided navigation. Once in proper position, the bronchoscope was frozen. The radial EBUS probe was placed through the bronchoscope and confirmed abnormal u/s images vs normal lung. A needle was placed through the working channel and another fluoroscopic guidance, we sampled the area in the right upper lobe where the opacity was present. We then used a clot biopsy pattern with ultrasound confirmation for 2 additional passes with the needle. Following that, a forceps were next introduced through working channel and extended the appropriate distance and 3 transbronchial biopsies were performed using fluoroscopic guidance. The u/s probe was then reinserted to confirm location. When confirmed this process was repeated for a total of 8-10 transbronchial biopsies. After reassessment with EBUS, a brush was placed through the extendable working channel for 1 pass with fluoroscopic guidance. U/S evaluation was then used to confirm location. Following that, a total of 40 cc of saline was infused into the right upper lobe and approximately 8 to 10 cc of saline was aspirated and the bronchial lavage was sent for cytologic evaluation. Following that, I am bronchoscope was removed. The endobronchial ultrasound was inserted and a full evaluation of the mediastinal lymph nodes was done. At the level of the left lower lobe, along the medial wall of the left lower lobe bronchus, the left lower lobe mass was again identified posteriorly. This was a fairly large mass which was beyond the limits of ultrasonic examination with at least 4 cm in size. There was another 2 cm lymph node in this patient and and location. Using a 22-gauge Needle, transbronchial needle aspirate of the left lower lobe mass and station 10 lymph node was done. A total of 3 passes were obtained from each location. There was some bleeding encountered that stopped spontaneously. Therapeutic airway suctioning was done and the blood clots were essentially removed. Flex. bronchoscope was inserted and regular suctioning was done. At the completion of the procedure, no residual secretions or bloody material within the airway. The bronchoscope was removed. The patient was extubated. RECOMMENDATIONS: Await pathology and cytology results The referring physician will be alerted to the results when available. The patient was advised to follow up with the referring physician with the biopsy results Patient will be called with results.
[2024-02-08 15:59] VITALS: TEMP 97.5
--- NOTE | 2024-02-08 16:45 | XR ---
EXAMINATION TYPE: XR chest 1V DATE OF EXAM: 02/08/2024 4:17 PM CLINICAL INDICATION: Male, 63 years old with history of post bx; H COMPARISON: Chest radiographs from 01/03/2024 TECHNIQUE: XR chest 1V Frontal view of the chest. FINDINGS: Lungs/Pleura: Postbiopsy without evidence of pneumothorax. Low lung volumes are present. There is no evidence of pleural effusion, focal consolidation, or pneumothorax. Pulmonary vascularity: Unremarkable. Heart/mediastinum: Cardiomediastinal silhouette is unremarkable. Musculoskeletal: No acute osseous pathology. IMPRESSION: 1. No evidence for pneumothorax. 2. Scattered hazy opacities of the lungs possibly due to low lung lines. [facility], , 02/08/2024 4:42 PM
[2024-02-08 16:52] VITALS: RESP 16
[2024-02-08 17:06] VITALS: BP 107/61; PULSE 88
== END ==
LOC: ORWHC2ENDO 12:42
PROVIDERS: ATTEND Internal Medicine Critical Care Medicine
DX: R91.8 Other nonspecific abnormal finding of lung field (principal); R59.1 Generalized enlarged lymph nodes; E03.9 Hypothyroidism, unspecified; J44.9 Chronic obstructive pulmonary disease, unspecified; L03.90 Cellulitis, unspecified
CPT/HCPCS: 88305; 88342; 88341; 71045; 71250; 31628; 31629; 31623; 31652; J0330; J1100; J2405; J2003; J3010; J2704; S2900

== ENCOUNTER → 2024-02-28 | Outpatient (CLI) | payer MEDICARE, BC ==
--- NOTE | 2024-02-28 17:28 | MR ---
EXAMINATION TYPE: MR brain wo/w con DATE OF EXAM: 02/28/2024 4:53 PM COMPARISON: 01/25/2024. CLINICAL INDICATION: Male, 63 years old with history of C34.32 MALIGNANT NEOPLASM OF LOWER LOBE, LEFT BRON; PHH, Lung cancer TECHNIQUE: Multi planar, multi sequence imaging was performed through the brain including: T1, T2, In version recovery, susceptibility weighted imaging and gradient echo imaging and Diffusion weighted im aging. The patient was then given intravenous contrast and multi planar, T1 fat-saturation images wer e obtained. IV Contrast: 13 mL Gadobutrol FINDINGS: The nickerson-white junctions, ventricular system, basal cisterns appear unremarkable. Diffusion-weighted imaging shows no evidence of restricted diffusion to suggest acute/subacute infarct. Intracranial ar terial flow voids are maintained. Midline structures show no abnormality. Scattered foci of high T2 s ignal intensity are seen within the periventricular white matter. The susceptibility weighted images do not reveal any evidence for micro-hemorrhage. After administration of gadolinium, no abnormal enha ncement is seen. The bone marrow signal is within normal limits. Paranasal sinuses and mastoid air cells: No significant paranasal sinus disease. Visualized orbits: Orbital contents are intact. IMPRESSION: 1. No evidence of intracranial mass, acute/subacute infarct, or abnormal enhancement. 2. Minimal Nonspecific white matter changes, likely related to small vessel ischemic disease. [facility], , 02/28/2024 5:25 PM
== END | disposition home or self-care (01) ==
LOC: RADMRIMAIN 16:13
PROVIDERS: ATTEND Internal Medicine
DX: C34.32 Malignant neoplasm of lower lobe, left bronchus or lung (principal); R90.82 White matter disease, unspecified
CPT/HCPCS: 70553; A9585

== ENCOUNTER → 2024-06-20 | Outpatient (CLI) | payer MEDICARE ==
--- NOTE | 2024-06-24 08:41 | PE ---
EXAMINATION TYPE: PET CT fusion skull to thigh DATE OF EXAM: 06/20/2024 CLINICAL INDICATION:Male, 63 years old with history of C34.32 lung ca; TECHNIQUE: Following the intravenous administration of 10.98 mCi of F-18 FDG, whole body images are performed from the skull base to the Mid thigh. Images are reviewed on the computer in the coronal, axial, and sagittal planes. Reconstructed rotating images are created on independent workstation an d reviewed on the computer. A non-contrast CT is performed in conjunction with the PET scan. Glucos e level 91 mg/dL CT DLP: 1255 mGycm, Automated exposure control for dose reduction was used. COMPARISON: CT None, PET/CT 05/02/2024, MRI: None FINDINGS: Mediastinal SUV mean is 2.6. Hepatic parenchyma SUV mean is 4.9. SKULL BASE AND NECK: * Mild uptake within the posterior right trachea the level of vocal cords max SUV 7.4, previously 7. 8. Possibly physiologic. * thyroid gland uptake max SUV on the right 7.0 and the left 6.2. CHEST, MEDIASTINUM, AND HILAR REGION: * Left lower lobe mass max SUV 13.7, previously 21.52. Measuring 64 x 39 mm, previously 77 x 59 mm. The mass does extend to the pulmonary hilum. ABDOMEN AND PELVIS: No suspicious radiotracer activity. MUSCULOSKELETAL STRUCTURES: 1. Mild uptake in the medial aspect of the right shoulder max SUV 5.1 previously 5.7. 2. Uptake within the left anterior rib 6 anteriorly max SUV 5.[address]: Bilateral aphakia. Bilateral gynecomastia. Mildly enlarged heart. Surgical anchors within the right h umeral head. Degenerative changes of the visualized spine. Left SI joint degenerative changes with an terior bridging. Degenerative changes of the pubic symphysis. IMPRESSION: 1. Positive response to therapy with decrease in size and FDG activity of the left lower lobe mass. 2. Increased bilateral thyroid gland uptake correlate with serum markers. 3. Mild uptake within left anterior rib 6 correlate for history of trauma. If, no history of trauma this could represent metastatic disease. Attention follow-up imaging. 4. Mild presumably physiologic uptake within the trachea near the vocal cords right posterior aspect . [facility], , 06/24/2024 8:38 AM
== END | disposition home or self-care (01) ==
LOC: RADPETMAIN 13:04
PROVIDERS: ATTEND Internal Medicine Hematology & Oncology
DX: C34.32 Malignant neoplasm of lower lobe, left bronchus or lung (principal); R91.8 Other nonspecific abnormal finding of lung field; J38.3 Other diseases of vocal cords
CPT/HCPCS: 78815; A9552

== ENCOUNTER → 2024-07-19 | Outpatient (CLI) | payer MEDICARE ==
[2024-07-19 12:54] LABS: INR 0.9 (<1.2); Partial Thromboplastin Time 24.7 sec (22.0-30.0); Prothrombin Time 10.4 sec (10.0-12.5)
[2024-07-19 13:30] LABS: Appearance,Urine Clear (Clear); Bilirubin,Urine Negative (Negative); Blood,Urine Negative (Negative); Color,Urine Yellow; Glucose,Urine (UA) Negative (Negative); Ketones,Urine Negative (Negative); Leukocyte Esterase,Urine Negative (Negative); Nitrite,Urine Negative (Negative); Protein,Urine Negative (Negative); Specific Gravity,Urine 1.022 (1.001-1.035); Urobilinogen,Urine <2.0 mg/dL (<2.0)
[2024-07-19 16:24] LABS: Basophils # (A) 0.07 X 10*3/uL (0.00-0.10); Basophils % (A) 0.8 %; Eosinophils # (A) 0.27 X 10*3/uL (0.04-0.35); Eosinophils % (A) 3.1 %; HCT 29.4 % (39.6-50.0); HGB 9.5 g/dL (13.0-17.0); Lymphocytes # (A) 2.24 X 10*3/uL (0.90-5.00); Lymphocytes % (A) 25.7 %; MCHC 32.3 g/dL (32.0-37.0); MCV 102.1 FL (80.0-97.0); Mean Platelet Volume 11.3 FL (9.5-12.2); Monocytes # (A) 0.89 X 10*3/uL (0.20-1.00); Monocytes % (A) 10.2 %; NRBC Per 100 WBC 0 X 10*3/uL (0.00-0.01); Neutrophils # (A) 5.19 X 10*3/uL (1.80-7.70); Neutrophils % (A) 59.7 %; Platelet Count 259 X 10*3/uL (140-440); RBC 2.88 X 10*6/uL (4.40-5.60); RDW 17.5 % (11.5-14.5)
[2024-07-19 16:31] LABS: Blood Urea Nitrogen 27.6 mg/dL (9.0-27.0); Carbon Dioxide 25.3 mmol/L (21.6-31.8); Chloride 105 mmol/L (96-109); Glucose 102 mg/dL (70-110); Potassium 4.5 mmol/L (3.5-5.5); Sodium 141 mmol/L (135-145)
== END | disposition home or self-care (01) ==
LOC: LABPAT 11:33
PROVIDERS: ATTEND Thoracic Surgery (Cardiothoracic Vascular Surgery)
DX: Z01.818 Encounter for other preprocedural examination (principal); Z79.899 Other long term (current) drug therapy; R58 Hemorrhage, not elsewhere classified; I48.91 Unspecified atrial fibrillation
CPT/HCPCS: 80051; 81003; 82565; 82947; 84520; 85025; 85610; 85730; 86850; 86900; 86901; 87086; 93005

== ENCOUNTER 2024-07-25 06:40 | Inpatient (IN) | payer MEDICARE ==
[2024-07-25] MEDS ORDERED: LACTATED RINGERS 1,000 ML IV SCH (07:02)
[2024-07-25] MEDS ORDERED: LIDOCAINE 1% (10MG/ML) FOR IV START INTRADERMA PRN (07:02)
[2024-07-25] MEDS ORDERED: DEXAMETHASONE SOD PHOSPHATE 4 MG/ML 1 ML VIAL IV ONE (07:02)
[2024-07-25] MEDS ORDERED: HYDROmorphone 0.5 MG/0.5 ML SYRINGE IVP PRN (07:02)
[2024-07-25] MEDS ORDERED: ONDANSETRON 4 MG/2 ML VIAL IVP ONE (07:02)
[2024-07-25] MEDS: IV FLUID CONTINUATION 1,000 ML IV ONE ×2 (07:43)
[2024-07-25] MEDS: ONDANSETRON 4 MG/2 ML VIAL IVP ONE (07:48)
[2024-07-25] MEDS: LACTATED RINGERS 1,000 ML IV SCH (07:49)
[2024-07-25] MEDS: MIDAZOLAM 2 MG/2 ML VIAL IV ONE (08:02)
--- NOTE | 2024-07-25 08:25 | P.ANPRN ---
Procedure Note - Anesthesia - Nerve Block Performed Left Erector Spinae Single Time Out Performed: Yes Date of Procedure: 07/25/24 Procedure Start Time: : Procedure Stop Time: : Location of Patient: PreOp Indication: Acute Post-Operative Pain, Requested by Surgeon Sedation Type: Sedate with meaningful contact maintained Preparation: Sterile Prep Position: Sitting Needle Types: Pajunk Needle Gauge: 21 Ultrasound used to visualize needle placement: Yes Ultrasound used to observe medication spread: Yes Injectate: 0.5% Ropivacaine (see comment for volume) (30 ml + 4 mg Dexamethasone) Blood Aspirated: No Pain Paresthesia on Injection Noted: No Resistance on Injection: Normal Image Stored and Saved: Yes Events: Uneventful and Well Tolerated
--- NOTE | 2024-07-25 08:28 | P.ANPRN ---
Procedure Note - Anesthesia - Invasive Line Right Arterial Line Time Out Performed: Yes Date of Procedure: 07/25/24 Time of Procedure: 08:12 Location of Patient: PreOp Preparation: Sterile Prep, Sterile Dressing Arterial Line Location: Radial Ultrasound Used: No Purpose - Visualization and Identification of Vasculature: No Needle Guage: 20 Image Stored and Saved: Yes Narrative: Invasive line placement per sterile protocol utilized.
[2024-07-25] MEDS ORDERED: SUCCINYLCHOLINE CHLORIDE 200 MG/10 ML VIAL IV ONE (09:02)
[2024-07-25] MEDS ORDERED: PROPOFOL 10 MG/ML 20 ML VIAL IV ONE (09:02)
[2024-07-25] MEDS ORDERED: PHENYLEPHRINE-0.9% NACL SYG 1,000 MCG/10 ML SYRINGE ONE (09:02)
[2024-07-25] MEDS ORDERED: MIDAZOLAM 2 MG/2 ML VIAL ONE (09:02)
[2024-07-25] MEDS ORDERED: NEOSTIGMINE 1 MG/ML 10 ML VIAL ONE (09:02)
[2024-07-25] MEDS ORDERED: ROCURONIUM 10 MG/ML (5 ML VIAL) IV ONE (09:02)
[2024-07-25] MEDS ORDERED: GLYCOPYRROLATE 0.2 MG/ML 2 ML VIAL ONE (09:02)
[2024-07-25] MEDS ORDERED: DEXAMETHASONE SOD PHOSPHATE 4 MG/ML 1 ML VIAL ONE (09:02)
[2024-07-25] MEDS ORDERED: LIDOCAINE 1% INJ 10MG/ML (20 ML MDV) ONE (09:02)
[2024-07-25] MEDS ORDERED: PHENYLEPHRINE 10 MG/ML VIAL ONE (09:02)
[2024-07-25] MEDS ORDERED: fentaNYL (PF) 50 MCG/ML 2 ML AMP ONE (09:02)
[2024-07-25] MEDS ORDERED: ACETAMINOPHEN IV (For NPO) 1,000 MG/100 ML VIAL ONE (09:02)
[2024-07-25] MEDS ORDERED: ROPIVACAINE 5 MG/ML 30 ML VIAL ONE (09:02)
[2024-07-25] MEDS: ceFAZolin 3 GM in SODIUM CHLORIDE 0.9% 100 ML IVPB PRN (09:07)
--- NOTE | 2024-07-25 14:37 | P.OP ---
Date of Procedure: 07/25/24 Preoperative Diagnosis: Lung cancer, left lower lobe, status post induction therapy Postoperative Diagnosis: Same, tumor extended into left upper lobe Procedure(s) Performed: Left thoracoscopy with attempted robotic left lower lobectomy, left thoracotomy with left pneumonectomy, mediastinal lymph node dissection, cryoablation of intercostal nerves Implants: 0 Anesthesia: GETA Surgeon: Virgilio Naranjo Insulation Cutter And Former #1: Nikki Smith Estimated Blood Loss (ml): 400 IV fluids (ml): 800 Urine output (ml): 500 Pathology: other (Left long with frozen section of bronchial margin negative; lymph node stations L11, L10, L9, L8, L5, level 7) Condition: stable Disposition: PACU Indications for Procedure: 64-year-old male with large central left lung carcinoma who underwent induction chemotherapy to reduce the size in [place] of the tumor with reasonable response. He was scheduled for elective left lower lobectomy. Was discussed with the patient and his family that there was a reasonable likelihood we would need to progress to open thoracotomy if it was very stuck or very central still inside the hilum of the lung. Pulmonary function was good. Operative Findings: There was marked hypervascularity of the pleura particularly in the lower lobe. The fissure was very stuck. The hilum was also hypervascular and stuck. After fairly prolonged dissection with successful division of the inferior pulmonary vein and lower lobe bronchus, could not really progress to the pulmonary artery branches to the lower lobe due to extensive tumor. Biopsy of abnormal appearing L10 lymph nodes for frozen section were positive for poorly differentiated adenocarcinoma. At that point we proceeded to thoracotomy. I thoracotomy it was evident that the tumor was more extensive than previously anticipated and extended very deeply into the upper lobe. It was decided at that point to progress to pneumonectomy. This proceeded uneventfully. On removal of the lung there was evidence of markedly enlarged lymph nodes in the L5 and L8 regions. The L8 lymph nodes appeared grossly consistent with metastatic disease. These were all resected. On completion of the surgery, there was no evidence of remaining gross disease. Bronchial stump was intact and there was no evidence of air leak. Description of Procedure: Patient was brought to the operating room and placed supine on the operating table. General anesthesia was induced. He was intubated with a double-lumen endotracheal tube. This was positioned with fiberoptic bronchoscopy. Bronchoscopy demonstrated tumor in the left lower lobe at the level of the subsegmental bronchus. Left lower lobe and mainstem bronchus were free of tumor. Tube was positioned appropriately and secured. The patient was turned to the lateral decubitus position and appropriately positioned for right sided robotic lung surgery. Left chest was sterilely prepped and draped. Elliptical incision was made in the anterior axillary line in the ninth interspace. Single lung ventilation was initiated and an 8 mm robotic port was placed. After confirming presence in the pleural space, CO2 insufflation was begun. 12 mm meter ports were placed anterior and posterior to the first port and a second 8 mm port was placed posteriorly at the level of the superior segment of the left lower lobe. Working port was placed at the level of the diaphragm anteriorly. The robot was docked. Chest was explored. The lung pleura had hypervascularity particularly of the lower lobe. The fissure was densely adherent. Attempts to dissected within it were not successful. The inferior pulmonary ligament was taken down and dissection carried onto the inferior pulmonary vein. L9 lymph nodes were resected and sent for permanent section. Posterior pleural reflection was densely adherent at the level of the hilum. We encircled the inferior pulmonary lymph vein and ligated and divided it without difficulty. Dissection was carried onto the bronchus. There was extensive L10 adenopathy some of which appeared fairly normal and some of which appeared highly abnormal. This was resected and a portion of the abnormal nodes were sent for frozen section. This returned positive for metastatic adenocarcinoma. The continued dissection around along the mainstem bronchus and encircled the lower lobe bronchus. Level 11 lymph node was resected. This was ligated and divided with a robotic green stapler. Behind the bronchus was dense adenopathy we were not able to safely dissect through this to the pulmonary artery. Dissection was carried again posteriorly and we attempted to free up the pleural reflection. Again we ran into dense adenopathy. At this point it was decided to proceed to open thoracotomy. Ports were removed and the robot was undocked. Posterior lateral thoracotomy incision was performed. Latissimus muscle was divided. Serratus muscle was mobilized and retracted anteriorly. Chest was entered in the fifth interspace and the intercostal muscles of the fifth interspace where undercut anteriorly and posteriorly to allow ramp spreading. Richard retractor was placed on the chest was explored. It immediately became evident that the tumor was far more extensive than previously anticipated. It extended well up into the upper lobe across the fissure which was why the fissure was so densely adherent. Was decided at this point to proceed to be pneumonectomy. Superior pulmonary vein was mobilized and ligated and divided with vascular stapler. Next the mainstem bronchus was dissected out the level 7 lymph nodes was resected. Mainstem bronchus was encircled and ligated and divided just distal to the milli with a medium thick stapler. We are now able to easily dissect around the main pulmonary artery and ligated and divided with the vascular stapler. Pneumonectomy specimen was removed and sent for frozen section of the bronchial margin which returned negative. We completed the dissection of the mediastinal lymph nodes first resecting the level 5 nodes which were quite enlarged and otherwise normal in appearance. There was extensive adenopathy of the L6 and L8 region over the esophagus in the hilar region which was suspicious for metastatic disease and was aggressively debrided. The specimen was sent as L8 lymph nodes. On completion the entire hilar bed and mediastinum appeared free of any gross disease. Cryoablation was performed of the posterior intercostal nerves at levels 3456 and 7 on the left. AtriCure cryoprobe was used for this. Meticulous hemostasis was performed of the chest was irrigated with warm water. There was no evidence of air leak from the bronchial stump. 16 red rubber was placed in the chest cavity and brought out on the side of the patient. The ribs were reapproximated with #1 Vicryl. Muscle layers closed with 0 Vicryl. Subcutaneous tissue closed with 2-0 Vicryl. Skin was closed with skin clips. The robotic incisions were likewise closed with layers of Vicryl suture and skin clips. Dry sterile dressings were applied. The patient was turned supine on the bed. The red rubber catheter was evacuated of air until the patient began to develop evidence of mild tension on the art line. At that point some air was reinjected in the red rubber catheter and it was removed. Dry sterile dressing was applied. Patient was awakened and transferred to recovery in stable condition.
[2024-07-25] MEDS: PHENYLEPHRINE-0.9% NACL SYG 1,000 MCG/10 ML SYRINGE IVP ONE ×3 (14:48→15:52)
[2024-07-25] MEDS: ALBUMIN HUMAN 5% 250 ML in EMPTY BAG 1 BAG IVPB STA (14:50)
[2024-07-25] MEDS: HYDROmorphone 0.5 MG/0.5 ML SYRINGE IVP PRN (14:55)
[2024-07-25] MEDS: LACTATED RINGERS 1,000 ML IV ONE (14:56)
--- NOTE | 2024-07-25 14:58 | XR ---
EXAMINATION TYPE: XR chest 1V portable DATE OF EXAM: 07/25/2024 CLINICAL INDICATION: Male, 64 years old with history of post pneumonectomy, progress study. TECHNIQUE: Single AP portable upright view of the chest is obtained. COMPARISON: PET CT June 20, 2024 FINDINGS: There is surgical change to the left lung with large pleural air filled cavity after total pneumonectomy. Overlying skin kishore are seen. There is subcutaneous emphysema extending into the l eft neck. Right lung shows emphysematous change otherwise is clear. There is slight left-sided volume loss with mediastinal shift and elevated left hemidiaphragm now seen. Cardiac silhouette size upper limits of normal. Surgical clips left hilar region are present. Osseous structures are intact. IMPRESSION: New left-sided total pneumonectomy surgical changes. Right lung remains clear. [facility], , 07/25/2024 2:56 PM
[2024-07-25] MEDS ORDERED: bisacodyL 10 MG SUPP RECTAL PRN (15:22)
[2024-07-25] MEDS ORDERED: IPRATROPIUM-ALBUTEROL 3 ML NEB IH PRN (15:22)
[2024-07-25] MEDS ORDERED: Magnesium Replacement Protocol 1 EACH MISC MISCELLANE PRN (15:22)
[2024-07-25] MEDS ORDERED: Potassium Replacement Protocol 1 EACH MISC MISCELLANE PRN (15:22)
[2024-07-25] MEDS ORDERED: ONDANSETRON 4 MG/2 ML VIAL IVP PRN (15:22)
[2024-07-25] MEDS: PHENYLEPHRINE 40 MG in SODIUM CHLORIDE 0.9% 250 ML IV SCH (15:56)
[2024-07-25] MEDS ORDERED: NALOXONE 0.4 MG/ML 1 ML VIAL IV PRN (15:58)
--- NOTE | 2024-07-25 15:58 | P.ANPRN ---
Procedure Note - Anesthesia - Epidural/Spinal Epidural Continuous Time Out Performed: Yes Date of Procedure: 07/25/24 Procedure Start Time: 15:38 Procedure Stop Time: 15:49 Location of Patient: Phase I Indication: Acute Post-Operative Pain Sedation Type: Sedate with meaningful contact maintained Preparation: Sterile Dressing Position: Sitting Catheter: Indwelling Needle Guage: 18 Blood Aspirated: No Pain Paresthesia on Injection Noted: No Events: Uneventful and Well Tolerated (xlo 1.5% plus epi 3 cc given with no adverse reaction)
[2024-07-25 15:59] LABS: HCT 26.5 % (39.6-50.0); MCH 33.7 pg (27.0-32.0); MCV 99.3 fL (80.0-97.0); Mean Platelet Volume 10.3 fL (9.5-12.2); Platelet Count 279 10*3/uL (140-440); RBC 2.67 10*6/uL (4.40-5.60); RDW 16.1 % (11.5-14.5); WBC 16.18 10*3/uL (4.50-10.00)
[2024-07-25] MEDS: ROPIVACAINE 250 MG, HYDROMORPHONE (PF) 5 MG in SODIUM CHLORIDE 0.9% 200 ML EPIDURAL PRN (17:05)
[2024-07-25 17:28] LABS: Glucose,Whole Blood 130 mg/dL (70-110)
[2024-07-25] MEDS: IPRATROPIUM-ALBUTEROL 3 ML NEB IH SCH (17:32)
[2024-07-25] MEDS: DEXTROSE 5%-0.45% NACL 1,000 ML IV SCH (17:38)
[2024-07-25] MEDS: ceFAZolin 3 GM in SODIUM CHLORIDE 0.9% 100 ML IVPB SCH (17:38)
[2024-07-25] MEDS: HEPARIN SODIUM,PORCINE 5,000 UNIT/ML 1 ML VIAL SQ SCH (17:51)
[2024-07-25] MEDS: traMADol 50 MG TAB PO PRN (19:15)
[2024-07-25] MEDS: DEXAMETHASONE SOD PHOSPHATE 4 MG/ML 1 ML VIAL IV ONE (19:22)
[2024-07-25] MEDS: FORMOTEROL FUMARATE 20 MCG/2 ML NEBU INHALATION SCH (19:51)
[2024-07-25 19:59] LABS: HCT 28.4 % (39.6-50.0); HGB 9.4 g/dL (13.0-17.0); MCH 33.1 pg (27.0-32.0); MCHC 33.1 g/dL (32.0-37.0); Mean Platelet Volume 10.1 fL (9.5-12.2); Platelet Count 299 10*3/uL (140-440); RBC 2.84 10*6/uL (4.40-5.60); RDW 16.2 % (11.5-14.5); WBC 16.38 10*3/uL (4.50-10.00)
[2024-07-25] MEDS: SENNOSIDES 8.6 MG TAB PO SCH (20:11)
[2024-07-25] MEDS: LEVOTHYROXINE 100 MCG TAB PO SCH (20:11)
[2024-07-25 23:59] LABS: HCT 27.9 % (39.6-50.0); HGB 9.3 g/dL (13.0-17.0); MCH 33.5 pg (27.0-32.0); MCHC 33.3 g/dL (32.0-37.0); MCV 100.4 fL (80.0-97.0); Mean Platelet Volume 10.1 fL (9.5-12.2); Platelet Count 291 10*3/uL (140-440); RBC 2.78 10*6/uL (4.40-5.60); RDW 16.2 % (11.5-14.5); WBC 13.48 10*3/uL (4.50-10.00)
[2024-07-26] MEDS: PANTOPRAZOLE 40 MG TABLET PO SCH (05:32)
[2024-07-26 05:47] LABS: Basophils # (A) 0.05 10*3/uL (0.00-0.10); Basophils % (A) 0.4 %; Eosinophils # (A) 0.04 10*3/uL (0.04-0.35); Eosinophils % (A) 0.3 %; HCT 28.4 % (39.6-50.0); HGB 9.4 g/dL (13.0-17.0); Lymphocytes # (A) 2.15 10*3/uL (0.90-5.00); Lymphocytes % (A) 16.8 %; MCH 33.3 pg (27.0-32.0); MCHC 33.1 g/dL (32.0-37.0); MCV 100.7 fL (80.0-97.0); Mean Platelet Volume 10.3 fL (9.5-12.2); Monocytes # (A) 1.41 10*3/uL (0.20-1.00); Neutrophils # (A) 9.09 10*3/uL (1.80-7.70); Neutrophils % (A) 70.9 %; Platelet Count 328 10*3/uL (140-440); RBC 2.82 10*6/uL (4.40-5.60); RDW 16.3 % (11.5-14.5); WBC 12.82 10*3/uL (4.50-10.00)
[2024-07-26 06:00] LABS: African American GFR (CKD) >90 (>60 ml/min/1.73 sqM); Anion Gap 7 mmol/L; Blood Urea Nitrogen 24 mg/dL (9-20); Calcium 8.3 mg/dL (8.4-10.2); Carbon Dioxide 27 mmol/L (22-30); Chloride 101 mmol/L (98-107); Glucose 121 mg/dL (74-99); Non-African American GFR(CKD) 81 (>60 ml/min/1.73 sqM); Potassium 4.5 mmol/L (3.5-5.1); Sodium 135 mmol/L (137-145)
--- NOTE | 2024-07-26 07:34 | P.PN ---
Progress Note - Text 07/26/24 711am -year-old male status post open thoracotomy. Patient has an epidural catheter for postop pain control with a solution running at 5 cc an hour with a VAS of 3, dressing clean dry and intact. I asked the nurse to increase the rate to 7 cc an hour
--- NOTE | 2024-07-26 07:48 | XR ---
EXAMINATION TYPE: XR chest 1V DATE OF EXAM: 07/26/2024 5:29 AM COMPARISON: Chest radiographs from 07/25/2024 CLINICAL INDICATION: Male, 64 years old with history of post pneumonectomy; [facility] TECHNIQUE: XR chest 1V Frontal view of the chest. FINDINGS: Lungs/Pleura: Left pneumothorax with surgical clips present. There is no evidence of pleural effusion , focal consolidation, or pneumothorax. Pulmonary vascularity: Unremarkable. Heart/mediastinum: Cardiomediastinal silhouette is unremarkable. Musculoskeletal: No acute osseous pathology. Other findings: Subcutaneous emphysema scattered throughout the visualized left chest wall and left n felicitas. Left chest wall since skin kishore. IMPRESSION: Similar left pneumothorax with subcutaneous gas along the left neck. Thoracotomy tubes is not visuali zed. [facility], , 07/26/2024 7:45 AM
[2024-07-26] MEDS: ZINC SULFATE 220 MG CAP PO SCH (08:28)
[2024-07-26] MEDS: MULTIVITAMINS, THERA 1 EACH TAB PO SCH (08:28)
--- NOTE | 2024-07-26 08:42 | P.PN ---
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 History of hypothyroid, pneumonia in 2023, left lower extremity cellulitis, anemia, and previous tobacco dependence POD #1 left thoracoscopy with attempted robotic left lower lobectomy, left thoracotomy with left pneumonectomy, mediastinal lymph node dissection, cryoablation of intercostal nerves The patient was seen and examined this morning sitting up in recliner in the intensive care unit in no acute distress. Remains in sinus rhythm, hemodynamically stable on no inotropes or pressors. He was on Randell-Synephrine after OR for few hours for marginal blood pressure, however he has recovered nicely and has been off randell since 10:30 PM last night. Currently on 2 L nasal cannula with oxygen saturation in the high 90s. Able to achieve 2000 mL on his incentive spirometry. Epidural in place, patient states the epidural along with occasional tramadol has been working nicely for his pain. Chest x-ray, labs reviewed. No other new concerns. Objective - Vital Signs Vital signs: Vital Signs Temp 98.7 F 07/26/24 05:00 Pulse 104 H 07/26/24 08:07 Resp 18 07/26/24 07:00 BP 116/68 07/26/24 06:15 Pulse Ox 96 07/26/24 07:53 FiO2 Intake & Output 07/25/24 07/26/24 07/26/24 18:59 06:59 18:59 Intake Total 2977.478 2330.237 Output Total 735 1105 Balance 2242.478 1225.237 Weight 131.1 kg 129.954 kg Intake: IV 2800 Intake, IV Titration 177.478 830.237 Amount Dextrose 5%-0.45% NaCl 1, 50 600 000 ml @ 50 mls/hr IV . Q20H [facility] Rx#:[id number] Lactated Ringers 1,000 ml 20 100 @ 20 mls/hr IV .Q24H [facility] Rx#:[id number] Phenylephrine 40 mg In 7.478 30.237 Sodium Chloride 0.9% 250 ml @ 0.5 MCG/KG/MIN 24. 384 mls/hr IV .[id number] [facility] Rx#:[id number] ceFAZolin 3 gm In Sodium 100 100 Chloride 0.9% 100 ml @ 200 mls/hr IVPB Q8HR [facility] Rx#:[id number] Oral 1500 Output: Urine 435 1105 Estimated Blood Loss 300 Other: Voiding Method Indwelling Catheter Indwelling Catheter ABP, PAP, CO, CI - Last Documented Arterial Blood Pressure 128/55 - Exam CONSTITUTIONAL: Appears comfortable, cooperative, no acute distress RESPIRATORY: Lungs sounds diminished on the left. Respirations even, nonla bored. Currently on 2 L nasal cannula with oxygen saturation 98%. Able to achieve 2000 mL on incentive spirometry. Strong cough. CARDIOVASCULAR: S1, S2 present. Regular rate and rhythm, sinus rhythm on telemetry. Palpable peripheral pulses bilaterally. No edema present. No calf pain or tenderness noted. SCDs present. GASTROINTESTINAL: Abdomen soft, nontender, nondistended. Active bowel sounds present 4 quadrants. Tolerating diet. GENITOURINARY: Benitez present draining clear, yellow urine. Output 50 to 100 mL/h overnight INTEGUMENTARY: Skin is warm and dry with evidence of good perfusion. Thoracic incision well approximated and covered with dry intact dressing. NEUROLOGIC: Cranial nerves II through XII intact MUSKULOSKELETAL: Able to move all extremities, strength equal bilaterally, gait normal PSYCHIATRIC: Alert and oriented to person place and time, appropriate affect, intact judgment and insight - Allied health notes Allied health notes reviewed: nursing - Labs CBC & Chem 7: 07/26/24 05:19 07/26/24 05:19 Labs: Abnormal Lab Results - Last 24 Hours (Table) 07/19/24 07/25/24 07/25/24 Range/Units 11:54 15:29 17:27 WBC 16.18 H (4.50-10.00) 10*3/uL RBC 2.67 L (4.40-5.60) 10*6/uL Hgb 9.0 L (13.0-17.0) g/dL Hct 26.5 L (39.6-50.0) % MCV 99.3 H (80.0-97.0) fL MCH 33.7 H (27.0-32.0) pg Immature Gran # (0.00-0.04) 10*3/uL Neutrophils # (1.80-7.70) 10*3/uL Monocytes # (0.20-1.00) 10*3/uL Sodium (137-145) mmol/L BUN (9-20) mg/dL Glucose (74-99) mg/dL POC Glucose (mg/dL) 130 H (70-110) mg/dL Calcium (8.4-10.2) mg/dL Crossmatch See Detail 07/25/24 07/25/24 07/26/24 Range/Units 19:38 23:00 05:19 WBC 16.38 H 13.48 H (4.50-10.00) 10*3/uL RBC 2.84 L 2.78 L (4.40-5.60) 10*6/uL Hgb 9.4 L 9.3 L (13.0-17.0) g/dL Hct 28.4 L 27.9 L (39.6-50.0) % MCV 100.0 H 100.4 H (80.0-97.0) fL MCH 33.1 H 33.5 H (27.0-32.0) pg Immature Gran # (0.00-0.04) 10*3/uL Neutrophils # (1.80-7.70) 10*3/uL Monocytes # (0.20-1.00) 10*3/uL Sodium 135 L (137-145) mmol/L BUN 24 H (9-20) mg/dL Glucose 121 H (74-99) mg/dL POC Glucose (mg/dL) (70-110) mg/dL Calcium 8.3 L (8.4-10.2) mg/dL Crossmatch 07/26/24 Range/Units 05:19 WBC 12.82 H (4.50-10.00) 10*3/uL RBC 2.82 L (4.40-5.60) 10*6/uL Hgb 9.4 L (13.0-17.0) g/dL Hct 28.4 L (39.6-50.0) % MCV 100.7 H (80.0-97.0) fL MCH 33.3 H (27.0-32.0) pg Immature Gran # 0.08 H (0.00-0.04) 10*3/uL Neutrophils # 9.09 H (1.80-7.70) 10*3/uL Monocytes # 1.41 H (0.20-1.00) 10*3/uL Sodium (137-145) mmol/L BUN (9-20) mg/dL Glucose (74-99) mg/dL POC Glucose (mg/dL) (70-110) mg/dL Calcium (8.4-10.2) mg/dL Crossmatch - Imaging and Cardiology Chest x-ray: report reviewed, image reviewed Assessment and Plan Assessment: Lung cancer, left lower lobe, biopsy positive 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 Bronchodilators per pulmonology Increase activity, ambulate as tolerated Will monitor daily labs and x-rays, electrolyte replacement per protocol Pain control per current medication regimen Final pathology pending GI/DVT prophylaxis More recommendations to follow as patient progresses
[2024-07-26] MEDS: METOCLOPRAMIDE 5 MG/ML 2 ML VIAL IVP STA (11:00)
[2024-07-26] MEDS: METOPROLOL TARTRATE 12.5 MG TAB PO SCH ×2 (11:01→15:48)
--- NOTE | 2024-07-26 13:46 | P.CNPUL ---
History of Present Illness Consult date: 07/26/24 Requesting physician: Virgilio Naranjo Reason for consult: other (Status post pneumonectomy) Chief complaint: Status post pneumonectomy History of present illness: This is a 64-year-old white male who was initially seen by Dr. Grubbs on 01/04/2024, patient had a CT of the chest at that time showing a 6.7 x 4.6 cm mass in the left lower lobe. Patient had at least a 55-[id number]-[id number] smoking history, although he quit years ago, at that time the patient also had left lower extremity cellulitis which was treated with daptomycin and cefepime by infectious disease. Since that admission patient had outpatient follow-up with Dr. 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 Needle aspirations were negative. Patient received chemotherapy by medical oncology, recent PET scan showed left lower lobe mass, SUV 13.7 previously 21.5 and the mass was noted to extend to the pulmonary hilum. Patient was referred to Dr. Naranjo he is now post induction therapy and felt that the PET scan showing the increase in the size of the tumor with no evidence of other metastatic lesions hence the plan was to perform left lower lobectomy however on 07/25 patient underwent left thoracotomy with attempted robotic left lower lobectomy left thoracotomy with left pneumonectomy mediastinal lymph node dissection, cryoablation of intercostal nerves, it was felt that the patient extended into the left upper lobe. And that is the reason required thoracotomy and pneumonectomy. Postoperatively patient was admitted to the ICU, and I was asked to see him in consultation. Review of Systems REVIEW OF SYSTEMS: CONSTITUTIONAL: Negative. EYES: Negative. ENT: Negative. CARDIAC: Negative. PULMONARY: As above. GI: Negative. GENITOURINARY: Negative. MUSCULOSKELETAL: Negative. SKIN: Negative. NEUROPSYCH: Negative. ENDOCRINE: Negative. HEMATOLOGIC: Negative. Past Medical History Past Medical History: Cancer, Pneumonia, Thyroid Disorder Additional Past Medical History / Comment(s): Hx. PNEUMONIA 2023, hx. LLE CELLULITIS-resolved, CANCER TO LEFT LUNG dx. 2023-did chemo & immunotherapy- finished 1 month ago History of Any Multi-Drug Resistant Organisms: None Reported Past Surgical History: Orthopedic Surgery Additional Past Surgical History / Comment(s): cataracts removed, RT ROTATOR CUFF REPAIR, COLONOSCOPY, bronchoscopy Past Anesthesia/Blood Transfusion Reactions: No Reported Reaction Smoking Status: Former smoker - Past Family History Mother Family Medical History: No Reported History Medications and Allergies Home Medications Medication Instructions Recorded Confirmed Type Glucosam/Artem-Msm1/C/Antoni/Bosw 1 tab PO DAILY 12/30/23 07/25/24 History [Glucosamine-Chondroitin Tablet] Levothyroxine Sodium [Synthroid] 100 mcg PO HS 12/30/23 07/22/24 History Multivit-Mins/Iron/Folic/Lycop 1 tab PO DAILY 12/30/23 07/25/24 History [Centrum Men's Tablet] Warner-3/Dha/Epa/Fish Oil [Fish Oil 1 cap PO DAILY 12/30/23 07/25/24 History 1,000 mg Softgel] Zinc Gluconate [Zinc] 50 mg PO DAILY 12/30/23 07/25/24 History Quercetin 1,000 mg PO DAILY 07/22/24 07/25/24 History Allergies Allergy/AdvReac Type Severity Reaction Status Date / Time No Known Allergies Allergy Verified 07/25/24 07:07 Physical Exam Vitals: Vital Signs Temp Pulse Pulse Pulse Resp BP BP 07/26/24 13:00 108 H 11 L 124/105 07/26/24 12:06 104 H 07/26/24 12:00 98 F 106 H 20 120/79 07/26/24 11:51 104 H 07/26/24 11:00 102 H 9 L 119/74 07/26/24 10:00 105 H 15 107/63 07/26/24 09:00 98 7 L 106/70 07/26/24 08:07 104 H 07/26/24 08:00 103 H 9 L 102/62 07/26/24 07:58 103 H 07/26/24 07:57 103 H 07/26/24 07:53 07/26/24 07:48 104 H 07/26/24 07:00 101 H 18 07/26/24 06:45 96 18 07/26/24 06:30 100 18 07/26/24 06:15 96 18 116/68 07/26/24 06:00 100 22 07/26/24 05:45 98 25 H 07/26/24 05:30 104 H 25 H 07/26/24 05:15 100 21 07/26/24 05:00 98.7 F 111 H 20 107/62 07/26/24 04:45 110 H 20 07/26/24 04:30 98 19 07/26/24 04:15 98 18 107/77 07/26/24 04:00 97 94 18 07/26/24 03:45 98 9 L 07/26/24 03:30 98 9 L 07/26/24 03:15 100 13 07/26/24 03:00 97 9 L 07/26/24 02:45 97 15 07/26/24 02:30 95 15 07/26/24 02:15 96 16 103/77 07/26/24 02:00 92 16 07/26/24 01:45 94 16 07/26/24 01:30 93 16 07/26/24 01:15 93 16 07/26/24 01:00 95 18 07/26/24 00:45 97 18 07/26/24 00:30 97 16 07/26/24 00:15 98 16 145/79 07/26/24 00:00 95 94 16 07/25/24 23:45 95 16 132/74 07/25/24 23:30 92 18 07/25/24 23:15 89 17 07/25/24 23:00 95 16 07/25/24 22:45 101 H 16 07/25/24 22:30 97 16 07/25/24 22:15 98 18 07/25/24 22:00 103 H 15 07/25/24 21:45 95 19 07/25/24 21:30 108 H 13 07/25/24 21:15 98 17 111/77 07/25/24 21:12 98 07/25/24 21:04 93 07/25/24 21:00 89 18 07/25/24 20:45 90 19 07/25/24 20:30 93 17 07/25/24 20:15 98 18 07/25/24 20:00 95 94 18 07/25/24 19:45 98.7 F 92 20 07/25/24 19:30 92 16 07/25/24 19:15 89 18 07/25/24 19:00 93 16 07/25/24 18:45 89 13 07/25/24 18:30 93 22 07/25/24 18:15 94 20 07/25/24 18:00 88 16 07/25/24 17:50 87 14 07/25/24 17:42 84 18 07/25/24 17:40 84 15 07/25/24 17:33 07/25/24 17:32 74 18 07/25/24 17:30 97.7 F 76 16 07/25/24 17:23 80 19 07/25/24 16:40 75 18 93/53 07/25/24 16:26 76 18 98/57 07/25/24 16:11 74 18 07/25/24 15:56 82 18 07/25/24 15:41 87 18 07/25/24 15:26 88 18 07/25/24 15:11 87 18 07/25/24 14:56 81 18 07/25/24 14:41 84 18 93/49 07/25/24 14:26 87 18 105/55 07/25/24 14:11 82 18 100/41 07/25/24 13:56 79 16 97/48 BP Pulse Ox 07/26/24 13:00 99 07/26/24 12:06 07/26/24 12:00 100 07/26/24 11:51 07/26/24 11:00 95 07/26/24 10:00 99 07/26/24 09:00 98 07/26/24 08:07 07/26/24 08:00 100 07/26/24 07:58 07/26/24 07:57 07/26/24 07:53 96 07/26/24 07:48 07/26/24 07:00 97 07/26/24 06:45 99 07/26/24 06:30 100 07/26/24 06:15 97 07/26/24 06:00 96 07/26/24 05:45 97 07/26/24 05:30 97 07/26/24 05:15 96 07/26/24 05:00 95 07/26/24 04:45 93 L 07/26/24 04:30 92 L 07/26/24 04:15 92 L 07/26/24 04:00 91 L 07/26/24 03:45 94 L 07/26/24 03:30 92 L 07/26/24 03:15 91 L 07/26/24 03:00 91 L 07/26/24 02:45 95 07/26/24 02:30 94 L 07/26/24 02:15 93 L 07/26/24 02:00 91 L 07/26/24 01:45 92 L 07/26/24 01:30 91 L 07/26/24 01:15 93 L 07/26/24 01:00 93 L 07/26/24 00:45 94 L 07/26/24 00:30 93 L 07/26/24 00:15 91 L 07/26/24 00:00 95 07/25/24 23:45 93 L 07/25/24 23:30 92 L 07/25/24 23:15 91 L 07/25/24 23:00 91 L 07/25/24 22:45 91 L 07/25/24 22:30 92 L 07/25/24 22:15 89 L 07/25/24 22:00 92 L 07/25/24 21:45 94 L 07/25/24 21:30 95 07/25/24 21:15 94 L 07/25/24 21:12 07/25/24 21:04 07/25/24 21:00 89 L 07/25/24 20:45 89 L 07/25/24 20:30 96 07/25/24 20:15 96 07/25/24 20:00 94 L 07/25/24 19:45 93 L 07/25/24 19:30 94 L 07/25/24 19:15 94 L 07/25/24 19:00 94 L 07/25/24 18:45 94 L 07/25/24 18:30 93 L 07/25/24 18:15 94 L 07/25/24 18:00 94 L 07/25/24 17:50 97 07/25/24 17:42 07/25/24 17:40 97 07/25/24 17:33 98 07/25/24 17:32 07/25/24 17:30 98 07/25/24 17:23 07/25/24 16:40 125/61 98 07/25/24 16:26 127/65 98 07/25/24 16:11 135/69 98 07/25/24 15:56 117/56 97 07/25/24 15:41 99/47 97 07/25/24 15:26 101/51 99 07/25/24 15:11 109/46 93 L 07/25/24 14:56 115/48 95 07/25/24 14:41 95 07/25/24 14:26 99 07/25/24 14:11 98 07/25/24 13:56 9 L Intake and Output 07/25/24 07/26/24 07/26/24 22:59 06:59 14:59 Intake Total 6005.232 2429 600 Output Total 800 740 225 Balance 537.715 430 375 Intake: Intake, IV Titration 587.715 420 Amount Dextrose 5%-0.45% NaCl 1, 250 400 000 ml @ 50 mls/hr IV . Q20H [facility] Rx#:[id number] Lactated Ringers 1,000 ml 100 20 @ 20 mls/hr IV .Q24H [facility] Rx#:[id number] Phenylephrine 40 mg In 37.715 Sodium Chloride 0.9% 250 ml @ 0.5 MCG/KG/MIN 24. 384 mls/hr IV .[id number] [facility] Rx#:[id number] ceFAZolin 3 gm In Sodium 200 Chloride 0.9% 100 ml @ 200 mls/hr IVPB Q8HR [facility] Rx#:[id number] Oral 750 750 600 Output: Urine 800 740 225 Other: Voiding Method Indwelling Catheter Indwelling Catheter Indwelling Catheter Weight 131.1 kg 129.954 kg ABP, PAP, CO, CI - Last 8 Hours Arterial Blood Pressure 101/53 Arterial Blood Pressure 122/53 Arterial Blood Pressure 109/43 Arterial Blood Pressure 94/44 Arterial Blood Pressure 128/55 Arterial Blood Pressure 113/47 Arterial Blood Pressure 110/54 Arterial Blood Pressure 115/51 Arterial Blood Pressure 103/51 Arterial Blood Pressure 100/52 CONSTITUTIONAL: Revealed a 64-year-old white male in no distress on room air RESPIRATORY: Diminished breath sounds on the left side otherwise lungs are clear CARDIOVASCULAR: Distant S1-S2, no S3 gallop no murmur GASTROINTESTINAL: Soft nontender.No rebound no guarding INTEGUMENTARY: No rashes good perfusion bilaterally NEUROLOGIC: Alert and oriented x 3 no gross focal deficits MUSKULOSKELETAL: No deformities no relation range of motion PSYCHIATRIC: Normal mood affect and no mental status examination Results - Laboratory Findings CBC and BMP: 07/26/24 05:19 04/11/25 05:19 Abnormal lab findings: Abnormal Labs 07/19/24 07/25/24 07/25/24 11:54 15:29 17:27 WBC 16.18 H RBC 2.67 L Hgb 9.0 L Hct 26.5 L MCV 99.3 H MCH 33.7 H Immature Gran # Neutrophils # Monocytes # Sodium BUN Glucose POC Glucose (mg/dL) 130 H Calcium Crossmatch See Detail 07/25/24 07/25/24 07/26/24 19:38 23:00 05:19 WBC 16.38 H 13.48 H RBC 2.84 L 2.78 L Hgb 9.4 L 9.3 L Hct 28.4 L 27.9 L MCV 100.0 H 100.4 H MCH 33.1 H 33.5 H Immature Gran # Neutrophils # Monocytes # Sodium 135 L BUN 24 H Glucose 121 H POC Glucose (mg/dL) Calcium 8.3 L Crossmatch 07/26/24 05:19 WBC 12.82 H RBC 2.82 L Hgb 9.4 L Hct 28.4 L MCV 100.7 H MCH 33.3 H Immature Gran # 0.08 H Neutrophils # 9.09 H Monocytes # 1.41 H Sodium BUN Glucose POC Glucose (mg/dL) Calcium Crossmatch - Diagnostic Findings Chest x-ray: image reviewed (As noted in HPI) Assessment and Plan Assessment: Impression: POD #1 left thoracoscopy with attempted robotic left lower lobectomy, left thoracotomy with left pneumonectomy, mediastinal lymph node dissection, cryoablation of intercostal nerves Left lower lobe squamous cell carcinoma, status post induction therapy Ex-smoker History of hypothyroidism Chronic anemia Recommendation: Continue incentive spirometry Continue to monitor in ICU Increase activity as tolerated/ambulate Continue GI DVT prophylaxis Continue pain control management Continue bronchodilators Will continue to follow Time with Patient: Greater than 30
[2024-07-27 07:36] LABS: HCT 25.7 % (39.6-50.0); HGB 8.3 g/dL (13.0-17.0); MCH 32.9 pg (27.0-32.0); MCHC 32.3 g/dL (32.0-37.0); Mean Platelet Volume 10.8 fL (9.5-12.2); Platelet Count 290 10*3/uL (140-440); RBC 2.52 10*6/uL (4.40-5.60); RDW 15.8 % (11.5-14.5); WBC 11.01 10*3/uL (4.50-10.00)
[2024-07-27] MEDS ORDERED: MAGNESIUM HYDROXIDE 2,400 MG/30 ML CUP PO PRN (07:39)
[2024-07-27] MEDS ORDERED: ALPRAZolam 0.25 MG TAB PO PRN (07:39)
--- NOTE | 2024-07-27 08:09 | P.PN ---
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 History of hypothyroid, pneumonia in 2023, left lower extremity cellulitis, anemia, and previous tobacco dependence POD #2 left thoracoscopy with attempted robotic left lower lobectomy, left thoracotomy with left pneumonectomy, mediastinal lymph node dissection, cryoablation of intercostal nerves The patient was seen and examined this morning sitting up in recliner on the cardiac stepdown unit in no acute distress. Remains in sinus rhythm to sinus tach, hemodynamically stable. Currently on 2 L nasal cannula with oxygen saturation in the high 90s, taken off oxygen and at rest is satting 95% on room air. Able to achieve 1500 mL on his incentive spirometry. Epidural in place, patient states pain is controlled, his only complaint of pain is in his shins due to SCDs, does state that his back itches. Patient just got up and out of bed on his own and states he feels very anxious today and a bit short of breath. Chest x-ray, labs reviewed. Objective - Vital Signs Vital signs: Vital Signs Temp 98.7 F 07/27/24 02:57 Pulse 100 07/27/24 02:57 Resp 17 07/27/24 02:57 BP 111/68 07/27/24 02:57 Pulse Ox 96 07/27/24 02:57 FiO2 Intake & Output 07/26/24 07/27/24 07/27/24 18:59 06:59 18:59 Intake Total 840 184.75 Output Total 575 700 Balance 265 -515.25 Weight 129.8 kg Intake: Intake, IV Titration 184.75 Amount Ropivacaine 250 mg 184.75 Hydromorphone (Pf) 5 mg In Sodium Chloride 0.9% 200 ml @ Per Protocol EPIDURAL .Q0M PRN Rx#: [id number] Oral 840 Output: Urine 575 700 Other: Voiding Method Indwelling Catheter Indwelling Catheter ABP, PAP, CO, CI - Last Documented Arterial Blood Pressure 101/53 - Exam CONSTITUTIONAL: Appears comfortable, cooperative, no acute distress, anxious RESPIRATORY: Lungs sounds diminished on the left. Respirations even, nonlabored. On 2 L nasal cannula with oxygen saturation 96%, on room air at rest patient is 95%. Able to achieve 1500 mL on incentive spirometry. Strong cough. CARDIOVASCULAR: S1, S2 present. Regular rate and rhythm, sinus rhythm to sinus tach on telemetry. Palpable peripheral pulses bilaterally. Trace generalized edema present. No calf pain or tenderness noted. SCDs present. GASTROINTESTINAL: Abdomen soft, nontender, nondistended. Active bowel sounds present 4 quadrants. Tolerating diet. Denies flatus GENITOURINARY: Benitez present draining clear, yellow urine. Output 1275 mL in the last 24 hours INTEGUMENTARY: Skin is warm and dry with evidence of good perfusion. Thoracic incision well approximated and covered with dry intact dressing. NEUROLOGIC: Cranial nerves II through XII intact MUSKULOSKELETAL: Able to move all extremities, strength equal bilaterally, gait normal PSYCHIATRIC: Alert and oriented to person place and time, appropriate affect, intact judgment and insight - Allied health notes Allied health notes reviewed: nursing - Labs CBC & Chem 7: 07/27/24 06:10 07/27/24 06:10 Labs: Abnormal Lab Results - Last 24 Hours (Table) 07/27/24 Range/Units 06:10 WBC 11.01 H (4.50-10.00) 10*3/uL RBC 2.52 L (4.40-5.60) 10*6/uL Hgb 8.3 L (13.0-17.0) g/dL Hct 25.7 L (39.6-50.0) % MCV 102.0 H (80.0-97.0) fL MCH 32.9 H (27.0-32.0) pg - Imaging and Cardiology Chest x-ray: image reviewed Assessment and Plan Assessment: Lung cancer, left lower lobe, biopsy positive 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 Bronchodilators per pulmonology Increase activity, ambulate as tolerated Will monitor daily labs and x-rays, electrolyte replacement per protocol, will give 20 mg IV push Lasix today, fluid restriction added Pain control per current medication regimen Final pathology pending GI/DVT prophylaxis More recommendations to follow as patient progresses
[2024-07-27 08:25] LABS: African American GFR (CKD) >90 (>60 ml/min/1.73 sqM); Anion Gap 4 mmol/L; Blood Urea Nitrogen 25 mg/dL (9-20); Carbon Dioxide 28 mmol/L (22-30); Chloride 98 mmol/L (98-107); Glucose 111 mg/dL (74-99); Non-African American GFR(CKD) 87 (>60 ml/min/1.73 sqM); Potassium 4.4 mmol/L (3.5-5.1); Sodium 130 mmol/L (137-145)
[2024-07-27] MEDS: FUROSEMIDE 10 MG/ML 2 ML VIAL IV ONE (09:16)
[2024-07-27] MEDS: METOPROLOL TARTRATE 25 MG TAB PO SCH (09:17)
[2024-07-27] MEDS: SENNOSIDES-DOCUSATE SODIUM 1 EACH TAB PO SCH (09:17)
--- NOTE | 2024-07-27 09:23 | XR ---
EXAMINATION TYPE: XR chest 1V portable DATE OF EXAM: 07/27/2024 4:43 AM COMPARISON: 07/26/2024 CLINICAL INDICATION: Male, 64 years old with history of Post left pneumonectomy, TECHNIQUE: XR chest 1V portable view(s) obtained. FINDINGS: The heart size is prominent. The pulmonary vasculature is prominent. There is a large right-sided pneumothorax is surgical clips are present from the patient's reported l eft pneumonectomy. Subcutaneous air is present IMPRESSION: 1. Persistent large left pneumothorax postpneumonectomy. Subcutaneous emphysema is present. 2. Cardiomegaly. 3. Prominent pulmonary vascular markings on the right [facility] Florencio Granger, , 07/27/2024 9:21 AM
--- NOTE | 2024-07-27 13:15 | P.PN ---
Subjective Progress Note Date: 07/27/24 Principal diagnosis: Status post pneumonectomy This is a 64-year-old white male who was initially seen by Dr. Grubbs on 01/04/2024, patient had a CT of the chest at that time showing a 6.7 x 4.6 cm mass in the left lower lobe. Patient had at least a 28-[id number] smoking history, although he quit years ago, at that time the patient also had left lower extremity cellulitis which was treated with daptomycin and cefepime by infectious disease. Since that admission patient had outpatient follow-up with Dr. 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 Needle aspirations were negative. Patient received chemotherapy by medical oncology, recent PET scan showed left lower lobe mass, SUV 13.7 previous ly 21.5 and the mass was noted to extend to the pulmonary hilum. Patient was referred to Dr. Naranjo he is now post induction therapy and felt that the PET scan showing the increase in the size of the tumor with no evidence of other metastatic lesions hence the plan was to perform left lower lobectomy however on 07/25 patient underwent left thoracotomy with attempted robotic left lower lobectomy left thoracotomy with left pneumonectomy mediastinal lymph node dissection, cryoablation of intercostal nerves, it was felt that the patient extended into the left upper lobe. And that is the reason required thoracotomy and pneumonectomy. Postoperatively patient was admitted to the ICU, and I was asked to see him in consultation. Patient was seen today on 07/27/24, patient is now postoperative day #2 patient is doing great, patient is on room air, not in any distress. He is status post left-sided lobectomy. Chest x-ray today showed postoperative changes some subcutaneous emphysema present, he has cardiomegaly, and prominent pulmonary vasculature on the right side. WBC count is 11 hemoglobin 8.3 electrolytes are normal renal profile is normal Objective - Vital Signs Vital signs: Vital Signs Temp 98.6 F 07/27/24 08:00 Pulse 80 07/27/24 12:00 Resp 16 07/27/24 12:00 BP 134/81 07/27/24 12:00 Pulse Ox 98 07/27/24 12:00 FiO2 Intake & Output 07/26/24 07/27/24 07/27/24 18:59 06:59 18:59 Intake Total 840 184.75 480 Output Total 135 809 4136 Balance 265 -515.25 -620 Weight 129.8 kg Intake: Intake, IV Titration 184.75 Amount Ropivacaine 250 mg 184.75 Hydromorphone (Pf) 5 mg In Sodium Chloride 0.9% 200 ml @ Per Protocol EPIDURAL .Q0M PRN Rx#: [id number] Oral 840 480 Output: Urine 140 567 8992 Other: Voiding Method Indwelling Catheter Indwelling Catheter Indwelling Catheter ABP, PAP, CO, CI - Last Documented Arterial Blood Pressure 101/53 - Exam CONSTITUTIONAL: Revealed a 64-year-old white male in no distress on room air RESPIRATORY: Diminished breath sounds on the left side otherwise lungs are clear CARDIOVASCULAR: Distant S1-S2, no S3 gallop no murmur GASTROINTESTINAL: Soft nontender.No rebound no guarding INTEGUMENTARY: No rashes good perfusion bilaterally NEUROLOGIC: Alert and oriented x 3 no gross focal deficits MUSKULOSKELETAL: No deformities no relation range of motion PSYCHIATRIC: Normal mood affect and no mental status examination - Labs CBC & Chem 7: 07/27/24 06:10 07/27/24 06:10 Labs: Abnormal Lab Results - Last 24 Hours (Table) 07/27/24 07/27/24 Range/Units 06:10 06:10 WBC 11.01 H (4.50-10.00) 10*3/uL RBC 2.52 L (4.40-5.60) 10*6/uL Hgb 8.3 L (13.0-17.0) g/dL Hct 25.7 L (39.6-50.0) % MCV 102.0 H (80.0-97.0) fL MCH 32.9 H (27.0-32.0) pg Sodium 130 L (137-145) mmol/L BUN 25 H (9-20) mg/dL Glucose 111 H (74-99) mg/dL Calcium 8.0 L (8.4-10.2) mg/dL Assessment and Plan Assessment: Impression: POD #2 left thoracoscopy with attempted robotic left lower lobectomy, left thoracotomy with left pneumonectomy, mediastinal lymph node dissection, cryoablation of intercostal nerves Left lower lobe squamous cell carcinoma, status post induction therapy Ex-smoker History of hypothyroidism Chronic anemia Recommendation: Continue incentive spirometry Increase activity as tolerated/ambulate Continue GI DVT prophylaxis Continue pain control management Continue bronchodilators Will continue to follow Time with Patient: Less than 30
--- NOTE | 2024-07-27 18:15 | P.PN ---
Progress Note - Text Progress Note Date: 07/27/24 Postoperative day #2 status post thoracotomy with left pneumonectomy, epidural catheter placed for postoperative analgesia, patient doing well epidural site okay, patient currently on combination of epidural infusion solution of Ropivacaine 0.0625% and Dilaudid 20 g per mL the infusion rate at 5 ml per hour , patient had no motor deficit epidural site okay , vital signs stable ,VAS 2 /10 , Assessment and plan= post operative day #2 patient doing well ,pain well controlled , there is no anesthesia related complications
[2024-07-28 07:26] LABS: HCT 24.8 % (39.6-50.0); HGB 8.2 g/dL (13.0-17.0); MCH 33.3 pg (27.0-32.0); MCHC 33.1 g/dL (32.0-37.0); MCV 100.8 fL (80.0-97.0); Mean Platelet Volume 10.4 fL (9.5-12.2); Platelet Count 287 10*3/uL (140-440); RBC 2.46 10*6/uL (4.40-5.60); RDW 15.3 % (11.5-14.5); WBC 8.84 10*3/uL (4.50-10.00)
[2024-07-28] MEDS ORDERED: KETOROLAC 15 MG/ML 1 ML VIAL IVP PRN (07:35)
--- NOTE | 2024-07-28 07:46 | P.PN ---
Subjective Progress Note Date: 07/28/24 Principal diagnosis: Lung cancer, left lower lobe, biopsy positive poorly differentiated non-small cell carcinoma having features compatible with squamous cell carcinoma, status post induction therapy. History of hypothyroid, pneumonia in 2023, left lower extremity cellulitis, anemia, and previous tobacco dependence POD #3 left thoracoscopy with attempted robotic left lower lobectomy, left thoracotomy with left pneumonectomy, mediastinal lymph node dissection, cryoablation of intercostal nerves The patient was seen and examined this morning sitting up in recliner on the cardiac stepdown unit in no acute distress. Remains in sinus rhythm to sinus tach, hemodynamically stable. Currently on room air with oxygen saturation in the low to mid 90s. Able to achieve 2000 mL on his incentive spirometry. Epidural in place, patient states pain is controlled. States he feels a bit better than yesterday, has been ambulatory in the hallway with assistance. Chest x-ray, labs reviewed. Fluid buildup present in the left chest, expected given pneumonectomy. No other new concerns. Objective - Vital Signs Vital signs: Vital Signs Temp 98.8 F 07/28/24 04:15 Pulse 101 H 07/28/24 04:15 Resp 16 07/28/24 04:15 BP 100/63 07/28/24 04:15 Pulse Ox 93 L 07/28/24 04:15 FiO2 Intake & Output 07/27/24 07/28/24 07/28/24 18:59 06:59 18:59 Intake Total 960 121.5 Output Total 2450 800 Balance -1490 -678.5 Weight 132.9 kg Intake: Intake, IV Titration 121.5 Amount Ropivacaine 250 mg 121.5 Hydromorphone (Pf) 5 mg In Sodium Chloride 0.9% 200 ml @ Per Protocol EPIDURAL .Q0M PRN Rx#: [id number] Oral 960 Output: Urine 2450 800 Other: Voiding Method Indwelling Catheter Indwelling Catheter ABP, PAP, CO, CI - Last Documented Arterial Blood Pressure 101/53 - Exam CONSTITUTIONAL: Appears comfortable, cooperative, no acute distress RESPIRATORY: Lungs sounds absent on the left. Respirations even, nonlabored. Currently on room air with oxygen saturation 93%. Able to achieve 2000 mL on incentive spirometry. Strong cough. CARDIOVASCULAR: S1, S2 present. Regular rate and rhythm, sinus rhythm to sinus tach on telemetry. Palpable peripheral pulses bilaterally. Trace generalized edema present. No calf pain or tenderness noted. SCDs present. GASTROINTESTINAL: Abdomen soft, nontender, nondistended. Active bowel sounds present 4 quadrants. Tolerating diet. Positive flatus GENITOURINARY: Benitez present draining clear, yellow urine. Output 3250 mL in the last 24 hours INTEGUMENTARY: Skin is warm and dry with evidence of good perfusion. Thoracic incision well approximated and covered with dry intact dressing. NEUROLOGIC: Cranial nerves II through XII intact MUSKULOSKELETAL: Able to move all extremities, strength equal bilaterally, gait normal PSYCHIATRIC: Alert and oriented to person place and time, appropriate affect, intact judgment and insight - Allied health notes Allied health notes reviewed: nursing - Labs CBC & Chem 7: 07/28/24 06:25 07/28/24 06:25 Labs: Abnormal Lab Results - Last 24 Hours (Table) 07/27/24 07/28/24 Range/Units 06:10 06:25 RBC 2.46 L (4.40-5.60) 10*6/uL Hgb 8.2 L (13.0-17.0) g/dL Hct 24.8 L (39.6-50.0) % MCV 100.8 H (80.0-97.0) fL MCH 33.3 H (27.0-32.0) pg Sodium 130 L (137-145) mmol/L BUN 25 H (9-20) mg/dL Glucose 111 H (74-99) mg/dL Calcium 8.0 L (8.4-10.2) mg/dL - Imaging and Cardiology Chest x-ray: image reviewed Assessment and Plan Assessment: Lung cancer, left lower lobe, biopsy positive poorly differentiated non-small cell carcinoma having features compatible with squamous cell carcinoma, status post induction therapy, status post left thoracoscopy with attempted robotic left lower lobectomy, left thoracotomy with left pneumonectomy, mediastinal lymph node dissection, cryoablation of intercostal nerves History of hypothyroid Pneumonia in 2023 Left lower extremity cellulitis Anemia Previous tobacco dependence, FEV1 88% of predicted, DLCO 73% of predicted Plan: Continue current medication regimen Encourage incentive spirometry use 10 times every hour while awake. Bronchodilators per pulmonology Increase activity, ambulate as tolerated Will monitor daily labs and x-rays, electrolyte replacement per protocol. Will give 20 mg lasix IVP x1 Pain control per current medication regimen. Discontinue epidural, continue tramadol, Tylenol, Toradol added Once epidural discontinued, may discontinue Benitez catheter, may bladder scan and straight cath for greater than 300 mL residual Medication added to bowel regimen Final pathology pending GI/DVT prophylaxis More recommendations to follow as patient progresses
[2024-07-28 07:56] LABS: African American GFR (CKD) >90 (>60 ml/min/1.73 sqM); Anion Gap 4 mmol/L; Blood Urea Nitrogen 24 mg/dL (9-20); Carbon Dioxide 29 mmol/L (22-30); Chloride 97 mmol/L (98-107); Glucose 126 mg/dL (74-99); Non-African American GFR(CKD) 87 (>60 ml/min/1.73 sqM); Potassium 4.3 mmol/L (3.5-5.1); Sodium 130 mmol/L (137-145)
--- NOTE | 2024-07-28 08:23 | XR ---
EXAMINATION TYPE: XR chest 2V DATE OF EXAM: 07/28/2024 6:56 AM COMPARISON: None. CLINICAL INDICATION: Male, 64 years old with history of Post left pneumonectomy, TECHNIQUE: XR chest 2V view(s) obtained. FINDINGS: Mediastinum shifted to the left. Large left apical pneumothorax remains present. Subcutaneous air is present. Air-fluid levels within the left hemithorax post pneumonectomy. The pulmonary vasculature is normal, diminished from comparison. The lungs are clear. IMPRESSION: 1. Improving vascular prominence. 2. Persistent hydropneumothorax post left pneumonectomy [facility], , 07/28/2024 8:21 AM
[2024-07-28] MEDS: polyethylene glycoL 3350 17 GM POWD.PACK PO SCH (09:44)
[2024-07-28] MEDS: FUROSEMIDE 10 MG/ML 2 ML VIAL IV ONE (09:44)
--- NOTE | 2024-07-28 11:58 | P.PN ---
Subjective Progress Note Date: 07/28/24 Principal diagnosis: Status post pneumonectomy This is a 64-year-old white male who was initially seen by Dr. Grubbs on 01/04/2024, patient had a CT of the chest at that time showing a 6.7 x 4.6 cm mass in the left lower lobe. Patient had at least a [id number] smoking history, although he quit years ago, at that time the patient also had left lower extremity cellulitis which was treated with daptomycin and cefepime by infectious disease. Since that admission patient had outpatient follow-up with Dr. 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 Needle aspirations were negative. Patient received chemotherapy by medical oncology, recent PET scan showed left lower lobe mass, SUV 13.7 previous ly 21.5 and the mass was noted to extend to the pulmonary hilum. Patient was referred to Dr. Naranjo he is now post induction therapy and felt that the PET scan showing the increase in the size of the tumor with no evidence of other metastatic lesions hence the plan was to perform left lower lobectomy however on 07/25 patient underwent left thoracotomy with attempted robotic left lower lobectomy left thoracotomy with left pneumonectomy mediastinal lymph node dissection, cryoablation of intercostal nerves, it was felt that the patient extended into the left upper lobe. And that is the reason required thoracotomy and pneumonectomy. Postoperatively patient was admitted to the ICU, and I was asked to see him in consultation. Patient was seen today on 07/27/24, patient is now postoperative day #2 patient is doing great, patient is on room air, not in any distress. He is status post left-sided lobectomy. Chest x-ray today showed postoperative changes some subcutaneous emphysema present, he has cardiomegaly, and prominent pulmonary vasculature on the right side. WBC count is 11 hemoglobin 8.3 electrolytes are normal renal profile is normal Seen today on 07/28/2024, patient is nowPOD #3 left thoracoscopy with attempted robotic left lower lobectomy, left thoracotomy with left pneumonectomy, mediastinal lymph node dissection, cryoablation of intercostal nerves. Patient is doing great, he is on room air, does not seem to be in any distress, continues to have epidural in place, has been ambulating in the hallway with assistance, chest x-ray is showing mostly postoperative changes and fluid buildup as expected post pneumonectomy. WBC count is 8.8 hemoglobin 8.2 electrolytes are normal BUN is 24 creatinine 0.92 Objective - Vital Signs Vital signs: Vital Signs Temp 97.5 F L 07/28/24 08:00 Pulse 90 07/28/24 11:55 Resp 18 07/28/24 11:55 BP 137/70 07/28/24 08:00 Pulse Ox 94 L 07/28/24 08:11 FiO2 Intake & Output 07/27/24 07/28/24 07/28/24 18:59 06:59 18:59 Intake Total 960 121.5 264.167 Output Total 2450 800 1000 Balance -1490 -678.5 -735.833 Weight 132.9 kg Intake: Intake, IV Titration 121.5 24.167 Amount Ropivacaine 250 mg 121.5 24.167 Hydromorphone (Pf) 5 mg In Sodium Chloride 0.9% 200 ml @ Per Protocol EPIDURAL .Q0M PRN Rx#: [id number] Oral 960 240 Output: Urine 2450 800 1000 Uretheral (Benitez) 1000 Other: Voiding Method Indwelling Catheter Indwelling Catheter Indwelling Catheter ABP, PAP, CO, CI - Last Documented Arterial Blood Pressure 101/53 - Exam CONSTITUTIONAL: Revealed a 64-year-old white male in no distress on room air RESPIRATORY: Diminished breath sounds on the left side otherwise lungs are clear CARDIOVASCULAR: Distant S1-S2, no S3 gallop no murmur GASTROINTESTINAL: Soft nontender.No rebound no guarding INTEGUMENTARY: No rashes good perfusion bilaterally NEUROLOGIC: Alert and oriented x 3 no gross focal deficits MUSKULOSKELETAL: No deformities no relation range of motion PSYCHIATRIC: Normal mood affect and no mental status examination - Labs CBC & Chem 7: 07/28/24 06:25 07/28/24 06:25 Labs: Abnormal Lab Results - Last 24 Hours (Table) 07/28/24 07/28/24 Range/Units 06:25 06:25 RBC 2.46 L (4.40-5.60) 10*6/uL Hgb 8.2 L (13.0-17.0) g/dL Hct 24.8 L (39.6-50.0) % MCV 100.8 H (80.0-97.0) fL MCH 33.3 H (27.0-32.0) pg Sodium 130 L (137-145) mmol/L Chloride 97 L (98-107) mmol/L BUN 24 H (9-20) mg/dL Glucose 126 H (74-99) mg/dL Calcium 8.0 L (8.4-10.2) mg/dL Assessment and Plan Assessment: Impression: POD #3 left thoracoscopy with attempted robotic left lower lobectomy, left thoracotomy with left pneumonectomy, mediastinal lymph node dissection, cryoablation of intercostal nerves Left lower lobe squamous cell carcinoma, status post induction therapy Ex-smoker History of hypothyroidism Chronic anemia Recommendation: Continue incentive spirometry Increase activity as tolerated/ambulate Continue GI DVT prophylaxis Continue pain control management Continue bronchodilators Will continue to follow Time with Patient: Less than 30
--- NOTE | 2024-07-28 15:55 | P.PN ---
Progress Note - Text Progress Note Date: 07/28/24 (\) Postoperative day #3 status post thoracotomy with left upper pneumonectomy, epidural catheter placed for postoperative analgesia, patient doing well epidural site okay, catheter was discontinued daily by the nursing staff, epidural site looks fine, no erythema, no swelling no discharge, patient currently on Ultram 50 mg every 6 hours as needed for pain and he is currently on Toradol as needed Assessment and plan= post operative day #3 patient doing well ,pain well controlled , there is no anesthesia related complications, epidural catheter was discontinued today
[2024-07-28] MEDS: ACETAMINOPHEN TAB 325 MG TAB PO PRN (21:02)
[2024-07-29 07:07] LABS: HCT 25.5 % (39.6-50.0); HGB 8.6 g/dL (13.0-17.0); MCH 33.7 pg (27.0-32.0); MCHC 33.7 g/dL (32.0-37.0); Mean Platelet Volume 9.8 fL (9.5-12.2); Platelet Count 297 10*3/uL (140-440); RBC 2.55 10*6/uL (4.40-5.60); RDW 15.1 % (11.5-14.5); WBC 11.09 10*3/uL (4.50-10.00)
--- NOTE | 2024-07-29 07:46 | P.PN ---
Subjective Progress Note Date: 07/29/24 Principal diagnosis: Lung cancer, left lower lobe, biopsy positive poorly differentiated non-small cell carcinoma having features compatible with squamous cell carcinoma, status post induction therapy. History of hypothyroid, pneumonia in 2023, left lower extremity cellulitis, anemia, and previous tobacco dependence POD #4 left thoracoscopy with attempted robotic left lower lobectomy, left thoracotomy with left pneumonectomy, mediastinal lymph node dissection, cryoablation of intercostal nerves The patient was seen and examined this morning sitting up in recliner on the cardiac stepdown unit in no acute distress. Remains in sinus rhythm, hemodynamically stable. Currently on room air with oxygen saturation in the low to mid 90s. Able to achieve 2500 mL on his incentive spirometry. Has been ambulatory in the hallway with assistance. Epidural discontinued yesterday, patient states current pain medication regimen is providing sufficient pain relief. Patient did shower yesterday. He did have 1 episode last night of urinary retention requiring straight catheterization but was able to void this morning. He did have low-grade temp overnight and WBC 11 this morning, likely from straight catheterization. Chest x-ray, labs reviewed. Fluid buildup present in the left chest, expected given pneumonectomy. No other new concerns. Objective - Vital Signs Vital signs: Vital Signs Temp 99.7 F H 07/29/24 04:00 Pulse 91 07/29/24 04:00 Resp 17 07/29/24 04:00 BP 95/64 07/29/24 04:00 Pulse Ox 93 L 07/29/24 04:00 FiO2 Intake & Output 07/28/24 07/29/24 07/29/24 18:59 06:59 18:59 Intake Total 744.167 320 Output Total 1000 1400 Balance -255.833 -1080 Weight 133.4 kg Intake: IV 40 Invasive Line 2 20 Invasive Line 3 20 Intake, IV Titration 24.167 Amount Ropivacaine 250 mg 24.167 Hydromorphone (Pf) 5 mg In Sodium Chloride 0.9% 200 ml @ Per Protocol EPIDURAL .Q0M PRN Rx#: [id number] Oral 720 280 Output: Urine 1000 1400 Straight 700 Uretheral (Benitez) 1000 Other: Voiding Method Indwelling Catheter Toilet Urinal # Bowel Movements 1 ABP, PAP, CO, CI - Last Documented Arterial Blood Pressure 101/53 - Exam CONSTITUTIONAL: Appears comfortable, cooperative, no acute distress RESPIRATORY: Lungs sounds absent on the left. Respirations even, nonlabored. Currently on room air with oxygen saturation 93%. Able to achieve 2500 mL on incentive spirometry. Strong cough. CARDIOVASCULAR: S1, S2 present. Regular rate and rhythm, sinus rhythm to sinus tach on telemetry. Palpable peripheral pulses bilaterally. Trace generalized edema present. No calf pain or tenderness noted. SCDs present. GASTROINTESTINAL: Abdomen soft, nontender, nondistended. Active bowel sounds present 4 quadrants. Tolerating diet. Positive bowel movement 07/29 GENITOURINARY: Continues to void INTEGUMENTARY: Skin is warm and dry with evidence of good perfusion. Thoracic incision well approximated and covered with dry intact dressing. NEUROLOGIC: Cranial nerves II through XII intact MUSKULOSKELETAL: Able to move all extremities, strength equal bilaterally, gait normal PSYCHIATRIC: Alert and oriented to person place and time, appropriate affect, intact judgment and insight - Allied health notes Allied health notes reviewed: nursing - Labs CBC & Chem 7: 07/29/24 06:55 07/28/24 06:25 Labs: Abnormal Lab Results - Last 24 Hours (Table) 07/28/24 07/29/24 Range/Units 06:25 06:55 WBC 11.09 H (4.50-10.00) 10*3/uL RBC 2.55 L (4.40-5.60) 10*6/uL Hgb 8.6 L (13.0-17.0) g/dL Hct 25.5 L (39.6-50.0) % MCV 100.0 H (80.0-97.0) fL MCH 33.7 H (27.0-32.0) pg Sodium 130 L (137-145) mmol/L Chloride 97 L (98-107) mmol/L BUN 24 H (9-20) mg/dL Glucose 126 H (74-99) mg/dL Calcium 8.0 L (8.4-10.2) mg/dL - Imaging and Cardiology Chest x-ray: image reviewed Assessment and Plan Assessment: Lung cancer, left lower lobe, biopsy positive poorly differentiated non-small cell carcinoma having features compatible with squamous cell carcinoma, status post induction therapy, status post left thoracoscopy with attempted robotic left lower lobectomy, left thoracotomy with left pneumonectomy, mediastinal lymph node dissection, cryoablation of intercostal nerves History of hypothyroid Pneumonia in 2023 Left lower extremity cellulitis Anemia Previous tobacco dependence, FEV1 88% of predicted, DLCO 73% of predicted Plan: Continue current medication regimen Encourage incentive spirometry use 10 times every hour while awake. Bronchodilators per pulmonology Increase activity, ambulate as tolerated Will monitor daily labs and x-rays, electrolyte replacement per protocol Pain control per current medication regimen Final pathology pending GI/DVT prophylaxis Discharge planning in progress, anticipate discharge to home today More recommendations to follow as patient progresses
[2024-07-29 07:47] LABS: African American GFR (CKD) >90 (>60 ml/min/1.73 sqM); Anion Gap 3 mmol/L; Blood Urea Nitrogen 29 mg/dL (9-20); Calcium 8.1 mg/dL (8.4-10.2); Carbon Dioxide 28 mmol/L (22-30); Chloride 99 mmol/L (98-107); Glucose 118 mg/dL (74-99); Non-African American GFR(CKD) 89 (>60 ml/min/1.73 sqM); Potassium 4.2 mmol/L (3.5-5.1); Sodium 130 mmol/L (137-145)
--- NOTE | 2024-07-29 08:04 | XR ---
EXAMINATION TYPE: XR chest 2V DATE OF EXAM: 07/29/2024 6:28 AM COMPARISON: Multiple radiographs, with the most recent on 07/28/2024, PET/CT 06/20/2024, CT chest 2023 TECHNIQUE: XR chest 2V Frontal and lateral views of the chest. CLINICAL INDICATION:Male, 64 years old with history of post left pneumonectomy; FINDINGS: Lungs/Pleura: Stable moderate size left hydropneumothorax with few air-fluid levels within the left o pacified mid to lower lung. Elevation of the left hemidiaphragm related to volume loss from surgical intervention. The right lung is clear. Pulmonary vascularity: Unremarkable. Heart/mediastinum: Cardiomediastinal silhouette is shifted to the left from left lung volume loss. Musculoskeletal: No acute osseous pathology. Other findings: Left supraclavicular and chest wall subcutaneous emphysema. Left chest wall skin stap les. IMPRESSION: 1. Postsurgical changes from left pneumonectomy with stable moderate-sized left hydropneumothorax. M ore prominent air-fluid levels within the left hemithorax postpneumonectomy. 2. Similar left supraclavicular and chest wall subcutaneous emphysema from prior surgery. [facility], , 07/29/2024 8:02 AM
[2024-07-29 08:32] VITALS: BP 107/67; RESP 20; TEMP 98
[2024-07-29] MEDS: FUROSEMIDE 20 MG TAB PO SCH (09:39)
--- NOTE | 2024-07-29 11:23 | P.DS ---
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 Grubbs for pulmonology, and Dr. Shannon Garcia for oncology. This gentleman was hospitalized the end of 2023 with cellulitis of his lower extremity and CT scan was performed to rule out pulmonary embolism. The CT scan demonstrated a 7 cm mass in the left lower lobe. Workup included bronchoscopy and EBUS, PET scan, and MRI of the brain. The tumor measured 7.7 cm in diameter and was biopsy proven positive for squamous cell carcinoma. PET scan showed uptake only in the tumor and MRI of the brain was negative for metastasis. He was referred to Dr. Naranjo for treatment recommendations. Given the size of the mass he was staged as 3A and recommended to undergo induction chemotherapy. Upon completion of induction therapy repeat PET scan demonstrated decrease in the size of the tumor without evidence of metastatic disease. He was then recommended to undergo left lower lobectomy through robotic approach with the high likelihood of needing open thoracotomy due to placement of the tumor. The usual perioperative course was discussed in detail with the patient and his family, all risks and benefits were explained, all questions were answered, and consent was obtained to proceed with surgery. The patient was scheduled for surgery at the earliest possible date. HOSPITAL COURSE: The patient was brought to the hospital on 07/25/24, taken to the preoperative area, prepared in the usual fashion, and subsequently taken to the operating room where Dr. Naranjo performed left thoracoscopy with attempted robotic left lower lobectomy which he then converted to left thoracotomy with left pneumonectomy. Upon completion of surgery the patient was transferred to the recovery room for further monitoring. He was then admitted to the intensive care unit where he continued to be recovered and monitored hemodynamically. All lines, tubes, and drips were discontinued when appropriate, and he was transferred to 3 S. cardiac stepdown unit for further monitoring and rehabilitation. His oxygen was titrated down, he continued to work with physical and occupational therapy, he was tolerating oral diet, his pain was co ntrolled, and he was ready to be discharged to home on postoperative day #4. He received written and verbal instruction regarding his medications, activity restrictions, signs and symptoms requiring physician notification, and follow-up appointments. Patient Condition at Discharge: Stable Plan - Discharge Summary Discharge Rx Participant: Yes New Discharge Prescriptions: New Furosemide [Lasix] 20 mg PO DAILY #14 tab Metoprolol Tartrate [Lopressor] 25 mg PO BID #60 tab polyethylene glycoL 3350 [Miralax] 17 gm PO DAILY PRN packet PRN Reason: Constipation Sennosides-Docusate Sodium [Senokot-S] 2 each PO BID PRN tab PRN Reason: Constipation Acetaminophen Tab [Tylenol] 650 mg PO Q4HR PRN tab PRN Reason: Mild To Moderate Pain (1 - 6) traMADol HCl [Ultram] 50 mg PO QID PRN #12 tab PRN Reason: Breakthrough Pain Continue Multivit-Mins/Iron/Folic/Lycop [Centrum Men's Tablet] 1 tab PO DAILY [place]-3/Dha/Epa/Fish Oil [Fish Oil 1,000 mg Softgel] 1 cap PO DAILY Zinc Gluconate [Zinc] 50 mg PO DAILY Levothyroxine Sodium [Synthroid] 100 mcg PO HS Glucosam/Artem-Msm1/C/Antoni/Bosw [Glucosamine-Chondroitin Tablet] 1 tab PO DAILY Discontinued Quercetin 1,000 mg PO DAILY Discharge Medication List Glucosam/Artem-Msm1/C/Antoni/Bosw [Glucosamine-Chondroitin Tablet] 1 tab PO DAILY 12/30/23 [History] Levothyroxine Sodium [Synthroid] 100 mcg PO HS 12/30/23 [History] Multivit-Mins/Iron/Folic/Lycop [Centrum Men's Tablet] 1 tab PO DAILY 12/30/23 [History] [place]-3/Dha/Epa/Fish Oil [Fish Oil 1,000 mg Softgel] 1 cap PO DAILY 12/30/23 [History] Zinc Gluconate [Zinc] 50 mg PO DAILY 12/30/23 [History] Acetaminophen Tab [Tylenol] 650 mg PO Q4HR PRN tab 07/29/24 [Rx] Furosemide [Lasix] 20 mg PO DAILY #14 tab 07/29/24 [Rx] Metoprolol Tartrate [Lopressor] 25 mg PO BID #60 tab 07/29/24 [Rx] Sennosides-Docusate Sodium [Senokot-S] 2 each PO BID PRN tab 07/29/24 [Rx] polyethylene glycoL 3350 [Miralax] 17 gm PO DAILY PRN packet 07/29/24 [Rx] traMADol HCl [Ultram] 50 mg PO QID PRN #12 tab 07/29/24 [Rx] Follow up Appointment(s)/Referral(s): Debbi Cordova NPC [REFERRING] - As Needed Shannon Garcia MD [STAFF PHYSICIAN] - 1 Week Virgilio Naranjo MD [STAFF PHYSICIAN] - 08/08/24 2:15 pm Isacc Grubbs DO [Doctor of Osteopathic Medicine] - 08/13/24 9:15 am Activity/Diet/Wound Care/Special Instructions: DISCHARGE INSTRUCTIONS: 1. No driving for 2 weeks, or until physician gives their ok. 2. No lifting, pushing, or pulling more than 10 pounds for 2 weeks. The physician will advise of any restriction changes. 3. Continue pain control per as needed orders. Alternate acetaminophen (Tylenol) and ibuprofen (Motrin/Advil) for pain. 4. Continue with incentive spirometry and splinting until otherwise directed by the physician. 5. Leave chest tube dressing for 48 hours. After that, remove all dressings and shower daily. 6. Routine incision care. No powders, lotions, ointments on incisions. 7. Please call surgeon/BOBBIN HANDLER for temp greater than 101 F or purulent drainage from incisions. 8. Smoking cessation counseling and program information provided. Quitting smoking is the most important step you can take to improve your health. For additional information and assistance to quit smoking, please call the [place] tobacco quit line (5-437-FTPT-NOW/ ) or online: https://www.[place].gov/[email or web address]-[email or web address]-hea [email or web address]-[email or web address] Discharge Disposition: HOME SELF-CARE
[2024-07-29 11:31] VITALS: PULSE 85
--- NOTE | 2024-07-29 22:42 | PN ---
PROGRESS NOTE DATE OF SERVICE: 07/29/2024 SUBJECTIVE: A 64-year-old male who underwent bronchoscopy back in January 2024. He was diagnosed with non-small cell lung cancer. More recently, the patient had an attempted robotic left lower lobectomy, left thoracotomy with a left pneumonectomy and mediastinal lymph node dissection, along with cryoablation of the intercostal nerves. The patient is postoperative day #4. The patient is sitting up in a chair next to the hospital bed. He is on room air. No IV fluids. Hoping to be discharged home today. CURRENT LABORATORY DATA: Includes a white count 11.1, hemoglobin 8.6, hematocrit 25.5, and a platelet count of 297,000. Sodium 130, potassium 4.2, chloride 99, CO2 of 28, BUN 29, and creatinine 0.89. Glucose is 118. Calcium is 8.1. Chest x-ray from today, shows postsurgical changes, and a previous left pneumonectomy. There is a moderate size left hydropneumothorax. Subcutaneous emphysema is unchanged. PHYSICAL EXAMINATION: VITAL SIGNS: Current vital signs are reviewed. Blood pressure is 107/67. Mean 80, room air saturation 97%. Heart rate 85, respiratory rate 18, and the patient is afebrile. GENERAL: He appears in no acute distress. HEENT: Grossly unremarkable. NECK: Supple. Full range of motion. No adenopathy. Neck veins are flat. CARDIOVASCULAR: Reveals regular rhythm and rate. Heart rate in the mid 80s. S1, S2 normal. There is no heart murmur. LUNGS: Reveal diminished breath sounds on the left. Right-sided breath sounds reveal a few scattered rhonchi. No wheezes or crackles. Breath sounds equal throughout the entire right lung. ABDOMEN: Soft. Bowel sounds are heard. EXTREMITIES: Intact. No cyanosis, clubbing, or edema. SKIN: Without rash. NEUROLOGIC: Brief, but nonfocal. ASSESSMENT: 1. Postoperative day #4, left thoracoscopy, with attempted robotic left lower lobectomy, left thoracotomy with left pneumonectomy, mediastinal lymph node dissection, cryoablation of the intercostal nerves. 2. Routine postoperative ventilator management. 3. Left lower lobe squamous cell carcinoma, status post induction therapy. 4. History of ex tobacco use. 5. History of hypothyroidism. 6. Chronic anemia. PLAN: The patient is doing well. He is on room air. He is not receiving any IV fluids. The patient will be discharged home possibly later today. He does have an appointment to see me on August 13. We will continue to follow. Prognosis is guarded. All labs, x- rays, and medications were reviewed. MALIA / DENIAN: [id number] /
== END 2024-07-29 11:46 | disposition home or self-care (01) | DRG 164 ==
LOC: 2ORMAIN 06:40 → 2SICU 14:43 → 3SCARD 07-26 13:50
PROVIDERS: ADMIT Thoracic Surgery (Cardiothoracic Vascular Surgery); ATTEND Thoracic Surgery (Cardiothoracic Vascular Surgery)
PROC: 8E0W4CZ Robotic Assisted Procedure of Trunk Region, Percutaneous Endoscopic Approach (ICD-10-PCS; principal; 2024-07-25 08:25)
PROC: 0BTL0ZZ Resection of Left Lung, Open Approach (ICD-10-PCS; principal; 2024-07-25 08:25)
PROC: 0BJL4ZZ Inspection of Left Lung, Percutaneous Endoscopic Approach (ICD-10-PCS; principal; 2024-07-25 08:25)
PROC: 07B70ZX Excision of Thorax Lymphatic, Open Approach, Diagnostic (ICD-10-PCS; principal; 2024-07-25 08:25)
PROC: 01580ZZ Destruction of Thoracic Nerve, Open Approach (ICD-10-PCS; principal; 2024-07-25 08:25)
DX: C34.32 Malignant neoplasm of lower lobe, left bronchus or lung (principal); C34.12 Malignant neoplasm of upper lobe, left bronchus or lung; C77.1 Secondary and unspecified malignant neoplasm of intrathoracic lymph nodes; L03.116 Cellulitis of left lower limb; Z68.41 Body mass index [BMI] 40.0-44.9, adult; E66.01 Morbid (severe) obesity due to excess calories; D64.9 Anemia, unspecified; E03.9 Hypothyroidism, unspecified; R33.9 Retention of urine, unspecified; Z53.32 Thoracoscopic surgical procedure converted to open procedure; Z87.01 Personal history of pneumonia (recurrent); Z79.890 Hormone replacement therapy; Z87.891 Personal history of nicotine dependence; Z88.1 Allergy status to other antibiotic agents; T81.82XA Emphysema (subcutaneous) resulting from a procedure, initial encounter
CPT/HCPCS: 64466; 71045; 71046; 80048; 83735; 85025; 85027; 86850; 86900; 86901; 86920; 88305; 88309; 88313; 88331; 88342; 94640; 94760